=== PATIENT | male | born 1950 | race Caucasian/White ===

== ENCOUNTER 2018-01-20 16:15 | Emergency (ER) | payer MEDICARE ==
[~2018-01-20] VITALS: Ht 172.7 cm; Wt 90.7 kg
[~2018-01-20 16:15] MED LIST: ACHD5005 PO; CYCL10TA9 PO; HYDR-1231 PO; HYDR-757 PO; WARF7.5T PO
[2018-01-20] MEDS ORDERED: LACTATED RINGERS 1,000 ML IV ONE (18:24)
[2018-01-20] MEDS ORDERED: fentaNYL INJECTION 100 MCG/2 ML AMP IVP ONE (18:30)
--- NOTE | 2018-01-20 18:33 | ED Lower Extremity ---
General Chief Complaint: Lower Extremity Stated Complaint: CANT LIFT R LEG UP, PAIN AROUND GROIN Nursing Triage Note: pt c/o pain in right groin starting last night. difficulty ambulating. hx of guillian barre et blood clots. Nursing Sepsis Screen: No Definite Risk Source: patient, spouse Exam Limitations: no limitations History of Present Illness Date Seen by Provider: Jan 20, 2018 Time Seen by Provider: 18:22 Initial Comments Patient presents to ER by private conveyance with a chief complaint that today he is having pain in his anterior right hip that started spontaneously without any history of trauma. He has no history of osteoarthritis, gout, recent fevers , chills, nausea vomiting or malaise. He is not exposed takes. 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 His last DVT was 1999. He is not having any chest pain or shortness of breath or cough. He is not having any dysuria or discharge. He has no history of surgery on his abdomen, pelvis are negative. Typically walks but they hurt so bad flex his hip that he's only able to drag his leg behind him. He took some ibuprofen as well as baclofen and that only made him sleepy and did not really help the pain. Because his been so painful to get out of bed and he's been sleeping all day he says he is not eating or drinking all day. Allergies and Home Medications Allergies Coded Allergies: No Known Drug Allergies (Unverified , 03/04/14) Home Medications Cyclobenzaprine HCl 10 Mg Tablet, 10 MG PO Q8H PRN for SPASMS Prescribed by: SONAL VENTURA on 07/02/156 Hydrocodone Bit/Acetaminophen 1 Tab Tab, 1 EACH PO Q6H PRN for BREAKTHROUGH PAIN Prescribed by: DRAKE ROBERTSON on 01/20/181920 Warfarin Sod 7.5 Mg Tablet, 1 EACH PO DAILY, (Reported) Patient Home Medication List Home Medication List Reviewed: Yes Constitutional: No chills, No fever, No malaise EENTM: No ear discharge, No hearing loss, No ear pain Respiratory: No cough, No short of breath Cardiovascular: No chest pain, No palpitations Gastrointestinal: No abdominal pain, No constipation, No nausea Genitourinary: No discharge, No dysuria Musculoskeletal: No back pain, No joint pain Skin: No pruritus, No rash Psychiatric/Neurological: Denies Headache, Denies Numbness Past Cjdubkk-Xlvfjg-Meprkj Hx Patient Social History Recent Foreign Travel: No Contact w/Someone Who Travel: No Recent Infectious Disease Expo: No Family Medical History No Pertinent Family Hx Physical Exam Vital Signs Vital Signs - First Documented 01/20/18 16:58 Temp 98.7 Pulse 63 Resp 16 B/P (MAP) 139/83 (101) Pulse Ox 95 O2 Delivery Room Air Capillary Refill : Less Than 3 Seconds General Appearance: WD/WN, no apparent distress HEENT: PERRL/EOMI, pharynx normal Cardiovascular: normal peripheral pulses, regular rate, rhythm Respiratory: chest non-tender, no respiratory distress Gastrointestinal: normal bowel sounds, non tender, soft, other (right inguinal canal without herniation. Genitalia unremarkable.) Back: normal inspection, no vertebral tenderness Hips: left hip non-tender; bilateral hip normal inspection; left hip normal range of motion, left hip no evidence of injury; right hip pain (over the anterior right hip tender palpation), right hip other (range of motion flexion of the hip is limited secondary to pain) Legs: bilateral leg non-tender, bilateral leg normal inspection, bilateral leg normal range of motion, bilateral leg no evidence of injury Knees: bilateral knee non-tender, bilateral knee normal inspection, bilateral knee normal range of motion, bilateral knee no evidence of injury Neurologic/Tendon: normal sensation, normal motor functions, normal tendon functions, responds to pain, no evidence tendon injury Neurologic/Psychiatric: no motor/sensory deficits, alert, normal mood/affect, oriented x 3 Skin: normal color, warm/dry Progress/Results/Core Measures Lab Results Laboratory Tests Test 01/20/18 18:27 01/20/18 19:20 Range/Units White Blood Count 7.5 4.3-11.0 10^3/uL Red Blood Count 4.78 4.35-5.85 10^6/uL Hemoglobin 15.3 13.3-17.7 G/DL Hematocrit 45 40-54 % Mean Corpuscular Volume 95 80-99 FL Mean Corpuscular Hemoglobin 32 25-34 PG Mean Corpuscular Hemoglobin Concent 34 32-36 G/DL Red Cell Distribution Width 13.7 10.0-14.5 % Platelet Count 271 130-400 10^3/uL Mean Platelet Volume 9.3 7.4-10.4 FL Neutrophils (%) (Auto) 55 42-75 % Lymphocytes (%) (Auto) 35 12-44 % Monocytes (%) (Auto) 9 0-12 % Eosinophils (%) (Auto) 1 0-10 % Basophils (%) (Auto) 1 0-10 % Neutrophils # (Auto) 4.1 1.8-7.8 X 10^3 Lymphocytes # (Auto) 2.6 1.0-4.0 X 10^3 Monocytes # (Auto) 0.7 0.0-1.0 X 10^3 Eosinophils # (Auto) 0.1 0.0-0.3 10^3/uL Basophils # (Auto) 0.0 0.0-0.1 10^3/uL Erythrocyte Sedimentation Rate 14 0-30 MM/HR Prothrombin Time 29.0 H 12.2-14.7 SEC INR Comment 2.8 H 0.8-1.4 Activated Partial Thromboplast Time 46 H 24-35 SEC D-Dimer < 0.27 0.00-0.49 UG/ML Sodium Level 140 135-145 MMOL/L Potassium Level 4.2 3.6-5.0 MMOL/L Chloride Level 106 98-107 MMOL/L Carbon Dioxide Level 24 21-32 MMOL/L Anion Gap 10 5-14 MMOL/L Blood Urea Nitrogen 16 7-18 MG/DL Creatinine 0.67 0.60-1.30 MG/DL Estimat Glomerular Filtration Rate > 60 BUN/Creatinine Ratio 24 Glucose Level 108 H 70-105 MG/DL Uric Acid 6.7 2.6-7.2 MG/DL Calcium Level 9.4 8.5-10.1 MG/DL Total Bilirubin 0.7 0.1-1.0 MG/DL Aspartate Amino Transf (AST/SGOT) 24 5-34 U/L Alanine Aminotransferase (ALT/SGPT) 22 0-55 U/L Alkaline Phosphatase 100 40-136 U/L C-Reactive Protein High Sensitivity 0.44 0.00-0.50 MG/DL Total Protein 8.0 6.4-8.2 GM/DL Albumin 4.3 3.2-4.5 GM/DL Urine Color YELLOW Urine Clarity CLEAR Urine pH 5 5-9 Urine Specific [place] 1.025 H 1.016-1.022 Urine Protein NEGATIVE NEGATIVE Urine Glucose (UA) NEGATIVE NEGATIVE Urine Ketones NEGATIVE NEGATIVE Urine Nitrite NEGATIVE NEGATIVE Urine Bilirubin NEGATIVE NEGATIVE Urine Urobilinogen NORMAL NORMAL MG/DL Urine Leukocyte Esterase NEGATIVE NEGATIVE Urine RBC (Auto) NEGATIVE NEGATIVE Urine RBC NONE /HPF Urine WBC 0-2 /HPF Urine Crystals NONE /LPF Urine Bacteria NEGATIVE /HPF Urine Casts NONE /LPF Urine Mucus LARGE H /LPF Urine Culture Indicated NO My Orders Orders - DRAKE ROBERTSON Cbc With Automated Diff (01/20/18 18:24) Comprehensive Metabolic Panel (01/20/18 18:24) Hs C Reactive Protein (01/20/18 18:) Fibrin Degradation Products (01/20/18 18:) Protime With Inr (01/20/18:) Partial Thromboplastin Time (01/20/18 18:24) Ua Culture If Indicated (01/20/18:) Erythrocyte Sedimentation Rate (01/20/18:) Hip, Right, 2 Views (01/20/18 18:24) Saline Lock/Iv-Start (01/20/18 18:24) Lactated Ringers (Lr 1000 Ml Iv Solution (01/20/18 18:) Uric Acid (01/20/18 18:24) Fentanyl Injection (Sublimaze Injection (01/20/18 18:30) Rx-Hydrocodone/Apap 5-325 Mg (Rx-Vicodin (01/20/18 20:00) Medications Given in ED Current Medications Medications Dose Ordered Sig/Ashley Route Start Time Stop Time Status Last Admin Dose Admin Fentanyl Citrate 50 mcg ONCE ONCE IVP 01/20/18 18:30 01/20/18 18:31 DC 01/20/18 19:00 50 MCG Lactated Ringer's 1,000 ml @ 0 mls/hr Q0M ONCE IV 01/20/18 18:24 01/20/18 18:28 DC 01/20/18 19:00 0 MLS/HR Vital Signs/I&O 01/20/18 16:58 Temp 98.7 Pulse 63 Resp 16 B/P (MAP) 139/83 (101) Pulse Ox 95 O2 Delivery Room Air Blood Pressure Mean: 101 Progress Note : Time: 18:32 Progress Note Anterior hip pain probably do with the socket. No recent steroid use however with think about occult fractures, pathological fractures, osteoporosis, septic hip, osteoarthritis. As of the acute onset and no real history of hip pain and osteoarthritis is less likely. We'll check a CRP/ESR as well as a d-dimer and some basic labs. We'll obtain a plain view x-ray Diagonstic Imaging: Xray Plain Films/CT/US/NM/MRI: hip (r) Comments %(RAD)RES..mtdd.print.filter("cj")VIA [facility] %(RAD)RES..mtdd.print.filter("cj")[place], [place] NAME: LINA ARREOLA [facility] REC#: [id number] PT STATUS: REG ER : 1950 PHYSICIAN: DRAKE ROBERTSON MD ADMIT DATE: 01/20/18/ER Draft Date of Exam:01/20/18 HIP, RIGHT, 2 VIEWS INDICATION: Right hip pain. EXAMINATION: Two views of the right hip were obtained. FINDINGS: No fracture, dislocation or other acute abnormality. IMPRESSION: Negative right hip. Dictated on workstation # [id number] Dict: 01/20/181843 Trans: 01/20/181846 [facility] [phone] Interpreted by: MILENA BROWN MD Electronically signed by: Reviewed: Reviewed by Me Consults : Consulting Physician: ROBERT BERTRAND DO Consults Notes Discussed case lab imaging findings and he recommends getting an MRI. If the MRI is positive for occult stress fracture he takes it the next day. He'll keep the patient in a nonweightbearing status. If it's not positive then just have the patient call his clinic and get an appointment for a week. He is not as concerned about a hemarthrosis. Departure Impression Primary Impression: Sprain and strain of unspecified site of hip and thigh Disposition: 01 HOME, SELF-CARE Condition: Improved Departure-Patient Inst. Decision time for Depature: 21:04 Referrals: [facility] (PCP/Family) Primary Care Physician Patient Instructions: Active Range of Motion Exercises, Back and Hips Add. Discharge Instructions: Apply ice for 20 minutes every 4 hours intermingled with heat and icy hot to your right hip. Use either Naprosyn 2 capsules twice a day or ibuprofen 800 mg 3 times a day scheduled for the next 2 weeks. He can also use 1000 g of Tylenol every 8 hours as needed and if this is still not working for your pain you can take one tablet of the hydrocodone every 6 hours as needed. Follow up with your primary care provider in the next 1-2 weeks and if you're not feeling improvement can talk about physical therapy on either an outpatient or inpatient basis. You should not bear any weight on your right leg. Use a wheelchair and get the MRI outpatient. If there is an occult stress fracture have your primary care office contact Dr. Bertrand, [facility] at [phone]. If there is no fracture then just call Dr. Bertrand and make an appointment to follow-up in the next week. All discharge instructions reviewed with patient and/or family. Voiced understanding. Scripts Hydrocodone Bit/Acetaminophen (Hydrocodone/Acetaminophen 5/325mg Tablet) 1 Tab Tab 1 EACH PO Q6H PRN for BREAKTHROUGH PAIN, #15 TAB 0 Refills Prov: DRAKE ROBERTSON 01/20/18 Copy Copies To 1: BRITNEY DRIVER DO DRAKE ROBERTSON Jan 20, 2018 18:33
[2018-01-20 18:35] LABS: BASOPHILS % (AUTO) 1 % (0-10); EOSINOPHILS # (AUTO) 0.1 10^3/uL (0.0-0.3); EOSINOPHILS % (AUTO) 1 % (0-10); HEMATOCRIT 45 % (40-54); HEMOGLOBIN 15.3 G/DL (13.3-17.7); LYMPHOCYTES # (AUTO) 2.6 X 10^3 (1.0-4.0); LYMPHOCYTES % (AUTO) 35 % (12-44); MEAN CORPUSCULAR HEMOGLOBIN 32 PG (25-34); MEAN CORPUSCULAR HGB CONC 34 G/DL (32-36); MEAN CORPUSCULAR VOLUME 95 FL (80-99); MEAN PLATELET VOLUME 9.3 FL (7.4-10.4); MONOCYTES # (AUTO) 0.7 X 10^3 (0.0-1.0); MONOCYTES % (AUTO) 9 % (0-12); NEUTROPHILS # (AUTO) 4.1 X 10^3 (1.8-7.8); NEUTROPHILS % (AUTO) 55 % (42-75); PLATELET COUNT 271 10^3/uL (130-400); RED BLOOD COUNT 4.78 10^6/uL (4.35-5.85); RED CELL DISTRIBUTION WIDTH 13.7 % (10.0-14.5); WHITE BLOOD COUNT 7.5 10^3/uL (4.3-11.0)
--- NOTE | 2018-01-20 18:47 | Diagnostic Imaging Report ---
INDICATION: Right hip pain. EXAMINATION: Two views of the right hip were obtained. FINDINGS: No fracture, dislocation or other acute abnormality. IMPRESSION: Negative right hip. Dictated by: Dictated on workstation # [id number]
[2018-01-20 18:48] LABS: INR 2.8 (0.8-1.4)
[2018-01-20 18:49] LABS: PARTIAL THROMBOPLASTIN TIME 46 SEC (24-35)
[2018-01-20 18:51] LABS: FIBRIN DEGRADATION PRODUCTS < 0.27 UG/ML (0.00-0.49)
[2018-01-20 18:58] LABS: ALANINE AMINOTRANSFERASE 22 U/L (0-55); ALBUMIN 4.3 GM/DL (3.2-4.5); ALKALINE PHOSPHATASE 100 U/L (40-136); BILIRUBIN,TOTAL 0.7 MG/DL (0.1-1.0); BUN/CREATININE RATIO 24; CALCIUM 9.4 MG/DL (8.5-10.1); CARBON DIOXIDE 24 MMOL/L (21-32); CHLORIDE 106 MMOL/L (98-107); CREATININE SERUM 0.67 MG/DL (0.60-1.30); GFR ESTIMATED > 60; GLUCOSE 108 MG/DL (70-105); POTASSIUM 4.2 MMOL/L (3.6-5.0); SODIUM 140 MMOL/L (135-145); URIC ACID 6.7 MG/DL (2.6-7.2)
[2018-01-20 19:06] LABS: ERYTHROCYTE SEDIMENTATION RATE 14 MM/HR (0-30)
[2018-01-20] MEDS ORDERED: ACHD5005 PO (19:21)
[2018-01-20 19:27] LABS: BILIRUBIN,URINE NEGATIVE (NEGATIVE); CLARITY,URINE CLEAR; COLOR,URINE YELLOW; GLUCOSE, URINE (UA) NEGATIVE (NEGATIVE); KETONES,URINE NEGATIVE (NEGATIVE); LEUKOCYTE ESTERASE ,URINE NEGATIVE (NEGATIVE); NITRITE,URINE NEGATIVE (NEGATIVE); PH,URINE 5 (5-9); PROTEIN,URINE NEGATIVE (NEGATIVE); UROBILINOGEN,URINE NORMAL (NORMAL)
[2018-01-20] MEDS ORDERED: RX-HYDROCODONE/APAP 5/325 MG #4 TAB PK PO PRN (20:00)
[2018-01-20 20:08] LABS: BACTERIA,URINE NEGATIVE /HPF; WBC,URINE 0-2 /HPF
[2018-01-20 21:44] VITALS: BP 125/88
== END 2018-01-20 21:42 | disposition home or self-care (01) ==
LOC: EDUNIT# 16:15 → ER 16:18
DX: S76.011A Strain of muscle, fascia and tendon of right hip, initial encounter (principal); Z79.01 Long term (current) use of anticoagulants; Z86.14 Personal history of Methicillin resistant Staphylococcus aureus infection; Z86.718 Personal history of other venous thrombosis and embolism; X58.XXXA Exposure to other specified factors, initial encounter
CPT/HCPCS: 36415; 73502; 80053; 81000; 84550; 85025; 85379; 85610; 85652; 85730; 86141; 96361; 96374

== ENCOUNTER 2019-05-09 15:54 | Emergency (ER) | payer MEDICARE ==
[~2019-05-09] VITALS: Ht 172.7 cm; Wt 90.7 kg
--- OUTSIDE RECORDS SUMMARY | 2019-05-09 16:00 | XMS REPORT ---
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 Active 693508133 Problem BPH (benign prostatic hyperplasia) N40.0 Active 941732049 Problem History of CVA (cerebrovascular accident) Z86.73 Active 327656172 Problem Anxiety F41.9 Active 22859784 Problem Sciatica of left side M54.32 Active 38084150 Problem Insomnia G47.00 Active 656346640 Problem long-term current use of anticoagulant Z79.01 Active 411021171 Problem Hyperlipidemia, unspecified E78.5 Active 14660681 Problem Neuropathy G62.9 Active 829076533 Problem Other male erectile dysfunction N52.8 Active 674968133 Problem 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 Active 8124347 Problem Frequent falls R29.6 Active 564342351 ALLERGIES No Information ENCOUNTERS Encounter Location Date Diagnosis [place] [id number] [place] [address] Jan, Leg weakness, bilateral R29.898 ; Left foot drop M21.372 ; Foot drop, right foot M21.371 ; 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 ; Anxiety F41.9 ; Cardiomegaly I51.7 and Hyperlipidemia, unspecified E78.5 [place] [address] [address] Dec, Anxiety F41.9 [place] [address] [place] [id number] [place] [address] Nov, Anxiety F41.9 [place] [address] [place] [id number] [place] [address] Nov, Sciatica of left side M54.32 and long-term current use of anticoagulant Z79.01 [place] [address] [address] Oct, Anxiety F41.9 [place] [address] [address] Oct, Non-intractable vomiting with nausea, unspecified vomiting type R11.2 [place] [address] [address] Oct, Anxiety F41.9 [place] [address] [address] Sep, Anxiety F41.9 [place] [address] [address] Aug, Hyperlipidemia, unspecified E78.5 ; long-term current use of anticoagulant therapy Z79.01 and Anxiety F41.9 [place] [address] [address] Aug, Anxiety F41.9 [place] [address] [address] Aug, [place] [address] [address] Jul, Hyperlipidemia, unspecified E78.5 ; Anxiety F41.9 and long-term current use of anticoagulant therapy Z79.01 [place] [address] [address] Jul, Anxiety F41.9 [place] [address] [address] Jun, Anxiety F41.9 [place] [address] [place] [address] Jun, long-term current use of anticoagulant therapy Z79.01 [place] [address] [place] [id number] [place] [address] May, Anxiety F41.9 [place] [address] [place] [id number] [place] [address] May, intermediate card tender current use of anticoagulant therapy Z79.01 [place] [address] [place] [id number] [place] [address] Apr, Anxiety F41.9 [place] [address] [place] [id number] [place] [address] Mar, Anxiety F41.9 ; Acute bilateral low back pain without sciatica M54.5 ; Generalized weakness R53.1 ; Frequent falls R29.6 and 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 [place] [address] [place] [id number] [place] [address] Mar, Anxiety F41.9 [place] [address] [place] [id number] [place] [address] 13 Mar, 2018 Medicare annual wellness visit, initial Z00.00 ; Primary hypercoagulable state D68.59 ; Anxiety F41.9 ; 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 ; Neuropathy G62.9 ; Hyperlipidemia, unspecified E78.5 ; Cardiomegaly I51.7 ; long-term current use of anticoagulant therapy Z79.01 and Insomnia G47.00 [place] [id number] [place] [address] Mar, intermediate card tender current use of anticoagulant therapy Z79.01 [place] [id number] [place] [address] Mar, long-term current use of anticoagulant therapy Z79.01 [place] [address] [place] [address] February, long-term current use of anticoagulant therapy Z79.01 and 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 [facility] [address] [address] February, [facility] [address] [address] February, Anxiety F41.9 [facility] [address] [address] Jan, Anxiety F41.9 [facility] [address] [place] [address] Jan, [place] [address] [place] [id number] [place] [address] Dec, Anxiety F41.9 [place] [address] [place] [address] Dec, [place] [address] [place] [address] Dec, 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 ; Cardiomegaly I51.7 ; 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 and 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 [place] [address] [address] Dec, 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 ; Cardiomegaly I51.7 ; 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 and 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 [facility] [address] [place] [id number] [address] Nov, [place] [id number] [id number] Nov, [place] [address] [place] [id number] [address] Oct, [facility] [address] [place] [address] Sep, [place] [address], [place] [address] Sep, Sprain of ligaments of cervical spine, subsequent encounter S13.4XXD and long-term current use of anticoagulant therapy Z79.01 [place] [address], [place] [address] Aug, [place] [address] [place] [id number] [place] [address] Aug, 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 [place] [address] [place] [id number] [place] [address] Jul, [place] [address] [place] [id number] [place] [address] Jun, [place] [address] [place] [id number] [place] [address] Jun, [place] [address] [place] [address] May, [place] [address] [place] [id number] [place] [address] May, Sprain of ligaments of cervical spine, subsequent encounter S13.4XXD [place] [address], [place] [address] Apr, Medicare welcome exam Z00.00 ; Medicare annual wellness visit, initial Z00.00 ; Medicare annual wellness visit, subsequent Z00.00 and Vision changes H53.9 [place] [address], [place] [address] Apr, Anxiety F41.9 [place] [address], [place] [address] Mar, History of CVA (cerebrovascular accident) Z86.73 ; Cardiomegaly I51.7 ; intermediate card tender current use of anticoagulant therapy Z79.01 ; Hyperlipidemia, unspecified E78.5 ; Insomnia G47.00 ; BPH (benign prostatic hyperplasia) N40.0 ; Neuropathy G62.9 ; Anxiety F41.9 and Other male erectile dysfunction N52.8 [facility] [address] [place] [id number] [place] [address] Mar, [facility] [address] [place] [id number] [place] [address] February, [facility] [address] [place] [id number] [place] [address] Jan, [facility] [address] [place] [id number] [place] [address] Dec, [facility] [address] [place] [id number] [place] [address] Nov, [facility] [address] [place] [id number] [place] [address] Oct, [facility] [address] [place] [id number] [place] [address] Oct, [facility] [address] [place] [id number] [place] [address] Oct, [facility] [address] [place] [id number] [place] [address] Oct, [facility] [address] [place] [address] Oct, long-term current use of anticoagulant therapy Z79.01 and Hyperlipidemia, unspecified E78.5 [facility] [address] [place] [id number] [place] [address] Aug, long-term current use of anticoagulant therapy Z79.01 ; Cardiomegaly I51.7 ; Insomnia G47.00 ; Neuropathy G62.9 ; Hyperlipidemia, unspecified E78.5 and Anxiety F41.9 [facility] [address], [place] [address] Aug, [facility] [place] [address] [place] [address] 17 Aug, 2016 Impacted cerumen of right ear H61.21 and Neuropathy G62.9 [facility] [place] [id number] [place] [address] 14 Aug, 2016 Otalgia of right ear H92.01 and Impacted cerumen of right ear H61.21 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 ; intermediate card tender current use of anticoagulant therapy Z79.01 ; Hyperlipidemia, unspecified E78.5 ; Cardiomegaly I51.7 ; Insomnia G47.00 and BPH (benign prostatic hyperplasia) N40.0 [place] [id number] [place] [address] Dec, [place] [id number] [place] [address] Nov, intermediate card tender current use of anticoagulant therapy Z79.01 ; 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 ; URI (upper respiratory infection) J06.9 and Insomnia G47.00 [facility] [id number] [address] Oct, [place] [id number] [place] [address] Oct, long-term current use of anticoagulant therapy Z79.01 [place] [id number] [place] [address] Oct, Environmental allergies Z91.09 and Primary hypercoagulable state D68.59 [place] [id number] [place] [address] Sep, Hyperlipidemia, unspecified E78.5 and long-term current use of anticoagulant therapy Z79.01 [place] [address], [place] [address] Sep, Dyslipidemia 272.4 and intermediate card tender current use of anticoagulant therapy Z79.01 [place] [address], [place] [address] Sep, Primary hypercoagulable state D68.59 [place] [address] [place] [id number] [place] [address] Sep, [place] [address] [place] [id number] [place] [address] Aug, Whiplash injury S13.4XXA [place] [address] [place] [id number] [place] [address] Jul, intermediate card tender current use of anticoagulant therapy Z79.01 [place] [address] [place] [id number] [place] [address] Jul, Sprain of ligaments of cervical spine, subsequent encounter S13.4XXD ; Insomnia, unspecified G47.00 ; Hyperlipidemia, unspecified E78.5 and intermediate card tender current use of anticoagulant therapy Z79.01 [place] [address] [address] Jul, [place] [address] [place] [address] Jun, [place] [address] [place] [id number] [place] [address] Apr, Dyslipidemia 272.4 [place] [address] [place] [id number] [place] [address] Apr, Primary hypercoagulable state 289.81 [place] [address] [place] [id number] [place] [address] Apr, Primary hypercoagulable state 289.81 [place] [address] [place] [id number] [place] [address] Apr, Primary hypercoagulable state 289.81 [facility] [address] [id number] [place] [address] 14 Jan, 2015 [facility] [place] [facility] [address] [id number] [place] [address] Jan, [facility] [address] [id number] [place] [address] Dec, [facility] [place] [facility] [address] [id number] [place] [address] Dec, [facility] [address] [facility] [id number] [place] [address] Dec, [facility] [address] [facility] [id number] [place] [address] Dec, [facility] [address] [facility] [id number] [place] [address] Nov, [facility] [address] [facility] [id number] [place] [address] Nov, [facility] [address] [facility] [id number] [place] [address] Nov, [facility] [address] [facility] [id number] [place] [address] Nov, [facility] [address] [facility] [id number] [place] [address] Apr, [facility] [address] [facility] [id number] [address] Mar, [facility] [place] [facility] [address] [facility] [id number] [place] [address] Mar, [facility] [place] [facility] [address] [facility] [id number] [place] [address] Mar, [facility] [place] [facility] [address] [facility] [id number] [address] Mar, [facility] [place] [facility] [address] [id number] [place] [address] Mar, [facility] [place] [facility] [address] [id number] [place] [address] Mar, [facility] [place] [facility] [address] [id number] [place] [address] Mar, [facility] [place] [facility] [address] [id number] [place] [address] Mar, [facility] [place] [facility] [address] [id number] [place] [address] Mar, [facility] [place] [facility] [address] [id number] [place] [address] Mar, [facility] [place] [facility] [address] [id number] [place] [address] February, [facility] [place] [facility] [address] [id number] [place] [address] February, [facility] [place] [facility] [address] [id number] [place] [address] February, [facility] [place] [facility] [address] [id number] [place] [address] February, [facility] [place] [facility] [address] [id number] [place] [address] February, [facility] [place] [facility] [address] [id number] [place] [address] February, [facility] [place] [facility] [address] [id number] [place] [address] February, [facility] [place] [facility] [address] [id number] [place] [address] February, [facility] [place] [facility] [address] [id number] [place] [address] Jan, [facility] [place] [facility] [address] [id number] [place] [address] Jan, IMMUNIZATIONS No Known Immunizations SOCIAL HISTORY Never Assessed REASON FOR VISIT [facility] PLAN OF CARE VITAL SIGNS MEDICATIONS No Known Medications RESULTS No Results PROCEDURES No Known procedures INSTRUCTIONS MEDICATIONS ADMINISTERED No Known Medications MEDICAL (GENERAL) HISTORY Type Description Date Medical History Hx of DVT Medical History 

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
--- OUTSIDE RECORDS SUMMARY | 2019-05-09 16:01 | XMS REPORT ---
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 Active 561661612 Problem [facility] current use of anticoagulant therapy Z79.01 Active 227145464 Problem Frequent falls R29.6 Active 677172862 Problem 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 Active 5024075 Problem History of CVA (cerebrovascular accident) Z86.73 Active 834233930 Problem Anxiety F41.9 Active 44822915 Problem Other male erectile dysfunction N52.8 Active 959720085 Problem Neuropathy G62.9 Active 559180530 ALLERGIES No Information ENCOUNTERS Encounter Location Date Diagnosis [facility] [facility] [id number] [place] [address] Sep, Anxiety F41.9 [facility] [facility] [address] [place] [id number] [place] [address] Aug, Hyperlipidemia, unspecified E78.5 ; terminal carman current use of anticoagulant therapy Z79.01 and Anxiety F41.9 [facility] [place] [facility] [id number] [place] [address] Aug, Anxiety F41.9 [place] [id number] [place] [address] Aug, [place] [id number] [place] [address] Jul, Hyperlipidemia, unspecified E78.5 ; Anxiety F41.9 and terminal carman current use of anticoagulant therapy Z79.01 [place] [id number] [place] [address] Jul, Anxiety F41.9 [place] [address] [id number] [place] [address] Jun, Anxiety F41.9 [place] [address] [id number] [place] [address] Jun, [facility]FP current use of anticoagulant therapy Z79.01 [place] [address] [id number] [place] [address] May, Anxiety F41.9 [place] [id number] [place] [address] May, [facility]FP current use of anticoagulant therapy Z79.01 [place] [address] [id number] [place] [address] Apr, Anxiety F41.9 [place] [address] [id number] [place] [address] Mar, Anxiety F41.9 ; Acute bilateral low back pain without sciatica M54.5 ; Generalized weakness R53.1 ; Frequent falls R29.6 and 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 [place] [id number] [place] [address] Mar, Anxiety F41.9 [place] [id number] [place] [address] Mar, Medicare annual wellness visit, initial Z00.00 ; Primary hypercoagulable state D68.59 ; Anxiety F41.9 ; 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 ; Neuropathy G62.9 ; Hyperlipidemia, unspecified E78.5 ; Cardiomegaly I51.7 ; terminal carman current use of anticoagulant therapy Z79.01 and Insomnia G47.00 [place] [id number] [place] [address] Mar, [facility]FP current use of anticoagulant therapy Z79.01 [place] [address] [place] [id number] [place] [address] Mar, [facility] current use of anticoagulant therapy Z79.01 [place] [id number] [place] [address] February, [facility] current use of anticoagulant therapy Z79.01 and 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 [place] [address] [id number] [place] [address] February, [place] [address] [id number] [place] [address] February, Anxiety F41.9 [place] [id number] [place] [address] Jan, Anxiety F41.9 [place] [id number] [place] [address] Jan, [place] [id number] [place] [address] Dec, Anxiety F41.9 [place] [address] [id number] [place] [address] Dec, [place] [address] [id number] [place] [address] Dec, 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 ; Cardiomegaly I51.7 ; 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 and 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 [place] [address] [id number] [place] [address] Dec, 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 ; Cardiomegaly I51.7 ; 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 and 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 [facility] [facility] [id number] [place] [address] Nov, [facility] [id number] [id number] Nov, [place] [address] [id number] [place] [address] Oct, [place] [address] [address] [id number] [place] [address] Sep, [place] [address] [address] [id number] [place] [address] Sep, Sprain of ligaments of cervical spine, subsequent encounter S13.4XXD and terminal carman current use of anticoagulant therapy Z79.01 [place] [address] [id number] [place] [address] Aug, [place] [address] [id number] [place] [address] Aug, 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 [place] [address] [address] [id number] [place] [address] Jul, [place] [address] [place] [address] Jun, [place] [address] [id number] [place] [address] Jun, [place] [address] [id number] [place] [address] May, [place] [address] [address] [id number] [place] [address] May, Sprain of ligaments of cervical spine, subsequent encounter S13.4XXD [place] [address] [id number] [place] [address] Apr, Medicare welcome exam Z00.00 ; Medicare annual wellness visit, initial Z00.00 ; Medicare annual wellness visit, subsequent Z00.00 and Vision changes H53.9 [facility] [address] [address] Apr, Anxiety F41.9 [facility] [address] [address] Mar, History of CVA (cerebrovascular accident) Z86.73 ; Cardiomegaly I51.7 ; [facility] current use of anticoagulant therapy Z79.01 ; Hyperlipidemia, unspecified E78.5 ; Insomnia G47.00 ; BPH (benign prostatic hyperplasia) N40.0 ; Neuropathy G62.9 ; Anxiety F41.9 and Other male erectile dysfunction N52.8 [place] [address] [place] [id number] [address] Mar, [place] [address] [address] [id number] [place] [address] February, [facility] [id number] [address] Jan, [facility] [address] [id number] [address] Dec, [facility] [address] [place] [address] Nov, [facility] [id number] [address] Oct, [facility] [address] [place] [address] Oct, [facility] [id number] [address] Oct, [facility] [address] [address] Oct, [facility] [id number] [place] [address] Oct, terminal carman current use of anticoagulant therapy Z79.01 and Hyperlipidemia, unspecified E78.5 [place] [id number] [place] [address] 30 Aug, 2016 [facility] current use of anticoagulant therapy Z79.01 ; Cardiomegaly I51.7 ; Insomnia G47.00 ; Neuropathy G62.9 ; Hyperlipidemia, unspecified E78.5 and Anxiety F41.9 [place] [id number] [place] [address] Aug, [place] [address] [address] [id number] [place] [address] 17 Aug, 2016 Impacted cerumen of right ear H61.21 and Neuropathy G62.9 [facility] [place] [id number] [place] [address] 14 Aug, 2016 Otalgia of right ear H92.01 and Impacted cerumen of right ear H61.21 [facility] [place] [id number] [place] [address] 27 Jan, 2016 Rhinitis, allergic J30.9 [place] [id number] [place] [address] 07 Jan, 2016 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 [address] [id number] [place] [address] Oct, [place] [address] [place] [id number] [place] [address] Oct, [facility] current use of anticoagulant therapy Z79.01 [place] [address] [place] [address] Oct, Environmental allergies Z91.09 and Primary hypercoagulable state D68.59 [place] [address] [place] [id number] [place] [address] Sep, Hyperlipidemia, unspecified E78.5 and terminal carman current use of anticoagulant therapy Z79.01 [place] [address] [id number] [place] [address] Sep, Dyslipidemia 272.4 and terminal carman current use of anticoagulant therapy Z79.01 [place] [address] [id number] [place] [address] Sep, Primary hypercoagulable state D68.59 [place] [address] [id number] [place] [address] Sep, [place] [address] [id number] [place] [address] Aug, Whiplash injury S13.4XXA [place] [address] [address] [id number] [place] [address] Jul, [facility] current use of anticoagulant therapy Z79.01 [place] [address] [place] [address] Jul, Sprain of ligaments of cervical spine, subsequent encounter S13.4XXD ; Insomnia, unspecified G47.00 ; Hyperlipidemia, unspecified E78.5 and [facility]FP current use of anticoagulant therapy Z79.01 [place] [address] [place] [address] Jul, [place] [address] [address] Jun, [facility] [id number] [address] Apr, Dyslipidemia 272.4 [facility] [id number] [address] Apr, Primary hypercoagulable state 289.81 [facility] [facility] [address] [address] Apr, Primary hypercoagulable state 289.81 [facility] [address] [facility] [id number] [place] [address] Apr, Primary hypercoagulable state 289.81 [facility] [address] [address] Jan, [facility] [address] [place] [address] Jan, [facility] [address] [place] [address] Dec, [facility] [address] [id number] [address] Dec, [facility] [address] [address] Dec, [facility] [address] [address] Dec, [facility] [address] [address] [id number] [address] Nov, [facility] [id number] [address] Nov, [facility] [id number] [address] Nov, [facility] [place] [facility] [id number] [address] Nov, [facility] [place] [facility] [address] [id number] [place] [address] 15 Apr, 2014 [facility] [place] [facility] [address] [id number] [place] [address] Mar, [facility] [place] [facility] [address] [id number] [place] [address] Mar, [facility] [place] [facility] [address] [id number] [place] [address] Mar, [facility] [place] [facility] [address] [id number] [place] [address] Mar, [facility] [place] [facility] [address] [id number] [place] [address] Mar, [facility] [place] [facility] [address] [id number] [place] [address] Mar, [facility] [place] [facility] [address] [id number] [place] [address] Mar, [facility] [place] [facility] [address] [id number] [place] [address] Mar, [facility] [place] [facility] [address] [id number] [place] [address] Mar, [facility] [place] [facility] [address] [id number] [place] [address] Mar, [facility] [place] [facility] [address] [id number] [place] [address] February, [facility] [place] [facility] [address] [id number] [place] [address] February, [facility] [place] [facility] [address] [id number] [place] [address] February, [facility] [place] [facility] [address] [id number] [place] [address] February, [facility] [place] [facility] [address] [id number] [place] [address] February, [facility] [place] [facility] [address] [facility] [id number] [place] [address] February, [facility] [place] [facility] [address] [facility] [id number] [place] [address] February, [facility] [facility] [address] [facility] [id number] [place] [address] February, [facility] [place] [facility] [address] [facility] [id number] [place] [address] Jan, [facility] [facility] [address] [facility] [id number] [place] [address] Jan, IMMUNIZATIONS No Known Immunizations SOCIAL HISTORY Never Assessed REASON FOR VISIT Controlled Med Refill PLAN OF CARE VITAL SIGNS MEDICATIONS Medication Instructions Dosage Frequency Start Date End Date Duration Status Valium 5 mg Orally Twice a day 1 tablet as needed 12h 28 Active RESULTS No Results PROCEDURES No Known procedures INSTRUCTIONS MEDICATIONS ADMINISTERED No Known Medications MEDICAL (GENERAL) HISTORY Type Description Date Medical History Hx of DVT Medical History 2001 Gullian [place] Syndrome Medical History Closed fracture of one or more phalanges of foot Surgical History Right calf secondary to compartment syndrome 2005 Hospitalization History DVT- NO VENA CAVA FILTER 89,91,2000
--- OUTSIDE RECORDS SUMMARY | 2019-05-09 16:01 | XMS REPORT ---
Author Author AMANDA TY Organization [facility] Address [address] [place] [address] Care Team Providers Care Prison Guard Supervisor Name Role Phone AMANDA TY Unavailable PROBLEMS Type Condition ICD9-CM Code OTP63-NI Code Onset Dates Condition Status SNOMED Code Problem Hyperlipidemia, unspecified E78.5 Active 70254249 Problem BPH (benign prostatic hyperplasia) N40.0 Active 739515495 Problem Insomnia G47.00 Active 714138227 Problem Primary hypercoagulable state D68.59 Active 79751184 Problem Cardiomegaly I51.7 Active 4726076 Problem Atherosclerotic heart disease of [place] coronary artery with unspecified angina pectoris I25.119 Active 880627731 Problem senior living current use of anticoagulant therapy Z79.01 Active 965774846 Problem Frequent falls R29.6 Active 692190528 Problem 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 Active 4185678 Problem History of CVA (cerebrovascular accident) Z86.73 Active 073664722 Problem Anxiety F41.9 Active 85777663 Problem Other male erectile dysfunction N52.8 Active 315611725 Problem Neuropathy G62.9 Active 762981795 ALLERGIES No Information ENCOUNTERS Encounter Location Date Diagnosis [facility] [id number] [place] [address] Aug, Hyperlipidemia, unspecified E78.5 ; 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 and Anxiety F41.9 [facility] [address] [address] Aug, Anxiety F41.9 [place] [id number] [place] [address] Aug, [place] [address] [place] [address] Jul, Hyperlipidemia, unspecified E78.5 ; Anxiety F41.9 and 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 [place] [address] [place] [address] Jul, Anxiety F41.9 [place] [id number] [address] 12 Jun, 2018 Anxiety F41.9 [place] [id number] [place] [address] 07 Jun, 2018 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 [place] [id number] [place] [address] May, Anxiety F41.9 [place] [id number] [place] [address] 10 May, 2018 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 [place] [id number] [place] [address] Apr, Anxiety F41.9 [place] [id number] [place] [address] 28 Mar, 2018 Anxiety F41.9 ; Acute bilateral low back pain without sciatica M54.5 ; Generalized weakness R53.1 ; Frequent falls R29.6 and 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 [place] [address] [address] Mar, Anxiety F41.9 [place] [address] [place] [address] 13 Mar, 2018 Medicare annual wellness visit, initial Z00.00 ; Primary hypercoagulable state D68.59 ; Anxiety F41.9 ; Atherosclerotic heart disease of [place] coronary artery with unspecified angina pectoris I25.119 ; Neuropathy G62.9 ; Hyperlipidemia, unspecified E78.5 ; Cardiomegaly I51.7 ; senior living current use of anticoagulant therapy Z79.01 and Insomnia G47.00 [place] [id number] [address] Mar, senior living current use of anticoagulant therapy Z79.01 [place] [address] [place] [address] Mar, senior living current use of anticoagulant therapy Z79.01 [place] [address] [place] [address] February, 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 and 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 [place] [address] [place] [address] February, [place] [id number] [place] [address] February, Anxiety F41.9 [place] [id number] [place] [address] Jan, Anxiety F41.9 [place] [id number] [place] [address] Jan, [place] [address] [place] [address] Dec, Anxiety F41.9 [place] [address] [place] [address] Dec, [place] [address] [place] [address] Dec, 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 ; Cardiomegaly I51.7 ; Atherosclerotic heart disease of [place] coronary artery with unspecified angina pectoris I25.119 and 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 [place] [address] [place] [address] Dec, 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 ; Cardiomegaly I51.7 ; Atherosclerotic heart disease of [place] coronary artery with unspecified angina pectoris I25.119 and 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 [facility] [place] [address] [address] Nov, [facility] [address] [id number] [id number] Nov, [facility] [place] [address] [address] Oct, [place] [address] [place] [address] Sep, [facility] [address] [address] Sep, Sprain of ligaments of cervical spine, subsequent encounter S13.4XXD and 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 [place] [address] [address] Aug, [place] [address] [place] [address] 07 Aug, 2017 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 [facility] [place] [address] [address] Jul, [place] [address] [place] [address] Jun, [facility] [address] [address] Jun, [facility] [address] [address] May, [facility] [address] [place] [id number] [address] May, Sprain of ligaments of cervical spine, subsequent encounter S13.4XXD [facility] [address] [address] Apr, Medicare welcome exam Z00.00 ; Medicare annual wellness visit, initial Z00.00 ; Medicare annual wellness visit, subsequent Z00.00 and Vision changes H53.9 [place] [address] [address] Apr, Anxiety F41.9 [facility] [id number] [place] [address] Mar, History of CVA (cerebrovascular accident) Z86.73 ; Cardiomegaly I51.7 ; 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 ; Hyperlipidemia, unspecified E78.5 ; Insomnia G47.00 ; BPH (benign prostatic hyperplasia) N40.0 ; Neuropathy G62.9 ; Anxiety F41.9 and Other male erectile dysfunction N52.8 [place] [id number] [place] [address] Mar, [place] [id number] [place] [address] February, [place] [id number] [place] [address] Jan, [place] [id number] [place] [address] Dec, [place] [id number] [place] [address] Nov, [place] [address] [address] Oct, [place] [address] [place] [address] Oct, [place] [address] [address] Oct, [place] [id number] [place] [address] Oct, [place] [address] [address] Oct, 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 and Hyperlipidemia, unspecified E78.5 [place] [id number] [place] [address] 30 Aug, 2016 senior living current use of anticoagulant therapy Z79.01 ; Cardiomegaly I51.7 ; Insomnia G47.00 ; Neuropathy G62.9 ; Hyperlipidemia, unspecified E78.5 and Anxiety F41.9 [place] [id number] [place] [address] Aug, [place] [id number] [place] [address] 17 Aug, 2016 Impacted cerumen of right ear H61.21 and Neuropathy G62.9 [facility] [address] [address] 14 Aug, 2016 Otalgia of right ear H92.01 and Impacted cerumen of right ear H61.21 [facility] [place] [id number] [place] [address] Jan, Rhinitis, allergic J30.9 [place] [address] [place] [address] 07 Jan, 2016 Atherosclerotic heart disease of [place] coronary artery with unspecified angina pectoris I25.119 ; senior living current use of anticoagulant therapy Z79.01 ; Hyperlipidemia, unspecified E78.5 ; Cardiomegaly I51.7 ; Insomnia G47.00 and BPH (benign prostatic hyperplasia) N40.0 [place] [id number] [place] [address] Dec, [place] [id number] [place] [address] 17 Nov, 2015 senior living current use of anticoagulant therapy Z79.01 ; Atherosclerotic heart disease of [place] coronary artery with unspecified angina pectoris I25.119 ; URI (upper respiratory infection) J06.9 and Insomnia G47.00 [facility] [address] [id number] [place] [address] Oct, [place] [id number] [place] [address] Oct, senior living current use of anticoagulant therapy Z79.01 [place] [address] [place] [address] Oct, Environmental allergies Z91.09 and Primary hypercoagulable state D68.59 [place] [id number] [place] [address] Sep, Hyperlipidemia, unspecified E78.5 and senior living current use of anticoagulant therapy Z79.01 [place] [id number] [place] [address] Sep, Dyslipidemia 272.4 and senior living current use of anticoagulant therapy Z79.01 [place] [id number] [place] [address] Sep, Primary hypercoagulable state D68.59 [place] [id number] [place] [address] Sep, [place] [id number] [place] [address] Aug, Whiplash injury S13.4XXA [place] [id number] [place] [address] Jul, senior living current use of anticoagulant therapy Z79.01 [place] [address] [place] [address] Jul, Sprain of ligaments of cervical spine, subsequent encounter S13.4XXD ; Insomnia, unspecified G47.00 ; Hyperlipidemia, unspecified E78.5 and senior living current use of anticoagulant therapy Z79.01 [place] [id number] [place] [address] Jul, [place] [id number] [place] [address] Jun, [place] [id number] [place] [address] Apr, Dyslipidemia 272.4 [facility] [address] [facility] [id number] [place] [address] Apr, Primary hypercoagulable state 289.81 [facility] [address] [facility] [id number] [address] Apr, Primary hypercoagulable state 289.81 [facility] [address] [facility] [id number] [place] [address] Apr, Primary hypercoagulable state 289.81 [facility] [address] [facility] [id number] [place] [address] Jan, [facility] [address] [facility] [id number] [place] [address] Jan, [facility] [address] [address] Dec, [facility] [address] [id number] [address] Dec, [facility] [place] [facility] [id number] [address] Dec, [facility] [id number] [address] Dec, [facility] [place] [facility] [id number] [address] Nov, [facility] [place] [facility] [id number] [address] Nov, [facility] [place] [facility] [address] [facility] [id number] [place] [address] Nov, [facility] [place] [facility] [address] [facility] [id number] [place] [address] Nov, [facility] [place] [facility] [id number] [address] Apr, [facility] [address] [facility] [id number] [place] [address] Mar, [facility] [place] [facility] [address] [id number] [place] [address] Mar, [facility] [place] [facility] [address] [id number] [place] [address] Mar, [facility] [place] [facility] [address] [id number] [place] [address] Mar, [facility] [place] [facility] [address] [id number] [place] [address] Mar, [facility] [place] [facility] [address] [id number] [place] [address] Mar, [facility] [place] [facility] [address] [id number] [place] [address] Mar, [facility] [place] [facility] [address] [id number] [place] [address] Mar, [facility] [place] [facility] [address] [id number] [place] [address] Mar, [facility] [place] [facility] [address] [id number] [place] [address] Mar, [facility] [place] [facility] [address] [id number] [place] [address] February, [facility] [place] [facility] [address] [id number] [place] [address] February, [facility] [place] [facility] [address] [id number] [place] [address] February, [facility] [place] [facility] [address] [id number] [place] [address] February, [facility] [place] [facility] [address] [id number] [place] [address] February, [facility] [place] [facility] [address] [id number] [place] [address] February, [facility] [address] [facility] [id number] [place] [address] February, [facility] [address] [facility] [id number] [address] February, [facility] [address] [facility] [id number] [address] Jan, [facility] [address] [facility] [id number] [address] Jan, IMMUNIZATIONS No Known Immunizations SOCIAL HISTORY Never Assessed REASON FOR VISIT Lab (walk-in) PLAN OF CARE Activity Details Pending Test INR (IN HOUSE) VITAL SIGNS MEDICATIONS Unknown Medications RESULTS No Results PROCEDURES Procedure Date Ordered Result Body Site PROTHROMBIN TIME Aug 29, 2018 INSTRUCTIONS MEDICATIONS ADMINISTERED No Known Medications MEDICAL (GENERAL) HISTORY Type Description Date Medical History 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
--- OUTSIDE RECORDS SUMMARY | 2019-05-09 16:02 | XMS REPORT ---
Author Author AMANDA TY Organization 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 [place] [address] [place] [id number] [place] [address] Apr, Anxiety F41.9 [place] [address] [address] Mar, Anxiety F41.9 ; Acute bilateral low back pain without sciatica M54.5 ; Generalized weakness R53.1 ; Frequent falls R29.6 and 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 [place] [address] [place] [id number] [place] [address] Mar, Anxiety F41.9 [place] [address] [address] Mar, Medicare annual wellness visit, initial Z00.00 ; Primary hypercoagulable state D68.59 ; Anxiety F41.9 ; 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 ; Neuropathy G62.9 ; Hyperlipidemia, unspecified E78.5 ; Cardiomegaly I51.7 ; senior care current use of anticoagulant therapy Z79.01 and Insomnia G47.00 [place] [address] [place] [id number] [place] [address] Mar, 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 [address] [place] [id number] [address] February, Anxiety F41.9 [facility] [address] [address] Jan, Anxiety F41.9 [facility] [address] [address] Jan, [facility] [address] [address] Dec, Anxiety F41.9 [facility] [address] [place] [address] Dec, 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 [address] [place] [id number] [address] Nov, [place] [address] [id number] [id number] Nov, [facility] [address] [address] Oct, [facility] [address] [place] [address] [id number] [address] Sep, 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 [place] [address] [place] [id number] [place] [address] Aug, [place] [address] [place] [id number] [place] [address] Aug, 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 [place] [address] [place] [id number] [place] [address] Jul, [place] [address] [place] [id number] [place] [address] Jun, [place] [address] [place] [id number] [place] [address] Jun, [place] [address] [place] [id number] [place] [address] May, [place] [address] [place] [id number] [place] [address] May, Sprain of ligaments of cervical spine, subsequent encounter S13.4XXD [place] [address] [place] [id number] [place] [address] Apr, Medicare welcome exam Z00.00 ; Medicare annual wellness visit, initial Z00.00 ; Medicare annual wellness visit, subsequent Z00.00 and Vision changes H53.9 [place] [address] [place] [id number] [place] [address] Apr, Anxiety F41.9 [place] [address] [place] [address] Mar, History of CVA (cerebrovascular accident) Z86.73 ; Cardiomegaly I51.7 ; senior care current use of anticoagulant therapy Z79.01 ; Hyperlipidemia, unspecified E78.5 ; Insomnia G47.00 ; BPH (benign prostatic hyperplasia) N40.0 ; Neuropathy G62.9 ; Anxiety F41.9 and Other male erectile dysfunction N52.8 [place] [address] [address] 14 Mar, 2017 [facility] [address] [address] February, [facility] [address] [address] Jan, [facility] [address] [place] [address] Dec, [facility] [address] [place] [address] Nov, [facility] [address] [place] [id number] [place] [address] Oct, [facility] [address] [place] [id number] [place] [address] Oct, [facility] [address] [place] [id number] [place] [address] Oct, [facility] [address] [place] [address] Oct, [facility] [address] [place] [address] Oct, senior care current use of anticoagulant therapy Z79.01 and Hyperlipidemia, unspecified E78.5 [place] [address] [place] [address] Aug, senior care current use of anticoagulant therapy Z79.01 ; Cardiomegaly I51.7 ; Insomnia G47.00 ; Neuropathy G62.9 ; Hyperlipidemia, unspecified E78.5 and Anxiety F41.9 [facility] [address] [address] Aug, 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 ; senior care current use of anticoagulant therapy Z79.01 ; Hyperlipidemia, unspecified E78.5 ; Cardiomegaly I51.7 ; Insomnia G47.00 and BPH (benign prostatic hyperplasia) N40.0 [place] [id number] [place] [address] Dec, [place] [id number] [place] [address] Nov, 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 ; 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 ; URI (upper respiratory infection) J06.9 and Insomnia G47.00 [facility] [address] [id number] [place] [address] Oct, [address] [place] [address] Oct, senior care current use of anticoagulant therapy Z79.01 [address] [place] [address] Oct, Environmental allergies Z91.09 and Primary hypercoagulable state D68.59 [place] [id number] [place] [address] Sep, Hyperlipidemia, unspecified E78.5 and 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 [place] [id number] [place] [address] Sep, Dyslipidemia 272.4 and senior care current use of anticoagulant therapy Z79.01 [place] [address] [address] Sep, Primary hypercoagulable state D68.59 [place] [address] [place] [id number] [place] [address] Sep, [place] [address] [place] [id number] [place] [address] Aug, Whiplash injury S13.4XXA [place] [address] [place] [id number] [place] [address] Jul, 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 [place] [address] [place] [id number] [place] [address] Jul, Sprain of ligaments of cervical spine, subsequent encounter S13.4XXD ; Insomnia, unspecified G47.00 ; Hyperlipidemia, unspecified E78.5 and 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 [place] [address] [address] Jul, [place] [address] [place] [id number] [place] [address] Jun, [place] [address] [place] [address] Apr, Dyslipidemia 272.4 [place] [address] [place] [id number] [place] [address] Apr, Primary hypercoagulable state 289.81 [place] [address] [place] [address] Apr, Primary hypercoagulable state 289.81 [place] [address] [address] Apr, Primary hypercoagulable state 289.81 [place] [address] [place] [id number] [place] [address] 14 Jan, 2015 [facility] [place] [facility] [address] [id number] [place] [address] 13 Jan, 2015 [facility] [place] [facility] [address] [id number] [place] [address] Dec, [facility] [place] [facility] [address] [facility] [id number] [place] [address] Dec, [facility] [place] [facility] [address] [id number] [place] [address] Dec, [facility] [place] [facility] [address] [id number] [place] [address] Dec, [facility] [place] [facility] [address] [facility] [id number] [place] [address] Nov, 2014 [facility] [place] [facility] [address] [facility] [id number] [place] [address] Nov, 2014 [facility] [place] [facility] [address] [facility] [id number] [place] [address] Nov, 2014 [facility] [place] [facility] [address] [facility] [id number] [place] [address] Nov, 2014 [facility] [place] [facility] [address] [facility] [id number] [place] [address] Apr, [facility] [place] [facility] [address] [facility] [id number] [address] 18 Mar, 2014 [facility] [place] [facility] [address] [id number] [address] 18 Mar, 2014 [facility] [place] [facility] [address] [id number] [place] [address] 16 Mar, 2014 [facility] [place] [facility] [address] [facility] [id number] [place] [address] 16 Mar, 2014 [facility] [place] [facility] [address] [facility] [id number] [place] [address] 12 Mar, 2014 [facility] [place] [facility] [address] [id number] [place] [address] Mar, [facility] [address] [facility] [id number] [address] Mar, [facility] [address] [facility] [id number] [place] [address] Mar, [facility] [address] [facility] [id number] [address] Mar, [facility] [address] [facility] [id number] [place] [address] Mar, [facility] [address] [facility] [id number] [place] [address] February, [facility] [address] [facility] [id number] [address] February, [facility] [address] [facility] [id number] [place] [address] February, [facility] [address] [facility] [id number] [place] [address] February, [facility] [address] [facility] [id number] [address] February, [facility] [address] [facility] [id number] [address] February, [facility] [address] [id number] [address] February, [facility] [address] [facility] [id number] [place] [address] February, [facility] [address] [facility] [id number] [address] Jan, [facility] [address] [facility] [id number] [address] Jan, IMMUNIZATIONS No Known Immunizations SOCIAL HISTORY Never Assessed REASON FOR VISIT Controlled Med Refill 10/11/18 PLAN OF CARE VITAL SIGNS MEDICATIONS Medication Instructions Dosage Frequency Start Date End Date Duration Status Valium 5 mg Orally Twice a day 1 tablet as needed 12h 28 Active RESULTS No Results PROCEDURES No Known procedures INSTRUCTIONS MEDICATIONS ADMINISTERED No Known Medications MEDICAL (GENERAL) HISTORY Type Description Date Medical History Hx of DVT Medical History 2001 G[place] Syndrome Medical History Closed fracture of one or more phalanges of foot Surgical History Right calf secondary to compartment syndrome 2005 Hospitalization History DVT- NO VENA CAVA FILTER 89,91,2000
--- OUTSIDE RECORDS SUMMARY | 2019-05-09 16:02 | XMS REPORT ---
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 Active 693546589 Problem correction current use of anticoagulant therapy Z79.01 Active 747923720 Problem Frequent falls R29.6 Active 938893910 Problem 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 Active 2440091 Problem History of CVA (cerebrovascular accident) Z86.73 Active 948567451 Problem Anxiety F41.9 Active 50921956 Problem Other male erectile dysfunction N52.8 Active 921068209 Problem Neuropathy G62.9 Active 040356176 ALLERGIES No Known Allergies ENCOUNTERS Encounter Location Date Diagnosis [facility] [id number] [place] [address] Jul, Hyperlipidemia, unspecified E78.5 ; Anxiety F41.9 and correction current use of anticoagulant therapy Z79.01 [facility] [id number] [place] [address] Jul, Anxiety F41.9 [facility] [id number] [place] [address] Jun, Anxiety F41.9 [place] [id number] [place] [address] Jun, correction current use of anticoagulant therapy Z79.01 [place] [id number] [address] May, Anxiety F41.9 [place] [id number] [place] [address] May, correction current use of anticoagulant therapy Z79.01 [place] [id number] [place] [address] Apr, Anxiety F41.9 [place] [id number] [place] [address] Mar, Anxiety F41.9 ; Acute bilateral low back pain without sciatica M54.5 ; Generalized weakness R53.1 ; Frequent falls R29.6 and 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 [place] [id number] [place] [address] Mar, Anxiety F41.9 [place] [id number] [place] [address] 13 Mar, 2018 Medicare annual wellness visit, initial Z00.00 ; Primary hypercoagulable state D68.59 ; Anxiety F41.9 ; 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 ; Neuropathy G62.9 ; Hyperlipidemia, unspecified E78.5 ; Cardiomegaly I51.7 ; 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 and Insomnia G47.00 [place] [id number] [place] [address] Mar, 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 [place] [id number] [place] [address] Mar, 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 [place] [id number] [place] [address] February, correction current use of anticoagulant therapy Z79.01 and History of Guillain-[place]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 [facility] [id number] [address] February, [facility] [id number] [address] February, Anxiety F41.9 [facility] [id number] [address] Jan, Anxiety F41.9 [facility] [id number] [place] [address] Jan, [facility] [id number] [place] [address] Dec, Anxiety F41.9 [facility] [id number] [place] [address] Dec, [facility] [id number] [place] [address] Dec, History of Guillain-[place]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 ; Cardiomegaly I51.7 ; 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 and 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 [facility] [address] [address] Dec, History of Guillain-[place]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 ; Cardiomegaly I51.7 ; 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 and 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 [facility] [id number] [address] Nov, [facility] [id number] [place] [id number] Nov, [facility] [address] [address] Oct, [facility] [id number] [address] Sep, [place] [id number] [address] Sep, Sprain of ligaments of cervical spine, subsequent encounter S13.4XXD and correction current use of anticoagulant therapy Z79.01 [place] [id number] [address] 30 Aug, 2017 [place] [address] [address] Aug, 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 [place] [address] [address] Jul, [place] [id number] [address] Jun, [place] [id number] [address] Jun, [place] [id number] [address] May, [place] [address] [address] May, Sprain of ligaments of cervical spine, subsequent encounter S13.4XXD [place] [id number] [address] Apr, Medicare welcome exam Z00.00 ; Medicare annual wellness visit, initial Z00.00 ; Medicare annual wellness visit, subsequent Z00.00 and Vision changes H53.9 [place] [id number] [address] Apr, Anxiety F41.9 [place] [address] [address] 30 Mar, 2017 History of CVA (cerebrovascular accident) Z86.73 ; Cardiomegaly I51.7 ; 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 ; Hyperlipidemia, unspecified E78.5 ; Insomnia G47.00 ; BPH (benign prostatic hyperplasia) N40.0 ; Neuropathy G62.9 ; Anxiety F41.9 and Other male erectile dysfunction N52.8 [facility] [id number] [place] [address] 14 Mar, 2017 [facility] [id number] [place] [address] February, [facility] [id number] [place] [address] Jan, [facility] [id number] [place] [address] Dec, [facility] [id number] [place] [address] Nov, [facility] [id number] [place] [address] Oct, [facility] [id number] [place] [address] Oct, [facility] [id number] [place] [address] Oct, [facility] [id number] [place] [address] Oct, [facility] [id number] [place] [address] Oct, 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 and Hyperlipidemia, unspecified E78.5 [place] [id number] [place] [address] Aug, correction current use of anticoagulant therapy Z79.01 ; Cardiomegaly I51.7 ; Insomnia G47.00 ; Neuropathy G62.9 ; Hyperlipidemia, unspecified E78.5 and Anxiety F41.9 [facility] [id number] [place] [address] Aug, [facility] [id number] [place] [address] Aug, Impacted cerumen of right ear H61.21 and Neuropathy G62.9 [facility] [address] [place] [id number] [place] [address] Aug, Otalgia of right ear H92.01 and Impacted cerumen of right ear H61.21 [facility] [address] [place] [id number] [place] [address] Jan, Rhinitis, allergic J30.9 [place] [id number] [place] [address] 07 Jan, 2016 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 ; correction current use of anticoagulant therapy Z79.01 ; Hyperlipidemia, unspecified E78.5 ; Cardiomegaly I51.7 ; Insomnia G47.00 and BPH (benign prostatic hyperplasia) N40.0 [place] [id number] [place] [address] Dec, [place] [id number] [place] [address] Nov, correction current use of anticoagulant therapy Z79.01 ; 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 ; URI (upper respiratory infection) J06.9 and Insomnia G47.00 [facility] [address] [id number] [place] [address] Oct, [place] [id number] [place] [address] Oct, correction current use of anticoagulant therapy Z79.01 [place] [id number] [place] [address] Oct, Environmental allergies Z91.09 and Primary hypercoagulable state D68.59 [id number] [place] [address] Sep, Hyperlipidemia, unspecified E78.5 and correction current use of anticoagulant therapy Z79.01 [place] [address] [address] Sep, Dyslipidemia 272.4 and correction current use of anticoagulant therapy Z79.01 [place] [id number] [place] [address] Sep, Primary hypercoagulable state D68.59 [place] [id number] [place] [address] Sep, [place] [id number] [place] [address] Aug, Whiplash injury S13.4XXA [place] [id number] [place] [address] Jul, 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 [place] [id number] [place] [address] Jul, Sprain of ligaments of cervical spine, subsequent encounter S13.4XXD ; Insomnia, unspecified G47.00 ; Hyperlipidemia, unspecified E78.5 and correction current use of anticoagulant therapy Z79.01 [place] [id number] [place] [address] Jul, [place] [address] [address] Jun, [place] [id number] [place] [address] Apr, Dyslipidemia 272.4 [place] [id number] [place] [address] Apr, Primary hypercoagulable state 289.81 [place] [id number] [place] [address] Apr, Primary hypercoagulable state 289.81 [place] [id number] [place] [address] 01 Nikhil, 2015 Primary hypercoagulable state 289.81 [facility] [place] [facility] [address] [id number] [place] [address] 14 Jan, 2015 [facility] [place] [facility] [address] [id number] [place] [address] 13 Jan, 2015 [facility] [place] [facility] [address] [id number] [place] [address] Dec, [facility] [place] [facility] [address] [id number] [place] [address] Dec, [facility] [place] [facility] [address] [id number] [place] [address] Dec, [facility] [place] [facility] [address] [id number] [place] [address] Dec, [facility] [place] [facility] [address] [facility] [id number] [place] [address] Nov, [facility] [place] [facility] [address] [id number] [place] [address] Nov, [facility] [place] [facility] [address] [facility] [id number] [place] [address] Nov, [facility] [place] [facility] [address] [facility] [id number] [place] [address] Nov, [facility] [place] [facility] [address] [facility] [id number] [place] [address] Apr, [facility] [place] [facility] [address] [id number] [address] Mar, [facility] [place] [facility] [address] [id number] [place] [address] Mar, [facility] [place] [facility] [address] [facility] [id number] [place] [address] 16 Mar, 2014 [facility] [place] [facility] [address] [facility] [id number] [place] [address] Mar, [facility] [place] [facility] [address] [facility] [id number] [place] [address] Mar, [facility] [address] [id number] [place] [address] Mar, [facility] [address] [id number] [place] [address] Mar, [facility] [address] [id number] [place] [address] Mar, [facility] [address] [id number] [place] [address] Mar, [facility] [address] [id number] [place] [address] Mar, [facility] [address] [id number] [place] [address] February, [facility] [address] [id number] [place] [address] February, [facility] [address] [id number] [place] [address] February, [facility] [address] [id number] [place] [address] February, [facility] [address] [id number] [place] [address] February, [facility] [address] [id number] [place] [address] February, [facility] [address] [id number] [place] [address] February, [facility] [address] [id number] [place] [address] February, [facility] [address] [id number] [place] [address] Jan, [facility] [address] [id number] [place] [address] Jan, IMMUNIZATIONS No Known Immunizations SOCIAL HISTORY Never Assessed REASON FOR VISIT Med f/u Holger caldwell PLAN OF CARE VITAL SIGNS Height 68 in 2018-08-06 Weight 197.7 lbs 2018-08-06 Temperature 98.4 degrees Fahrenheit 2018-08-06 Heart Rate 87 bpm 2018-08-06 Respiratory Rate 18 2018-08-06 BMI 30.06 kg/m2 2018-08-06 Blood pressure systolic 124 mmHg 2018-08-06 Blood pressure diastolic 82 mmHg 2018-08-06 MEDICATIONS Medication Instructions Dosage Frequency Start Date End Date Duration Status Atorvastatin Calcium 20 mg Orally Once a day 1 tablet 24h 15 Dec, 2017 30 day(s) Active Cyclobenzaprine HCl 10 mg 1 tablet as needed 12h 30 Active Warfarin Sodium 7.5 MG Orally Once a day 1 tablet 24h 30 Active Trazodone HCl 100 mg 1 tablet at bedtime 24h 30 Active Seroquel 50 mg Orally Once a day 1 tablet 24h 90 days Active Valium 5 mg Orally Twice a day 1 tablet as needed 12h 28 Active RESULTS No Results PROCEDURES Procedure Date Ordered Result Body Site [facility] VISIT ESTABLISHED PATIENT Aug 06, 2018 INSTRUCTIONS MEDICATIONS ADMINISTERED No Known Medications MEDICAL (GENERAL) HISTORY Type Description Date Medical History Hx of DVT Medical History 2001 [place] Syndrome Medical History Closed fracture of one or more phalanges of foot Surgical History Right calf secondary to compartment syndrome 2004 Hospitalization History DVT- NO VENA CAVA FILTER 89,91,2000
--- OUTSIDE RECORDS SUMMARY | 2019-05-09 16:02 | XMS REPORT ---
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 Active 981232906 Problem long-term current use of anticoagulant therapy Z79.01 Active 816772957 Problem Frequent falls R29.6 Active 419418656 Problem 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 Active 6000315 Problem History of CVA (cerebrovascular accident) Z86.73 Active 378628156 Problem Anxiety F41.9 Active 16261741 Problem Other male erectile dysfunction N52.8 Active 758268074 Problem Neuropathy G62.9 Active [id number] ALLERGIES No Information ENCOUNTERS Encounter Location Date Diagnosis [facility] [id number] [place] [address] Aug, Anxiety F41.9 [facility] [address] [place] [id number] [place] [address] Aug, [place] [address] [address] [id number] [place] [address] Jul, Hyperlipidemia, unspecified E78.5 ; Anxiety F41.9 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 [place] [id number] [place] [address] Jul, Anxiety F41.9 [place] [id number] [place] [address] 12 Jun, 2018 Anxiety F41.9 [place] [address] [place] [id number] [place] [address] 07 Jun, 2018 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6 and 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 [place] [id number] [place] [address] Mar, Anxiety F41.9 [place] [address] [id number] [place] [address] 13 Mar, 2018 Medicare annual wellness visit, initial Z00.00 ; Primary hypercoagulable state D68.59 ; Anxiety F41.9 ; 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 ; Neuropathy G62.9 ; Hyperlipidemia, unspecified E78.5 ; Cardiomegaly I51.7 ; long-term current use of anticoagulant therapy Z79.01 and Insomnia G47.00 [place] [address] [id number] [place] [address] Mar, long-term current use of anticoagulant therapy Z79.01 [place] [address] [place] [id number] [place] [address] Mar, 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 [facility] [address] [address] February, 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 and 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 [place] [address] [address] February, [place] [address] [id number] [place] [address] February, Anxiety F41.9 [place] [id number] [place] [address] Jan, Anxiety F41.9 [place] [id number] [place] [address] Jan, [place] [address] [id number] [place] [address] Dec, Anxiety F41.9 [place] [id number] [place] [address] Dec, [place] [address] [place] [id number] [place] [address] Dec, 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 ; Cardiomegaly I51.7 ; 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 and 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 [place] [address] [address] Dec, 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 ; Cardiomegaly I51.7 ; 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 and 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 [place] [address] [address] Nov, [facility] [id number] [id number] Nov, [facility] [address] [address] Oct, [facility] [address] [address] Sep, [facility] [address] [address] Sep, Sprain of ligaments of cervical spine, subsequent encounter S13.4XXD and long-term current use of anticoagulant therapy Z79.01 [facility] [address] [address] 30 Aug, 2017 [place] [address] [place] [id number] [place] [address] 07 Aug, 2017 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 [facility] [address] [id number] [place] [address] Jul, [facility] [address] [address] Jun, [facility] [id number] [place] [address] Jun, [facility] [id number] [place] [address] May, [facility] [address] [address] May, Sprain of ligaments of cervical spine, subsequent encounter S13.4XXD [facility] [address] [address] Apr, Medicare welcome exam Z00.00 ; Medicare annual wellness visit, initial Z00.00 ; Medicare annual wellness visit, subsequent Z00.00 and Vision changes H53.9 [facility] [address] [address] Apr, Anxiety F41.9 [facility] [address] [place] [address] Mar, History of CVA (cerebrovascular accident) Z86.73 ; Cardiomegaly I51.7 ; 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 ; Hyperlipidemia, unspecified E78.5 ; Insomnia G47.00 ; BPH (benign prostatic hyperplasia) N40.0 ; Neuropathy G62.9 ; Anxiety F41.9 and Other male erectile dysfunction N52.8 [place] [address] [place] [id number] [place] [address] Mar, [place] [address] [place] [id number] [place] [address] February, [place] [address] [address] [id number] [place] [address] Jan, [place] [address] [place] [id number] [place] [address] Dec, [place] [address] [address] [id number] [place] [address] Nov, [place] [address] [id number] [place] [address] Oct, [place] [address] [id number] [place] [address] Oct, [place] [address] [place] [address] Oct, [place] [address] [id number] [place] [address] Oct, [place] [address] [id number] [place] [address] Oct, long-term current use of anticoagulant therapy Z79.01 and Hyperlipidemia, unspecified E78.5 [place] [address] [place] [address] [id number] [place] [address] Aug, long-term current use of anticoagulant therapy Z79.01 ; Cardiomegaly I51.7 ; Insomnia G47.00 ; Neuropathy G62.9 ; Hyperlipidemia, unspecified E78.5 and Anxiety F41.9 [place] [address] [place] [address] Aug, [place] [id number] [place] [address] Aug, Impacted cerumen of right ear H61.21 and Neuropathy G62.9 [facility] [place] [id number] [place] [address] Aug, Otalgia of right ear H92.01 and Impacted cerumen of right ear H61.21 [facility] [place] [id number] [place] [address] Jan, Rhinitis, allergic J30.9 [place] [id number] [place] [address] Jan, 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 ; long-term current use of anticoagulant therapy Z79.01 ; Hyperlipidemia, unspecified E78.5 ; Cardiomegaly I51.7 ; Insomnia G47.00 and BPH (benign prostatic hyperplasia) N40.0 [place] [id number] [place] [address] Dec, [place] [id number] [place] [address] Nov, 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 ; 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 ; URI (upper respiratory infection) J06.9 and Insomnia G47.00 [facility] [address] [id number] [place] [address] Oct, [address] [place] [address] Oct, long-term current use of anticoagulant therapy Z79.01 [address] [place] [address] Oct, Environmental allergies Z91.09 and Primary hypercoagulable state D68.59 [place] [address] [place] [address] Sep, Hyperlipidemia, unspecified E78.5 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 [place] [address] [place] [address] Sep, Dyslipidemia 272.4 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 [place] [address] [place] [id number] [place] [address] Sep, Primary hypercoagulable state D68.59 [place] [address] [place] [id number] [place] [address] Sep, [place] [address] [place] [id number] [place] [address] Aug, Whiplash injury S13.4XXA [place] [address] [place] [address] [id number] [place] [address] Jul, 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 [place] [address] [place] [address] Jul, Sprain of ligaments of cervical spine, subsequent encounter S13.4XXD ; Insomnia, unspecified G47.00 ; Hyperlipidemia, unspecified E78.5 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 [place] [address] [place] [address] Jul, [place] [address] [address] Jun, [place] [address] [place] [id number] [place] [address] Apr, Dyslipidemia 272.4 [place] [address] [place] [address] Apr, Primary hypercoagulable state 289.81 [place] [address] [place] [address] Apr, Primary hypercoagulable state 289.81 [facility] [address] [facility] [id number] [place] [address] Apr, Primary hypercoagulable state 289.81 [facility] [address] [facility] [id number] [place] [address] Jan, [facility] [address] [facility] [id number] [place] [address] Jan, [facility] [address] [facility] [id number] [place] [address] Dec, [facility] [address] [facility] [id number] [place] [address] Dec, [facility] [address] [place] [id number] [place] [address] Dec, [facility] [address] [facility] [id number] [place] [address] Dec, [facility] [address] [place] [id number] [place] [address] Nov, [facility] [address] [facility] [id number] [place] [address] Nov, [facility] [address] [place] [address] [id number] [address] Nov, [facility] [address] [facility] [id number] [place] [address] Nov, [facility] [address] [facility] [id number] [place] [address] Apr, [facility] [place] [facility] [address] [facility] [id number] [place] [address] Mar, [facility] [place] [facility] [address] [facility] [id number] [place] [address] Mar, [facility] [place] [facility] [address] [id number] [place] [address] Mar, [facility] [place] [facility] [address] [id number] [place] [address] Mar, [facility] [place] [facility] [address] [id number] [place] [address] Mar, [facility] [place] [facility] [address] [id number] [place] [address] Mar, [facility] [place] [facility] [address] [id number] [place] [address] Mar, [facility] [place] [facility] [address] [id number] [place] [address] Mar, [facility] [place] [facility] [address] [id number] [place] [address] Mar, [facility] [place] [facility] [address] [id number] [place] [address] Mar, [facility] [place] [facility] [address] [id number] [place] [address] February, [facility] [place] [facility] [address] [id number] [place] [address] February, [facility] [place] [facility] [address] [id number] [place] [address] February, [facility] [place] [facility] [address] [id number] [place] [address] February, [facility] [place] [facility] [address] [id number] [place] [address] February, [facility] [place] [facility] [address] [id number] [place] [address] February, [facility] [place] [facility] [address] [id number] [place] [address] February, [facility] [place] [facility] [address] [id number] [place] [address] February, [facility] [address] [facility] [id number] [place] [address] Jan, [facility] [address] [facility] [id number] [place] [address] Jan, IMMUNIZATIONS No Known Immunizations SOCIAL HISTORY [...] Hx of DVT Medical History 2001 G[place] Syndrome Medical History Closed fracture of one or more phalanges of foot Surgical History Right calf secondary to compartment syndrome 2005 Hospitalization History DVT- NO VENA CAVA FILTER 89,91,2000
--- OUTSIDE RECORDS SUMMARY | 2019-05-09 16:03 | XMS REPORT ---
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 Active 397711684 Problem 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.01 Active 030349117 Problem Frequent falls R29.6 Active 478651614 Problem 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 Active 8297450 Problem History of CVA (cerebrovascular accident) Z86.73 Active 270854833 Problem Anxiety F41.9 Active 99392119 Problem Other male erectile dysfunction N52.8 Active 424995404 Problem Neuropathy G62.9 Active 007032924 ALLERGIES No Information ENCOUNTERS Encounter Location Date Diagnosis [place] [id number] [place] [address] 12 Jun, 2018 Anxiety F41.9 [place] [address] [place] [id number] [place] [address] 07 Jun, 2018 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.01 [place] [address] [place] [id number] [place] [address] 15 May, 2018 Anxiety F41.9 [place] [id number] [place] [address] 10 May, 2018 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.01 [place] [address] [place] [id number] [place] [address] Apr, Anxiety F41.9 [place] [address] [address] Mar, Anxiety F41.9 ; Acute bilateral low back pain without sciatica M54.5 ; Generalized weakness R53.1 ; Frequent falls R29.6 and 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 [place] [address] [address] Mar, Anxiety F41.9 [place] [address] [address] Mar, Medicare annual wellness visit, initial Z00.00 ; Primary hypercoagulable state D68.59 ; Anxiety F41.9 ; 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 ; Neuropathy G62.9 ; Hyperlipidemia, unspecified E78.5 ; Cardiomegaly I51.7 ; 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 and Insomnia G47.00 [place] [address] [place] [id number] [place] [address] Mar, 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 [place] [address] [place] [id number] [place] [address] Mar, 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.01 [place] [address] [place] [id number] [place] [address] February, 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 and History of Guillain-[place]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 [place] [address] [address] February, [place] [address] [address] February, Anxiety F41.9 [place] [address] [address] Jan, Anxiety F41.9 [place] [address] [place] [address] Jan, [place] [id number] [place] [address] Dec, Anxiety F41.9 [place] [id number] [place] [address] Dec, [place] [address] [place] [id number] [place] [address] Dec, History of Guillain-[place]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 ; Cardiomegaly I51.7 ; 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 and 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 [place] [address] [place] [address] Dec, History of Guillain-[place]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 ; Cardiomegaly I51.7 ; 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 and 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 [place] [address] [place] [address] Nov, [place] [id number] [id number] Nov, [place] [id number] [place] [address] Oct, [place] [id number] [place] [address] Sep, [place] [address] [place] [id number] [place] [address] Sep, Sprain of ligaments of cervical spine, subsequent encounter S13.4XXD and 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.01 [place] [address] [place] [address] Aug, [place] [address] [address] Aug, 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 [place] [address] [place] [id number] [place] [address] Jul, [place] [address] [place] [address] Jun, [place] [address] [place] [id number] [place] [address] Jun, [place] [address] [place] [id number] [place] [address] May, [place] [address] [place] [id number] [place] [address] May, Sprain of ligaments of cervical spine, subsequent encounter S13.4XXD [place] [address] [place] [id number] [place] [address] Apr, Medicare welcome exam Z00.00 ; Medicare annual wellness visit, initial Z00.00 ; Medicare annual wellness visit, subsequent Z00.00 and Vision changes H53.9 [place] [address] [place] [id number] [place] [address] Apr, Anxiety F41.9 [place] [address] [place] [address] Mar, History of CVA (cerebrovascular accident) Z86.73 ; Cardiomegaly I51.7 ; 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.01 ; Hyperlipidemia, unspecified E78.5 ; Insomnia G47.00 ; BPH (benign prostatic hyperplasia) N40.0 ; Neuropathy G62.9 ; Anxiety F41.9 and Other male erectile dysfunction N52.8 [place] [address] [place] [address] Mar, [place] [address] [place] [address] February, [place] [address] [place] [id number] [address] Jan, [facility] [id number] [place] [address] Dec, [facility] [address] [place] [id number] [place] [address] Nov, [facility] [address] [place] [id number] [place] [address] Oct, [facility] [address] [place] [id number] [place] [address] Oct, [facility] [address] [place] [id number] [place] [address] Oct, [facility] [address] [place] [id number] [place] [address] Oct, [facility] [address] [place] [id number] [place] [address] Oct, 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 and Hyperlipidemia, unspecified E78.5 [place] [address] [place] [id number] [place] [address] Aug, 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.01 ; Cardiomegaly I51.7 ; Insomnia G47.00 ; Neuropathy G62.9 ; Hyperlipidemia, unspecified E78.5 and Anxiety F41.9 [place] [address] [address] Aug, [place] [address] [place] [id number] [place] [address] 17 Aug, 2016 Impacted cerumen of right ear H61.21 and Neuropathy G62.9 [facility] [address] [place] [address] 14 Aug, 2016 Otalgia of right ear H92.01 and Impacted cerumen of right ear H61.21 [facility] [id number] [place] [address] Jan, Rhinitis, allergic J30.9 [place] [id number] [place] [address] Jan, 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 ; 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.01 ; Hyperlipidemia, unspecified E78.5 ; Cardiomegaly I51.7 ; Insomnia G47.00 and BPH (benign prostatic hyperplasia) N40.0 [place] [address] [place] [address] Dec, [place] [id number] [place] [address] Nov, 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.01 ; 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 ; URI (upper respiratory infection) J06.9 and Insomnia G47.00 [facility] [id number] [place] [address] Oct, [address] [place] [address] Oct, 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.01 [address] [place] [address] Oct, Environmental allergies Z91.09 and Primary hypercoagulable state D68.59 [place] [id number] [place] [address] Sep, Hyperlipidemia, unspecified E78.5 and 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.01 [address] [place] [address] Sep, Dyslipidemia 272.4 and 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 [address] [place] [address] Sep, Primary hypercoagulable state D68.59 [place] [address] [address] Sep, [place] [address] [place] [id number] [place] [address] Aug, Whiplash injury S13.4XXA [place] [address] [place] [address] Jul, 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 [place] [address] [place] [id number] [place] [address] Jul, Sprain of ligaments of cervical spine, subsequent encounter S13.4XXD ; Insomnia, unspecified G47.00 ; Hyperlipidemia, unspecified E78.5 and 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.01 [place] [address] [place] [address] Jul, [place] [address] [place] [id number] [place] [address] Jun, [place] [address] [place] [id number] [place] [address] Apr, Dyslipidemia 272.4 [place] [address] [place] [id number] [place] [address] Apr, Primary hypercoagulable state 289.81 [place] [address] [place] [address] Apr, Primary hypercoagulable state 289.81 [place] [id number] [place] [address] Apr, Primary hypercoagulable state 289.81 [place] [address] [place] [id number] [place] [address] Jan, [place] [id number] [place] [address] Jan, [place] [address] [place] [id number] [place] [address] Dec, [facility] [place] [facility] [address] [id number] [place] [address] Dec, 2014 [facility] [place] [facility] [address] [id number] [place] [address] Dec, 2014 [facility] [place] [facility] [address] [id number] [place] [address] Dec, 2014 [facility] [place] [facility] [address] [id number] [place] [address] Nov, 2014 [facility] [place] [facility] [address] [id number] [place] [address] Nov, 2014 [facility] [place] [facility] [address] [id number] [place] [address] Nov, 2014 [facility] [place] [facility] [address] [id number] [place] [address] Nov, 2014 [facility] [place] [facility] [address] [id number] [place] [address] Apr, [facility] [place] [facility] [address] [id number] [place] [address] Mar, [facility] [place] [facility] [address] [id number] [place] [address] Mar, [facility] [place] [facility] [address] [id number] [place] [address] 16 Mar, 2014 [facility] [place] [facility] [address] [id number] [place] [address] 16 Mar, 2014 [facility] [place] [facility] [address] [id number] [place] [address] Mar, [facility] [place] [facility] [address] [id number] [place] [address] Mar, [facility] [place] [facility] [address] [id number] [place] [address] Mar, [facility] [place] [facility] [address] [address] Mar, [facility] [address] [address] Mar, [facility] [address] [address] Mar, [facility] [address] [address] February, [facility] [address] [address] February, [facility] [address] [address] February, [facility] [address] [address] February, [facility] [address] [address] February, [facility] [address] [address] February, [facility] [address] [address] February, [facility] [address] [place] [id number] [address] February, [facility] [id number] [address] Jan, [facility] [address] [place] [address] [id number] [address] Jan, IMMUNIZATIONS No Known Immunizations SOCIAL HISTORY Never Assessed REASON FOR VISIT Controlled Med Refill 06/21/18 PLAN OF CARE VITAL SIGNS MEDICATIONS Medication Instructions Dosage Frequency Start Date End Date Duration Status Valium 5 mg Orally Twice a day 1 tablet as needed 12h 28 Active RESULTS No Results PROCEDURES No Known procedures INSTRUCTIONS MEDICATIONS ADMINISTERED No Known Medications MEDICAL (GENERAL) HISTORY Type Description Date Medical History Hx of DVT Medical History 2001 Gullian [place] Syndrome Medical History Closed fracture of one or more phalanges of foot Surgical History Right calf secondary to compartment syndrome 2005 Hospitalization History DVT- NO VENA CAVA FILTER 89,91,2000
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
--- OUTSIDE RECORDS SUMMARY | 2019-05-09 16:04 | XMS REPORT ---
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 Active 201918513 Problem jail current use of anticoagulant therapy Z79.01 Active 694053276 Problem Frequent falls R29.6 Active 962566244 Problem 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 Active 3267825 Problem History of CVA (cerebrovascular accident) Z86.73 Active 391770361 Problem Anxiety F41.9 Active 26622652 Problem Other male erectile dysfunction N52.8 Active 983412618 Problem Neuropathy G62.9 Active 452719396 ALLERGIES No Known Allergies ENCOUNTERS Encounter Location Date Diagnosis [place] [id number] [place] [address] May, Anxiety F41.9 [place] [address] [place] [id number] [place] [address] May, jail current use of anticoagulant therapy Z79.01 [place] [address] [place] [id number] [place] [address] Apr, Anxiety F41.9 [place] [address] [id number] [place] [address] Mar, Anxiety F41.9 ; Acute bilateral low back pain without sciatica M54.5 ; Generalized weakness R53.1 ; Frequent falls R29.6 and 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 [place] [address] [place] [id number] [place] [address] Mar, Anxiety F41.9 [place] [address] [place] [id number] [place] [address] 13 Mar, 2018 Medicare annual wellness visit, initial Z00.00 ; Primary hypercoagulable state D68.59 ; Anxiety F41.9 ; 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 ; Neuropathy G62.9 ; Hyperlipidemia, unspecified E78.5 ; Cardiomegaly I51.7 ; jail current use of anticoagulant therapy Z79.01 and Insomnia G47.00 [place] [address] [place] [id number] [place] [address] Mar, jail current use of anticoagulant therapy Z79.01 [place] [address] [address] Mar, 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 [place] [address] [address] February, 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 and 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 [place] [address] [place] [id number] [place] [address] February, [place] [address] [place] [id number] [place] [address] February, Anxiety F41.9 [place] [address] [place] [id number] [place] [address] Jan, Anxiety F41.9 [place] [id number] [place] [address] Jan, [place] [address] [place] [id number] [place] [address] Dec, Anxiety F41.9 [place] [address] [address] Dec, [place] [address] [id number] [place] [address] 09 Dec, 2017 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 ; Cardiomegaly I51.7 ; 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 and 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 [place] [address] [id number] [place] [address] Dec, 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 ; Cardiomegaly I51.7 ; 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 and 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 [place] [id number] [place] [address] 21 Nov, 2017 [facility] [id number] [place] [id number] Nov, [place] [id number] [place] [address] Oct, [place] [id number] [place] [address] Sep, [place] [id number] [place] [address] Sep, Sprain of ligaments of cervical spine, subsequent encounter S13.4XXD and jail current use of anticoagulant therapy Z79.01 [place] [id number] [place] [address] Aug, [place] [address] [address] Aug, 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 [place] [address] [place] [id number] [place] [address] Jul, [place] [address] [place] [address] Jun, [facility] [address] [address] Jun, [facility] [address] [address] May, [place] [address] [address] May, Sprain of ligaments of cervical spine, subsequent encounter S13.4XXD [place] [address] [address] Apr, Medicare welcome exam Z00.00 ; Medicare annual wellness visit, initial Z00.00 ; Medicare annual wellness visit, subsequent Z00.00 and Vision changes H53.9 [place] [address] [address] Apr, Anxiety F41.9 [place] [address] [place] [id number] [place] [address] Mar, History of CVA (cerebrovascular accident) Z86.73 ; Cardiomegaly I51.7 ; jail current use of anticoagulant therapy Z79.01 ; Hyperlipidemia, unspecified E78.5 ; Insomnia G47.00 ; BPH (benign prostatic hyperplasia) N40.0 ; Neuropathy G62.9 ; Anxiety F41.9 and Other male erectile dysfunction N52.8 [place] [address] [address] Mar, [place] [id number] [place] [address] February, [place] [address] [place] [id number] [place] [address] Jan, [place] [address] [address] Dec, [place] [id number] [place] [address] Nov, [place] [id number] [place] [address] Oct, [place] [address] [place] [id number] [place] [address] Oct, [place] [address] [id number] [place] [address] Oct, [place] [address] [address] Oct, [place] [address] [place] [id number] [place] [address] Oct, Hyperlipidemia, unspecified E78.5 and 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 [place] [address] [place] [id number] [place] [address] Aug, 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 ; Cardiomegaly I51.7 ; Insomnia G47.00 ; Neuropathy G62.9 ; Hyperlipidemia, unspecified E78.5 and Anxiety F41.9 [place] [id number] [place] [address] Aug, [place] [id number] [place] [address] Aug, Impacted cerumen of right ear H61.21 and Neuropathy G62.9 [facility] [address] [place] [id number] [place] [address] 14 Aug, 2016 Otalgia of right ear H92.01 and Impacted cerumen of right ear H61.21 [facility] [place] [id number] [place] [address] Jan, Rhinitis, allergic J30.9 [address] [place] [address] 07 Jan, 2016 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 ; 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 ; Hyperlipidemia, unspecified E78.5 ; Cardiomegaly I51.7 ; Insomnia G47.00 and BPH (benign prostatic hyperplasia) N40.0 [place] [address] [place] [address] Dec, [place] [address] [id number] [place] [address] Nov, jail current use of anticoagulant therapy Z79.01 ; 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 ; URI (upper respiratory infection) J06.9 and Insomnia G47.00 [facility] [address] [id number] [place] [address] Oct, [place] [id number] [place] [address] Oct, 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 [place] [id number] [place] [address] Oct, Environmental allergies Z91.09 and Primary hypercoagulable state D68.59 [place] [id number] [place] [address] Sep, Hyperlipidemia, unspecified E78.5 and jail current use of anticoagulant therapy Z79.01 [place] [id number] [place] [address] Sep, Dyslipidemia 272.4 and jail current use of anticoagulant therapy Z79.01 [place] [address] [place] [id number] [place] [address] Sep, Primary hypercoagulable state D68.59 [place] [address] [address] Sep, [place] [id number] [place] [address] Aug, Whiplash injury S13.4XXA [address] [place] [address] Jul, 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 [facility] [address] [place] [address] Jul, Sprain of ligaments of cervical spine, subsequent encounter S13.4XXD ; Insomnia, unspecified G47.00 ; Hyperlipidemia, unspecified E78.5 and 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 [facility] [address] [place] [address] Jul, [facility] [id number] [place] [address] Jun, [place] [address] [place] [address] [id number] [place] [address] Apr, Dyslipidemia 272.4 [place] [address] [place] [address] Apr, Primary hypercoagulable state 289.81 [place] [address] [address] Apr, Primary hypercoagulable state 289.81 [place] [address] [address] Apr, Primary hypercoagulable state 289.81 [place] [address] [address] 14 Jan, 2015 [facility] [id number] [address] Jan, [facility] [address] [address] Dec, [facility] [address] [address] Dec, [facility] [address] [address] Dec, [facility] [id number] [place] [address] 06 Dec, 2014 [facility] [place] [facility] [address] [id number] [place] [address] Nov, 2014 [facility] [place] [facility] [address] [id number] [place] [address] 19 Nov, 2014 [facility] [place] [facility] [address] [id number] [place] [address] Nov, 2014 [facility] [place] [facility] [address] [id number] [place] [address] Nov, 2014 [facility] [place] [facility] [address] [id number] [place] [address] 15 Apr, 2014 [facility] [place] [facility] [address] [id number] [place] [address] 18 Mar, 2014 [facility] [place] [facility] [address] [id number] [place] [address] 18 Mar, 2014 [facility] [place] [facility] [address] [id number] [place] [address] 16 Mar, 2014 [facility] [place] [facility] [address] [id number] [place] [address] Mar, [facility] [place] [facility] [address] [facility] [id number] [place] [address] Mar, [facility] [place] [facility] [address] [id number] [place] [address] Mar, [facility] [place] [facility] [address] [id number] [place] [address] Mar, [facility] [place] [facility] [address] [id number] [place] [address] Mar, [facility] [place] [facility] [address] [id number] [place] [address] 04 Mar, 2014 [facility] [place] [facility] [address] [id number] [place] [address] Mar, [facility] [address] [place] [id number] [address] February, [facility] [address] [address] February, [facility] [address] [place] [id number] [address] February, [facility] [address] [address] February, [facility] [address] [address] February, [facility] [address] [address] February, [facility] [address] [address] February, [facility] [address] [address] February, [facility] [address] [place] [id number] [address] Jan, [facility] [address] [address] Jan, IMMUNIZATIONS No Known Immunizations SOCIAL HISTORY Never Assessed REASON FOR VISIT fell/hurt back, PT reports on day 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 PT notes he landed on his back in pain -Sanju on PR PLAN OF CARE VITAL SIGNS Height 68 in 2018-04-05 Weight 206.3 lbs 2018-04-05 Temperature 98.6 degrees Fahrenheit 2018-04-05 Heart Rate 57 bpm 2018-04-05 Respiratory Rate 20 2018-04-05 Oximetry on room air:96 % 2018-04-05 BMI 31.36 kg/m2 2018-04-05 Blood pressure systolic 140 mmHg 2018-04-05 Blood pressure diastolic 80 mmHg 2018-04-05 MEDICATIONS Medication Instructions Dosage Frequency Start Date End Date Duration Status Seroquel 50 mg Orally Once a day 1 tablet 24h 90 days Active Trazodone HCl 100 MG TAKE ONE (1) TABLET BY MOUTH ONCE DAILY AT BEDTIME 30 Active Valium 5 mg Orally Twice a day 1 tablet as needed 12h 28 Active Warfarin Sodium 7.5 MG Orally Once a day 1 tablet 24h 30 Active Cyclobenzaprine HCl 10 mg 1 tablet as needed 12h Active Atorvastatin Calcium 20 mg Orally Once a day 1 tablet 24h 15 Dec, 2017 30 day(s) Active RESULTS No Results PROCEDURES Procedure Date Ordered Result Body Site [facility] April 05, 2018 [facility] VISIT ESTABLISHED PATIENT April 05, 2018 INSTRUCTIONS MEDICATIONS ADMINISTERED No Known Medications MEDICAL (GENERAL) HISTORY Type Description Date Medical History Hx of DVT Medical History 2001 [place] Syndrome Medical History Closed fracture of one or more phalanges of foot Surgical History Right calf secondary to compartment syndrome 2004 Hospitalization History DVT- NO VENA CAVA FILTER 89,91,2000
--- OUTSIDE RECORDS SUMMARY | 2019-05-09 16:04 | XMS REPORT ---
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 Active 557739114 Problem halfway current use of anticoagulant therapy Z79.01 Active 617106142 Problem Frequent falls R29.6 Active 070780967 Problem 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 Active 5695067 Problem History of CVA (cerebrovascular accident) Z86.73 Active 988627572 Problem Anxiety F41.9 Active 28555103 Problem Other male erectile dysfunction N52.8 Active 086379265 Problem Neuropathy G62.9 Active 525462545 ALLERGIES No Information ENCOUNTERS Encounter Location Date Diagnosis [place] [id number] [place] [address] 12 Jun, 2018 Anxiety F41.9 [place] [address] [place] [id number] [place] [phone] 07 Jun, 2018 halfway current use of anticoagulant therapy Z79.01 [place] [address] [place] [id number] [place] [address] 15 May, 2018 Anxiety F41.9 [place] [id number] [place] [address] 10 May, 2018 halfway current use of anticoagulant therapy Z79.01 [place] [address] [place] [id number] [place] [address] Apr, Anxiety F41.9 [place] [address] [address] Mar, Anxiety F41.9 ; Acute bilateral low back pain without sciatica M54.5 ; Generalized weakness R53.1 ; Frequent falls R29.6 and 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 [place] [address] [address] Mar, Anxiety F41.9 [place] [address] [address] Mar, Medicare annual wellness visit, initial Z00.00 ; Primary hypercoagulable state D68.59 ; Anxiety F41.9 ; 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 ; Neuropathy G62.9 ; Hyperlipidemia, unspecified E78.5 ; Cardiomegaly I51.7 ; 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 and Insomnia G47.00 [place] [address] [place] [id number] [place] [address] Mar, 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 [place] [address] [place] [id number] [place] [address] Mar, halfway current use of anticoagulant therapy Z79.01 [place] [address] [place] [id number] [place] [address] February, 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 and 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 [place] [address] [address] February, [place] [address] [address] February, Anxiety F41.9 [place] [address] [address] Jan, Anxiety F41.9 [place] [address] [place] [address] Jan, [place] [id number] [place] [address] Dec, Anxiety F41.9 [place] [address] [place] [address] Dec, [place] [address] [place] [id number] [place] [address] Dec, 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 ; Cardiomegaly I51.7 ; 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 and 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 [place] [address] [place] [address] Dec, 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 ; Cardiomegaly I51.7 ; 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 and 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 [place] [address] [place] [address] Nov, [place] [id number] [id number] Nov, [place] [address] [place] [phone] Oct, [place] [address] [place] [address] Sep, [place] [address] [place] [id number] [place] [address] Sep, Sprain of ligaments of cervical spine, subsequent encounter S13.4XXD and halfway current use of anticoagulant therapy Z79.01 [place] [address] [place] [address] Aug, [place] [address] [address] Aug, 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 [place] [address] [place] [id number] [place] [address] Jul, [place] [address] [place] [address] Jun, [place] [address] [place] [id number] [place] [address] Jun, [place] [address] [place] [id number] [place] [address] May, [place] [address] [place] [id number] [place] [address] May, Sprain of ligaments of cervical spine, subsequent encounter S13.4XXD [place] [address] [place] [id number] [place] [phone] Apr, Medicare welcome exam Z00.00 ; Medicare annual wellness visit, initial Z00.00 ; Medicare annual wellness visit, subsequent Z00.00 and Vision changes H53.9 [place] [address] [place] [id number] [place] [address] Apr, Anxiety F41.9 [place] [address] [place] [address] Mar, History of CVA (cerebrovascular accident) Z86.73 ; Cardiomegaly I51.7 ; halfway current use of anticoagulant therapy Z79.01 ; Hyperlipidemia, unspecified E78.5 ; Insomnia G47.00 ; BPH (benign prostatic hyperplasia) N40.0 ; Neuropathy G62.9 ; Anxiety F41.9 and Other male erectile dysfunction N52.8 [place] [address] [place] [phone] Mar, [place] [address] [place] [phone] February, [place] [address] [place] [id number] [address] Jan, [facility] [id number] [place] [address] Dec, [facility] [address] [place] [id number] [place] [phone] Nov, [facility] [address] [place] [id number] [place] [phone] Oct, [facility] [address] [place] [id number] [place] [address] Oct, [facility] [address] [place] [id number] [place] [address] Oct, [facility] [address] [place] [id number] [place] [address] Oct, [facility] [address] [place] [id number] [place] [address] Oct, 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 and Hyperlipidemia, unspecified E78.5 [place] [address] [place] [id number] [place] [address] Aug, halfway current use of anticoagulant therapy Z79.01 ; Cardiomegaly I51.7 ; Insomnia G47.00 ; Neuropathy G62.9 ; Hyperlipidemia, unspecified E78.5 and Anxiety F41.9 [place] [address] [address] Aug, [place] [address] [place] [id number] [place] [address] 17 Aug, 2016 Impacted cerumen of right ear H61.21 and Neuropathy G62.9 [facility] [address] [place] [address] 14 Aug, 2016 Otalgia of right ear H92.01 and Impacted cerumen of right ear H61.21 [facility] [address] [place] [address] Jan, Rhinitis, allergic J30.9 [place] [address] [place] [address] Jan, 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 ; halfway current use of anticoagulant therapy Z79.01 ; Hyperlipidemia, unspecified E78.5 ; Cardiomegaly I51.7 ; Insomnia G47.00 and BPH (benign prostatic hyperplasia) N40.0 [place] [address] [place] [address] Dec, [place] [id number] [place] [address] Nov, halfway current use of anticoagulant therapy Z79.01 ; 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 ; URI (upper respiratory infection) J06.9 and Insomnia G47.00 [facility] [address] [id number] [place] [address] Oct, [address] [place] [address] Oct, halfway current use of anticoagulant therapy Z79.01 [address] [place] [address] Oct, Environmental allergies Z91.09 and Primary hypercoagulable state D68.59 [place] [address] [place] [address] Sep, Hyperlipidemia, unspecified E78.5 and halfway current use of anticoagulant therapy Z79.01 [address] [place] [address] Sep, Dyslipidemia 272.4 and 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 [address] [place] [address] Sep, Primary hypercoagulable state D68.59 [place] [address] [address] Sep, [place] [address] [place] [id number] [place] [address] Aug, Whiplash injury S13.4XXA [place] [address] [place] [address] Jul, 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 [place] [address] [place] [id number] [place] [address] Jul, Sprain of ligaments of cervical spine, subsequent encounter S13.4XXD ; Insomnia, unspecified G47.00 ; Hyperlipidemia, unspecified E78.5 and halfway current use of anticoagulant therapy Z79.01 [place] [address] [place] [address] Jul, [place] [address] [place] [id number] [place] [address] Jun, [place] [address] [place] [id number] [place] [address] Apr, Dyslipidemia 272.4 [place] [address] [place] [id number] [place] [address] Apr, Primary hypercoagulable state 289.81 [place] [address] [place] [address] Apr, Primary hypercoagulable state 289.81 [place] [address] [place] [address] Apr, Primary hypercoagulable state 289.81 [place] [address] [place] [id number] [place] [address] Jan, [place] [address] [place] [address] Jan, [place] [address] [place] [id number] [place] [phone] Dec, [facility] [place] [facility] [address] [id number] [place] [address] Dec, 2014 [facility] [place] [facility] [address] [id number] [place] [address] Dec, 2014 [facility] [place] [facility] [address] [id number] [place] [address] Dec, 2014 [facility] [place] [facility] [address] [id number] [place] [address] Nov, 2014 [facility] [place] [facility] [address] [id number] [place] [address] Nov, 2014 [facility] [place] [facility] [address] [id number] [place] [address] Nov, 2014 [facility] [place] [facility] [address] [id number] [place] [address] Nov, 2014 [facility] [place] [facility] [address] [id number] [place] [address] Apr, [facility] [place] [facility] [address] [id number] [place] [address] Mar, [facility] [place] [facility] [address] [id number] [place] [address] Mar, [facility] [place] [facility] [address] [id number] [place] [address] 16 Mar, 2014 [facility] [place] [facility] [address] [id number] [place] [address] 16 Mar, 2014 [facility] [place] [facility] [address] [id number] [place] [address] Mar, [facility] [place] [facility] [address] [id number] [place] [address] Mar, [facility] [place] [facility] [address] [id number] [place] [address] Mar, [facility] [place] [facility] [address] [address] Mar, [facility] [id number] [address] Mar, [facility] [address] [facility] [id number] [address] Mar, [facility] [address] [address] February, [facility] [address] [facility] [id number] [address] February, [facility] [address] [address] February, [facility] [address] [address] February, [facility] [address] [address] February, [facility] [address] [address] February, [facility] [id number] [address] February, [facility] [address] [place] [id number] [address] February, [facility] [address] [place] [id number] [address] Jan, [facility] [address] [place] [id number] [address] Jan, IMMUNIZATIONS No Known Immunizations SOCIAL HISTORY [...] Hx of DVT Medical History 2001 G[place] Syndrome Medical History Closed fracture of one or more phalanges of foot Surgical History Right calf secondary to compartment syndrome 2005 Hospitalization History DVT- NO VENA CAVA FILTER 89,91,2000
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
--- OUTSIDE RECORDS SUMMARY | 2019-05-09 16:08 | XMS REPORT ---
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 Active 550407187 Problem long term care social worker current use of anticoagulant therapy Z79.01 Active 288235103 Problem Frequent falls R29.6 Active 015870759 Problem 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 Active 9644608 Problem History of CVA (cerebrovascular accident) Z86.73 Active 615208633 Problem Anxiety F41.9 Active 84108246 Problem Other male erectile dysfunction N52.8 Active 592759607 Problem Neuropathy G62.9 Active 026785637 ALLERGIES No Information ENCOUNTERS Encounter Location Date Diagnosis [place] [id number] [place] [address] 28 Mar, 2018 Anxiety F41.9 ; Acute bilateral low back pain without sciatica M54.5 ; Generalized weakness R53.1 ; Frequent falls R29.6 and 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 [facility] [id number] [place] [address] 21 Mar, 2018 Anxiety F41.9 [place] [address] [address] 13 Mar, 2018 Medicare annual wellness visit, initial Z00.00 ; Primary hypercoagulable state D68.59 ; Anxiety F41.9 ; 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 ; Neuropathy G62.9 ; Hyperlipidemia, unspecified E78.5 ; Cardiomegaly I51.7 ; jail current use of anticoagulant therapy Z79.01 and Insomnia G47.00 [place] [address] [place] [id number] [place] [address] Mar, long term care social worker current use of anticoagulant therapy Z79.01 [place] [address] [place] [id number] [place] [address] Mar, long term care social worker current use of anticoagulant therapy Z79.01 [place] [address] [address] February, long term care social worker current use of anticoagulant therapy Z79.01 and 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 [place] [address] [place] [id number] [place] [address] February, [place] [address] [place] [id number] [place] [address] February, Anxiety F41.9 [place] [address] [place] [id number] [place] [address] Jan, Anxiety F41.9 [place] [address] [place] [id number] [place] [address] Jan, [place] [address] [place] [id number] [place] [address] Dec, Anxiety F41.9 [place] [address] [place] [id number] [place] [address] Dec, [place] [address] [place] [id number] [place] [address] 09 Dec, 2017 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 ; Cardiomegaly I51.7 ; 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 and 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 [facility] [address] [place] [address] Dec, 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 ; Cardiomegaly I51.7 ; 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 and 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 [facility] [address] [place] [address] Nov, [facility] [address] [id number] [place] [id number] Nov, [place] [address] [place] [id number] [place] [address] Oct, [place] [address] [place] [id number] [place] [address] Sep, [place] [address] [address] Sep, Sprain of ligaments of cervical spine, subsequent encounter S13.4XXD and long term care social worker current use of anticoagulant therapy Z79.01 [place] [address] [place] [id number] [place] [address] Aug, [place] [address] [place] [id number] [place] [address] Aug, 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 [place] [address] [place] [id number] [place] [address] Jul, [place] [address] [place] [id number] [place] [address] Jun, [place] [address] [place] [id number] [place] [address] Jun, [place] [address] [place] [id number] [place] [address] May, [place] [address] [place] [id number] [place] [address] May, Sprain of ligaments of cervical spine, subsequent encounter S13.4XXD [facility] [address], [place] [address] Apr, Medicare welcome exam Z00.00 ; Medicare annual wellness visit, initial Z00.00 ; Medicare annual wellness visit, subsequent Z00.00 and Vision changes H53.9 [place] [address], [place] [address] Apr, Anxiety F41.9 [place] [address], [place] [address] Mar, History of CVA (cerebrovascular accident) Z86.73 ; Cardiomegaly I51.7 ; long term care social worker current use of anticoagulant therapy Z79.01 ; Hyperlipidemia, unspecified E78.5 ; Insomnia G47.00 ; BPH (benign prostatic hyperplasia) N40.0 ; Neuropathy G62.9 ; Anxiety F41.9 and Other male erectile dysfunction N52.8 [place] [address] [address] Mar, [place] [address], [place] [address] February, [place] [address], [place] [address] Jan, [place] [address], [place] [address] Dec, [place] [address], [place] [address] Nov, [place] [address], [place] [address] Oct, [place] [address], [place] [address] Oct, [place] [address] [address] Oct, [place] [address] [place] [id number] [place] [address] Oct, [place] [id number] [place] [address] Oct, Hyperlipidemia, unspecified E78.5 and jail current use of anticoagulant therapy Z79.01 [place] [address] [place] [id number] [place] [address] Aug, jail current use of anticoagulant therapy Z79.01 ; Cardiomegaly I51.7 ; Insomnia G47.00 ; Neuropathy G62.9 ; Hyperlipidemia, unspecified E78.5 and Anxiety F41.[address] [address] Aug, [place] [id number] [place] [address] Aug, Impacted cerumen of right ear H61.21 and Neuropathy G62.9 [facility] [place] [address] [address] 14 Aug, 2016 Otalgia of right ear H92.01 and Impacted cerumen of right ear H61.21 [facility] [place] [id number] [place] [address] Jan, Rhinitis, allergic J30.9 [place] [id number] [place] [address] 07 Jan, 2016 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 ; long term care social worker current use of anticoagulant therapy Z79.01 ; Hyperlipidemia, unspecified E78.5 ; Cardiomegaly I51.7 ; Insomnia G47.00 and BPH (benign prostatic hyperplasia) N40.0 [place] [id number] [place] [address] Dec, [place] [id number] [place] [address] Nov, jail current use of anticoagulant therapy Z79.01 ; 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 ; URI (upper respiratory infection) J06.9 and Insomnia G47.00 [facility] [address] [id number] [place] [address] Oct, [place] [address] [place] [address] Oct, long term care social worker current use of anticoagulant therapy Z79.01 [place] [address] [place] [address] Oct, Environmental allergies Z91.09 and Primary hypercoagulable state D68.59 [place] [address] [place] [id number] [place] [address] Sep, Hyperlipidemia, unspecified E78.5 and jail current use of anticoagulant therapy Z79.01 [place] [address] [place] [id number] [place] [address] Sep, Dyslipidemia 272.4 and jail current use of anticoagulant therapy Z79.01 [place] [address] [place] [address] Sep, Primary hypercoagulable state D68.59 [place] [address] [place] [address] Sep, [place] [address] [place] [address] Aug, Whiplash injury S13.4XXA [place] [address] [place] [id number] [place] [address] Jul, jail current use of anticoagulant therapy Z79.01 [place] [address] [place] [id number] [place] [address] Jul, Sprain of ligaments of cervical spine, subsequent encounter S13.4XXD ; Insomnia, unspecified G47.00 ; Hyperlipidemia, unspecified E78.5 and long term care social worker current use of anticoagulant therapy Z79.01 [place] [address] [facility] [id number] [address] Jul, [facility] [address] [place] [id number] [place] [address] Jun, [facility] [address] [place] [id number] [place] [address] Apr, Dyslipidemia 272.4 [facility] [address] [place] [address] Apr, Primary hypercoagulable state 289.81 [facility] [address] [place] [id number] [place] [address] Apr, Primary hypercoagulable state 289.81 [facility] [address] [place] [address] Apr, Primary hypercoagulable state 289.81 [facility] [address] [place] [address] Jan, [facility] [address] [place] [id number] [place] [address] Jan, [facility] [address] [place] [address] Dec, [facility] [address] [place] [id number] [address] Dec, [facility] [address] [place] [id number] [place] [address] Dec, [facility] [address] [place] [id number] [address] Dec, [facility] [address] [place] [id number] [place] [address] Nov, [facility] [address] [place] [id number] [place] [address] Nov, [facility] [address] [place] [id number] [address] Nov, [facility] [place] [facility] [address] [id number] [place] [address] 17 Nov, 2014 [facility] [place] [facility] [address] [id number] [place] [address] Apr, [facility] [place] [facility] [address] [id number] [place] [address] Mar, [facility] [place] [facility] [address] [id number] [place] [address] Mar, [facility] [place] [facility] [address] [id number] [place] [address] Mar, [facility] [place] [facility] [address] [id number] [place] [address] Mar, [facility] [place] [facility] [address] [id number] [place] [address] Mar, [facility] [place] [facility] [address] [id number] [place] [address] Mar, [facility] [place] [facility] [address] [id number] [place] [address] Mar, [facility] [place] [facility] [address] [id number] [place] [address] Mar, [facility] [place] [facility] [address] [id number] [place] [address] Mar, [facility] [place] [facility] [address] [id number] [address] Mar, [facility] [place] [facility] [address] [id number] [place] [address] February, [facility] [place] [facility] [address] [id number] [place] [address] February, [facility] [place] [facility] [address] [id number] [place] [address] February, [facility] [place] [facility] [address] [facility] [id number] [place] [address] February, [facility] [address] [facility] [id number] [address] February, [facility] [address] [place] [id number] [address] February, [facility] [address] [facility] [id number] [address] February, [facility] [address] [place] [id number] [address] February, [facility] [address] [facility] [id number], [place] [address] Jan, [facility] [address] [facility] [id number], [place] [address] Jan, IMMUNIZATIONS No Known Immunizations SOCIAL HISTORY Never Assessed REASON FOR VISIT Diazepam PLAN OF CARE VITAL SIGNS MEDICATIONS Medication Instructions Dosage Frequency Start Date End Date Duration Status Diazepam 5 mg Orally Twice a day 1 tablet 12h 28 Active RESULTS No Results PROCEDURES No Known procedures INSTRUCTIONS MEDICATIONS ADMINISTERED No Known Medications MEDICAL (GENERAL) HISTORY Type Description Date Medical History Hx of DVT Medical History 2001 G[place]ian [place] Syndrome Medical History Closed fracture of one or more phalanges of foot Surgical History Right calf secondary to compartment syndrome 2005 Hospitalization History DVT- NO VENA CAVA FILTER 89,91,2000
--- OUTSIDE RECORDS SUMMARY | 2019-05-09 16:09 | XMS REPORT ---
Author Author OMID GRIFFITHS [facility] eClinicalWorks Address Unknown Phone Unavailable Care Team Providers Care Continuous [employer] Miner Name Role Phone OMID GRIFFITHS CP Unavailable Allergies No Known Allergies Problems Problem Type Condition Code Onset Dates Condition Status Assessment terminal carman current use of anticoagulant therapy Z79.01 Active Problem Insomnia, unspecified G47.00 Active Problem Hyperlipidemia, unspecified E78.5 Active Problem Sprain of ligaments of cervical spine, subsequent encounter S13.4XXD Active Problem Primary hypercoagulable state D68.59 Active Problem 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
--- OUTSIDE RECORDS SUMMARY | 2019-05-09 16:09 | XMS REPORT ---
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 Active 865236178 Problem Primary hypercoagulable state D68.59 Active 30651577 Problem 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 Active 3503845 Problem Other male erectile dysfunction N52.8 Active 136375241 Problem Anxiety F41.9 Active 62267149 Problem BPH (benign prostatic hyperplasia) N40.0 Active 193978147 Problem Neuropathy G62.9 Active 787543899 Problem History of CVA (cerebrovascular accident) Z86.73 Active 372842139 ALLERGIES No Information ENCOUNTERS Encounter Location Date Diagnosis [place] [id number] [place] [address] Mar, [place] [address] [place] [id number] [place] [address] February, [facility] [id number] [place] [address] Jan, Anxiety F41.9 [place] [id number] [place] [address] Jan, [place] [address] [address] Dec, Anxiety F41.9 [place] [id number] [place] [address] 15 Dec, 2017 [place] [address] [place] [id number] [place] [address] 09 Dec, 2017 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 ; Cardiomegaly I51.7 ; 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 and 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 [place] [address] [place] [id number] [place] [address] Dec, 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 ; Cardiomegaly I51.7 ; 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 and 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 [place] [address] [place] [address] [id number] [place] [address] Nov, [facility] [id number] [place] [id number] Nov, [place] [address] [place] [id number] [place] [address] Oct, [place] [address] [place] [id number] [place] [address] Sep, [place] [address] [place] [address] [id number] [place] [address] Sep, Sprain of ligaments of cervical spine, subsequent encounter S13.4XXD and penitentiary current use of anticoagulant therapy Z79.01 [place] [id number] [place] [address] Aug, [place] [address] [address] Aug, 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 [place] [address] [place] [id number] [place] [address] Jul, [place] [address] [place] [id number] [place] [address] Jun, [place] [address] [address] Jun, [place] [address] [address] May, [place] [address] [address] May, Sprain of ligaments of cervical spine, subsequent encounter S13.4XXD [place] [address] [address] Apr, Medicare welcome exam Z00.00 ; Medicare annual wellness visit, initial Z00.00 ; Medicare annual wellness visit, subsequent Z00.00 and Vision changes H53.9 [place] [address] [address] Apr, Anxiety F41.9 [place] [address] [id number] [address] Mar, History of CVA (cerebrovascular accident) Z86.73 ; Cardiomegaly I51.7 ; sod stripper current use of anticoagulant therapy Z79.01 ; Hyperlipidemia, unspecified E78.5 ; Insomnia G47.00 ; BPH (benign prostatic hyperplasia) N40.0 ; Neuropathy G62.9 ; Anxiety F41.9 and Other male erectile dysfunction N52.8 [place] [address] [address] Mar, [place] [address] [address] February, [place] [address] [place] [id number] [place] [address] Jan, [place] [address] [address] Dec, [place] [address] [address] Nov, [place] [address] [address] Oct, [place] [address] [place] [id number] [place] [address] Oct, [place] [id number] [place] [address] Oct, [place] [address] [place] [id number] [place] [address] Oct, [place] [address] [place] [id number] [place] [address] Oct, penitentiary current use of anticoagulant therapy Z79.01 and Hyperlipidemia, unspecified E78.5 [place] [address] [place] [id number] [place] [address] Aug, sod stripper current use of anticoagulant therapy Z79.01 ; Cardiomegaly I51.7 ; Insomnia G47.00 ; Neuropathy G62.9 ; Hyperlipidemia, unspecified E78.5 and Anxiety F41.9 [place] [address] [place] [id number] [place] [address] Aug, [place] [address] [place] [id number] [place] [address] 17 Aug, 2016 Impacted cerumen of right ear H61.21 and Neuropathy G62.9 [facility] [address] [place] [id number] [place] [address] 14 Aug, 2016 Otalgia of right ear H92.01 and Impacted cerumen of right ear H61.21 [facility] [address] [place] [id number] [place] [address] Jan, Rhinitis, allergic J30.9 [place] [address] [place] [id number] [place] [address] 07 Jan, 2016 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 ; penitentiary current use of anticoagulant therapy Z79.01 ; Hyperlipidemia, unspecified E78.5 ; Cardiomegaly I51.7 ; Insomnia G47.00 and BPH (benign prostatic hyperplasia) N40.0 [place] [address] [place] [id number] [place] [address] Dec, [place] [address] [place] [id number] [place] [address] Nov, penitentiary current use of anticoagulant therapy Z79.01 ; 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 ; URI (upper respiratory infection) J06.9 and Insomnia G47.00 [facility] [address] [id number] [place] [address] Oct, [place] [id number] [place] [address] Oct, penitentiary current use of anticoagulant therapy Z79.01 [place] [id number] [place] [address] Oct, Environmental allergies Z91.09 and Primary hypercoagulable state D68.59 [place] [id number] [place] [address] Sep, Hyperlipidemia, unspecified E78.5 and sod stripper current use of anticoagulant therapy Z79.01 [place] [id number] [place] [address] Sep, Dyslipidemia 272.4 and penitentiary current use of anticoagulant therapy Z79.01 [place] [address] [place] [address] Sep, Primary hypercoagulable state D68.[address] [address] Sep, [place] [id number] [place] [address] Aug, Whiplash injury S13.4XXA [address] [address] Jul, penitentiary current use of anticoagulant therapy Z79.01 [facility] [address] [place] [address] Jul, Sprain of ligaments of cervical spine, subsequent encounter S13.4XXD ; Insomnia, unspecified G47.00 ; Hyperlipidemia, unspecified E78.5 and penitentiary current use of anticoagulant therapy Z79.01 [facility] [address] [place] [id number] [place] [address] Jul, [place] [address] [place] [id number] [place] [address] Jun, [place] [address] [place] [id number] [place] [address] Apr, Dyslipidemia 272.4 [place] [address] [place] [id number] [place] [address] Apr, Primary hypercoagulable state 289.81 [place] [address] [place] [id number] [place] [address] Apr, Primary hypercoagulable state 289.81 [place] [address] [place] [id number] [place] [address] Apr, Primary hypercoagulable state 289.81 [place] [address] [address] 14 Jan, 2015 [place] [address] [place] [id number] [place] [address] Jan, [facility] [address] [address] Dec, [place] [address] [place] [id number] [place] [address] Dec, [place] [address] [address] Dec, [facility] [address] [place] [id number] [place] [address] [place] [address] 06 Dec, 2014 [facility] [place] [facility] [address] [id number] [place] [address] Nov, 2014 [facility] [place] [facility] [address] [id number] [place] [address] 19 Nov, 2014 [facility] [place] [facility] [address] [id number] [place] [address] Nov, 2014 [facility] [place] [facility] [address] [id number] [place] [address] Nov, 2014 [facility] [place] [facility] [address] [id number] [place] [address] Apr, [facility] [place] [facility] [address] [id number] [place] [address] Mar, [facility] [place] [facility] [address] [id number] [place] [address] Mar, [facility] [place] [facility] [address] [id number] [place] [address] Mar, [facility] [place] [facility] [address] [id number] [place] [address] Mar, [facility] [place] [facility] [address] [id number] [place] [address] Mar, [facility] [place] [facility] [address] [id number] [place] [address] Mar, [facility] [place] [facility] [address] [id number] [place] [address] Mar, [facility] [place] [facility] [address] [id number] [place] [address] Mar, [facility] [place] [facility] [address] [id number] [place] [address] 04 Mar, 2014 [facility] [place] [facility] [address] [id number] [place] [address] Mar, [facility] [address] [facility] [id number] [address] February, [facility] [address] [facility] [id number] [address] February, [facility] [address] [facility] [id number] [address] February, [facility] [address] [address] February, [facility] [address] [facility] [id number] [address] February, [facility] [address] [address] February, [facility] [address] [address] February, [facility] [address] [address] February, [facility] [address] [place] [id number] [address] Jan, [facility] [address] [place] [id number] [address] Jan, IMMUNIZATIONS No Known Immunizations SOCIAL HISTORY Never Assessed REASON FOR VISIT Diazepam 08/09 PLAN OF CARE VITAL SIGNS MEDICATIONS Medication Instructions Dosage Frequency Start Date End Date Duration Status Diazepam 5 mg Orally Twice a day 1 tablet as needed 12h 28 Active RESULTS No Results PROCEDURES No Known procedures INSTRUCTIONS MEDICATIONS ADMINISTERED No Known Medications MEDICAL (GENERAL) HISTORY Type Description Date Medical History Hx of DVT Medical History 2001 Gullian [place] Syndrome Medical History Closed fracture of one or more phalanges of foot Surgical History Right calf secondary to compartment syndrome 2005 Hospitalization History DVT- NO VENA CAVA FILTER 89,91,2000
--- OUTSIDE RECORDS SUMMARY | 2019-05-09 16:09 | XMS REPORT ---
Author ABDOUL Bradley [facility] eClinicalWorks Address Unknown Phone Unavailable Care Team Providers Care Electric Arc Welder Name Role Phone ABDOUL PICHARDO Unavailable Allergies, Adverse Reactions, Alerts Substance Reaction Event Type N.K.D.A. 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 LAB DRAW REQUIRED SHELBI Sep 18, 2015 1 tablet Trazodone HCl [facility] 60133242339 100 MG Orally Once a day 1 tablet at bedtime Benzonatate [facility] [address]-87 200 MG Orally Three times a day Oct 15, 2015 1 capsule as needed Procedures Procedure Coding System Code Date THER/PROPH/DIAG INJ, SC/IM CPT-4 73632 Oct 15, 2015 DEPO MEDROL 40 MG/ML CPT-4 J1030 Oct 15, 2015 DEXAMETHASONE 4MG/ML (PER 1 MG) CPT-4 J1100 Oct 15, 2015 Office Visit, Est Pt., Level 3 CPT-4 78403 Oct 15, 2015 [facility] VISIT ESTABLISHED PATIENT CPT-4 G0467 Oct 15, 2015 Vital Signs Date/Time: Oct 15, 2015 Temperature 98.9 F Weight 197.5 lbs Height 68 in BMI 30.03 Index Blood Pressure Diastolic 90 mmHg Blood Pressure Systolic 134 mmHg Cardiac Monitoring Heart Rate 72 bpm Results No Known Results Summary Purpose eClinicalWorks Submission
--- OUTSIDE RECORDS SUMMARY | 2019-05-09 16:09 | XMS REPORT ---
Author Author OMID GRIFFITHS [facility] eClinicalWorks Address Unknown Phone Unavailable Care Team Providers Care [employer] Tutor Name Role Phone OMID GRIFFITHS CP Unavailable Allergies No Known Allergies Problems Problem Type Condition Code Onset Dates Condition Status Assessment Hyperlipidemia, unspecified E78.5 Active Assessment guest room attendant current use of anticoagulant therapy Z79.01 Active Problem Insomnia, unspecified G47.00 Active Problem Hyperlipidemia, unspecified E78.5 Active Problem Sprain of ligaments of cervical spine, subsequent encounter S13.4XXD Active Problem Primary hypercoagulable state D68.59 Active Problem 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 [address]-25 40 MG Orally Once a day Sep 28, 2015 1 tablet Results No Known Results Summary Purpose eClinicalWorks Submission
--- OUTSIDE RECORDS SUMMARY | 2019-05-09 16:09 | XMS REPORT ---
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 809897382 Problem Other male erectile dysfunction N52.8 Active 376381575 Problem Neuropathy G62.9 Active 709441594 Problem BPH (benign prostatic hyperplasia) N40.0 Active 290371028 Problem Insomnia G47.00 Active 806594773 Problem History of CVA (cerebrovascular accident) Z86.73 Active 924747217 Problem Anxiety F41.9 Active 45307056 ALLERGIES Unknown Allergies SOCIAL HISTORY No smoking Hx information available PLAN OF CARE VITAL SIGNS MEDICATIONS Unknown Medications RESULTS Name Result Date Reference Range INR (IN HOUSE) 2016-10-13 INR 1.4 1.10 - 3.30 PREVIOUS INR 2.3 CURRENT COUMADIN DOSE 7.5mg qd NEW COUMADIN DOSE Lot # [id number] Exp date 08/2017 CBC 2016-10-13 WBC 6.2 3.4-10.8 RBC 4.68 4.14-5.80 Hemoglobin 14.8 12.6-17.7 Hematocrit 43.9 37.5-51.0 MCV 94 79-97 MCH 31.6 26.6-33.0 MCHC 33.7 31.5-35.7 RDW 13.7 12.3-15.4 Platelets 199 150-379 Neutrophils 57 Lymphs 31 Monocytes 8 Eos 2 Basos 1 Immature Cells Neutrophils (Absolute) 3.6 1.4-7.0 Lymphs (Absolute) 1.9 0.7-3.1 Monocytes(Absolute) 0.5 0.1-0.9 Eos (Absolute) 0.1 0.0-0.4 Baso (Absolute) 0.1 0.0-0.2 Immature Granulocytes 1 Immature Grans (Abs) 0.0 0.0-0.1 [facility] Hematology Comments: LIPID PANEL 2016-10-13 Cholesterol, Total 311 100-199 Triglycerides 309 0-149 HDL Cholesterol 45 >39 VLDL Cholesterol Juan 62 5-40 LDL Cholesterol Calc 204 0-99 Comment: CMP 2016-10-13 Glucose, Serum 116 65-99 BUN 12 8-27 Creatinine, Serum 0.55 0.76-1.27 eGFR If NonAfricn Am 109 >59 eGFR If Africn Am 126 >59 BUN/Creatinine Ratio 22 10-22 Sodium, Serum 141 134-144 Potassium, Serum 4.7 3.5-5.2 Chloride, Serum 101 96-106 Carbon Dioxide, Total 23 18-29 Calcium, Serum 9.2 8.6-10.2 Protein, Total, Serum 7.1 6.0-8.5 Albumin, Serum 4.3 3.6-4.8 Globulin, Total 2.8 1.5-4.5 A/G Ratio 1.5 1.1-2.5 Bilirubin, Total 0.4 0.0-1.2 Alkaline Phosphatase, S 100 39-117 AST (SGOT) 25 0-40 ALT (SGPT) 18 0-44 PROCEDURES Procedure Date Ordered Related Diagnosis [facility] Oct 13, 2016 PROTHROMBIN TIME Oct 13, 2016 VENIPUNCT, ROUTINE* Oct 13, 2016 IMMUNIZATIONS No Known Immunizations
--- OUTSIDE RECORDS SUMMARY | 2019-05-09 16:09 | XMS REPORT ---
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 033407660 Problem Other male erectile dysfunction N52.8 Active 586199833 Problem Neuropathy G62.9 Active 717449743 Problem BPH (benign prostatic hyperplasia) N40.0 Active 931173185 Problem Insomnia G47.00 Active 618380831 Problem History of CVA (cerebrovascular accident) Z86.73 Active 022093452 Problem Anxiety F41.9 Active 07560655 ALLERGIES Unknown Allergies SOCIAL HISTORY No smoking Hx information available PLAN OF CARE VITAL SIGNS MEDICATIONS Medication Instructions Dosage Frequency Start Date End Date Duration Status Valium 5 mg Orally Twice a day 1 tablet as needed 12h 28 Active RESULTS No Results PROCEDURES No Known procedures IMMUNIZATIONS No Known Immunizations
--- OUTSIDE RECORDS SUMMARY | 2019-05-09 16:09 | XMS REPORT ---
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 310892344 Problem Other male erectile dysfunction N52.8 Active 747310187 Problem Neuropathy G62.9 Active 202292352 Problem BPH (benign prostatic hyperplasia) N40.0 Active 426264638 Problem Insomnia G47.00 Active 559434180 Problem History of CVA (cerebrovascular accident) Z86.73 Active 470605807 Problem Anxiety F41.9 Active 16962690 ALLERGIES No Information SOCIAL HISTORY Never Assessed PLAN OF CARE VITAL SIGNS MEDICATIONS Medication Instructions Dosage Frequency Start Date End Date Duration Status Valium 5 mg Orally Twice a day 1 tablet as needed 12h 28 Active RESULTS No Results PROCEDURES No Known procedures IMMUNIZATIONS No Known Immunizations MEDICAL (GENERAL) HISTORY Type Description Date Medical History 

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
--- OUTSIDE RECORDS SUMMARY | 2019-05-09 16:09 | XMS REPORT ---
Author Author OMID GRIFFITHS [facility] e[employer] Address Unknown Phone Unavailable Care Team Providers Care Companion Caregiver Name Role Phone OMID GRIFFITHS CP Unavailable Allergies No Known Allergies Problems Problem Type Condition Code Onset Dates Condition Status Assessment Dyslipidemia 272.4 Active Assessment long term care administrator current use of anticoagulant therapy Z79.01 Active Problem Insomnia, unspecified G47.00 Active Problem Hyperlipidemia, unspecified E78.5 Active Problem Sprain of ligaments of cervical spine, subsequent encounter S13.4XXD Active Problem Primary hypercoagulable state D68.59 Active Problem 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 NOBLL Sep 25, 2015 Results Name Result Date Reference Range Unit Abnormality Flag ROUTINE VENIPUNCTURE Summary Purpose eClinical[employer] Submission
--- OUTSIDE RECORDS SUMMARY | 2019-05-09 16:10 | XMS REPORT ---
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
--- OUTSIDE RECORDS SUMMARY | 2019-05-09 16:10 | XMS REPORT ---
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 Active 609758813 Problem Primary hypercoagulable state D68.59 Active 59062191 Problem 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 Active 2377637 Problem Other male erectile dysfunction N52.8 Active 952653505 Problem Anxiety F41.9 Active 62168789 Problem BPH (benign prostatic hyperplasia) N40.0 Active 837405948 Problem Neuropathy G62.9 Active 996908823 Problem History of CVA (cerebrovascular accident) Z86.73 Active 683576046 ALLERGIES No Information ENCOUNTERS Encounter Location Date Diagnosis [place] [id number] [place] [address] February, Medicare annual wellness visit, initial Z00.00 [facility] [address] [place] [address] [id number] [place] [address] Dec, Anxiety F41.9 [place] [address] [place] [id number] [place] [address] Dec, [facility] [address] [id number] [place] [address] Dec, 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 ; Cardiomegaly I51.7 ; 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 and 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 [place] [address] [address] Dec, 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 ; Cardiomegaly I51.7 ; 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 and 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 [place] [address] [address] Nov, [facility] [address] [id number] Nov, [place] [address] [address] Oct, [place] [address] [address] Sep, [place] [address] [address] Sep, Sprain of ligaments of cervical spine, subsequent encounter S13.4XXD and 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 Z79.01 [place] [address] [place] [id number] [place] [address] Aug, [place] [address] [address] Aug, 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 [place] [address] [address] Jul, [place] [address] [address] Jun, [place] [address] [address] Jun, [place] [address] [address] May, [place] [address] [address] May, Sprain of ligaments of cervical spine, subsequent encounter S13.4XXD [place] [address] [place] [id number] [place] [address] Apr, Medicare welcome exam Z00.00 ; Medicare annual wellness visit, initial Z00.00 ; Medicare annual wellness visit, subsequent Z00.00 and Vision changes H53.9 [place] [address] [place] [id number] [place] [address] Apr, Anxiety F41.9 [place] [address] [place] [id number] [place] [address] Mar, History of CVA (cerebrovascular accident) Z86.73 ; Cardiomegaly I51.7 ; custodial current use of anticoagulant therapy Z79.01 ; Hyperlipidemia, unspecified E78.5 ; Insomnia G47.00 ; BPH (benign prostatic hyperplasia) N40.0 ; Neuropathy G62.9 ; Anxiety F41.9 and Other male erectile dysfunction N52.8 [place] [address] [place] [id number] [place] [address] Mar, [place] [address] [place] [id number] [place] [address] February, [place] [address] [address] Jan, [place] [address] [place] [id number] [place] [address] Dec, [place] [address] [place] [address] Nov, [place] [address] [place] [id number] [place] [address] Oct, [place] [address] [place] [address] Oct, [place] [address] [place] [address] [address] Oct, [place] [address] [address] Oct, [place] [address] [address] Oct, 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 Z79.01 and Hyperlipidemia, unspecified E78.5 [place] [address] [address] Aug, 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 Z79.01 ; Cardiomegaly I51.7 ; Insomnia G47.00 ; Neuropathy G62.9 ; Hyperlipidemia, unspecified E78.5 and Anxiety F41.9 [place] [address] [address] Aug, [place] [address] [address] Aug, Impacted cerumen of right ear H61.21 and Neuropathy G62.9 [facility] [address] [address] 14 Aug, 2016 Otalgia of right ear H92.01 and Impacted cerumen of right ear H61.21 [facility] [address] [address] Jan, Rhinitis, allergic J30.9 [place] [address] [address] 07 Jan, 2016 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 ; 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 Z79.01 ; Hyperlipidemia, unspecified E78.5 ; Cardiomegaly I51.7 ; Insomnia G47.00 and BPH (benign prostatic hyperplasia) N40.0 [place] [address] [address] Dec, [place] [address] [address] Nov, 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 Z79.01 ; 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 ; URI (upper respiratory infection) J06.9 and Insomnia G47.00 [facility] [address] [id number] [address] Oct, [place] [id number] [place] [address] Oct, custodial current use of anticoagulant therapy Z79.01 [place] [address] [place] [id number] [place] [address] Oct, Environmental allergies Z91.09 and Primary hypercoagulable state D68.59 [place] [id number] [place] [address] Sep, Hyperlipidemia, unspecified E78.5 and 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 Z79.01 [place] [address] [place] [id number] [place] [address] Sep, Dyslipidemia 272.4 and 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 Z79.01 [place] [address] [place] [id number] [place] [address] Sep, Primary hypercoagulable state D68.59 [place] [address] [place] [id number] [place] [address] Sep, [place] [address] [place] [id number] [place] [address] Aug, Whiplash injury S13.4XXA [place] [id number] [place] [address] Jul, 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 Z79.01 [place] [address] [place] [address] Jul, Sprain of ligaments of cervical spine, subsequent encounter S13.4XXD ; Insomnia, unspecified G47.00 ; Hyperlipidemia, unspecified E78.5 and custodial current use of anticoagulant therapy Z79.01 [facility] [address] [address] Jul, [facility] [address] [address] Jun, [facility] [address] [address] Apr, Dyslipidemia 272.4 [facility] [address] [place] [address] Apr, Primary hypercoagulable state 289.81 [facility] [address] [address] Apr, Primary hypercoagulable state 289.81 [facility] [address] [address] Apr, Primary hypercoagulable state 289.81 [facility] [address] [place] [address] Jan, [facility] [address] [place] [address] Jan, [facility] [address] [place] [address] Dec, [facility] [address] [place] [id number] [address] Dec, [facility] [address] [address] Dec, [facility] [address] [place] [address] [id number] [address] Dec, [facility] [address] [place] [id number] [address] Nov, [facility] [address] [id number] [address] Nov, [facility] [place] [facility] [address] [id number] [place] [address] Nov, [facility] [place] [facility] [address] [id number] [place] [address] Nov, [facility] [place] [facility] [address] [id number] [place] [address] Apr, [facility] [place] [facility] [address] [id number] [place] [address] Mar, [facility] [place] [facility] [address] [id number] [place] [address] Mar, [facility] [place] [facility] [address] [id number] [place] [address] Mar, [facility] [place] [facility] [address] [id number] [place] [address] Mar, [facility] [place] [facility] [address] [id number] [place] [address] Mar, [facility] [place] [facility] [address] [id number] [place] [address] Mar, [facility] [place] [facility] [address] [id number] [place] [address] Mar, [facility] [place] [facility] [address] [id number] [place] [address] Mar, [facility] [place] [facility] [address] [id number], [place] [address] Mar, [facility] [place] [facility] [address] [id number] [place] [address] Mar, [facility] [place] [facility] [address] [id number] [place] [address] February, [facility] [place] [facility] [address] [id number] [place] [address] February, [facility] [place] [facility] [address] [id number], [place] [address] February, [facility] [address] [id number] [address] February, [facility] [id number] [address] February, [facility] [id number] [address] February, [facility] [id number] [address] February, [facility] [id number] [address] February, [facility] [id number] [address] Jan, [facility] [address] [id number] [address] Jan, IMMUNIZATIONS No Known Immunizations SOCIAL HISTORY Never Assessed REASON FOR VISIT Diazepam- 05/17 PLAN OF CARE VITAL SIGNS MEDICATIONS Medication Instructions Dosage Frequency Start Date End Date Duration Status Diazepam 5 mg Orally Twice a day TAKE ONE TABLET BY MOUTH TWICE DAILY NEEDED 12h 28 Active RESULTS No Results PROCEDURES No Known procedures INSTRUCTIONS MEDICATIONS ADMINISTERED No Known Medications MEDICAL (GENERAL) HISTORY Type Description Date Medical History Hx of DVT Medical History 2001 G[place] Syndrome Medical History Closed fracture of one or more phalanges of foot Surgical History Right calf secondary to compartment syndrome 2005 Hospitalization History DVT- NO VENA CAVA FILTER 89,91,2000
--- OUTSIDE RECORDS SUMMARY | 2019-05-09 16:10 | XMS REPORT ---
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 Active 420571043 Problem Other male erectile dysfunction N52.8 Active 498511050 Problem Neuropathy G62.9 Active 584101088 Problem BPH (benign prostatic hyperplasia) N40.0 Active 732614893 Problem Insomnia G47.00 Active 081735584 Problem History of CVA (cerebrovascular accident) Z86.73 Active 014491312 Problem Anxiety F41.9 Active 18928745 ALLERGIES Unknown Allergies SOCIAL HISTORY No smoking Hx information available PLAN OF CARE VITAL SIGNS MEDICATIONS Medication Instructions Dosage Frequency Start Date End Date Duration Status Valium 5 mg Orally Twice a day 1 tablet as needed 12h 28 Active RESULTS No Results PROCEDURES No Known procedures IMMUNIZATIONS No Known Immunizations
--- OUTSIDE RECORDS SUMMARY | 2019-05-09 16:10 | XMS REPORT ---
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
--- OUTSIDE RECORDS SUMMARY | 2019-05-09 16:10 | XMS REPORT ---
Author Author OMID GRIFFITHS [facility] [place] e[employer] Address Unknown Phone Unavailable Care Team Providers Care Geoscience Technician Name Role Phone OMID GRIFFITHS CP Unavailable Allergies No Known Allergies Problems Problem Type Condition Code Onset Dates Condition Status Problem Routine general medical examination at health care facility V70.0 Active Problem Polyneuropathy in other diseases classified elsewhere 357.4 Active Problem Personal history of venous thrombosis and embolism V12.51 Active Problem Unspecified osteoporosis 733.00 Active Problem Hypertensive heart disease, unspecified, with heart failure 402.91 Active Problem Insomnia, unspecified 780.52 Active Problem Primary hypercoagulable state 289.81 Active Problem Cardiomegaly 429.3 Active Problem Other and unspecified hyperlipidemia 272.4 Active Problem Coronary atherosclerosis of unspecified type of vessel, table mountain or graft 414.00 Active Problem prison current use of anticoagulant therapy V58.61 Active Problem Impotence of organic origin 607.84 Active Problem Unspecified pruritic disorder 698.9 Active Problem Other acne 706.1 Active Problem Unspecified disorder of skin and subcutaneous tissue 709.9 Active Problem Special screening for malignant neoplasms, colon V76.51 Active Problem Unspecified alopecia 704.00 Active Problem Special screening for malignant neoplasm of prostate V76.44 Active Medications No Known Medications Results No Known Results Summary Purpose eClinicalWorks Submission
--- OUTSIDE RECORDS SUMMARY | 2019-05-09 16:10 | XMS REPORT ---
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 Active 981916908 Problem Primary hypercoagulable state D68.59 Active 80530468 Problem 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 Active 9912017 Problem Other male erectile dysfunction N52.8 Active 083483570 Problem Anxiety F41.9 Active 31504199 Problem BPH (benign prostatic hyperplasia) N40.0 Active 818436554 Problem Neuropathy G62.9 Active 948995364 Problem History of CVA (cerebrovascular accident) Z86.73 Active 520881897 ALLERGIES No Known Allergies ENCOUNTERS Encounter Location Date Diagnosis [facility] [address] [place] [address] February, Medicare annual wellness visit, initial Z00.00 [facility] [address] [place] [address] Dec, Anxiety F41.9 [facility] [id number] [place] [address] Dec, [facility] [id number] [place] [address] Dec, 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 ; Cardiomegaly I51.7 ; 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 and 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 [place] [id number] [place] [address] Dec, 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 ; Cardiomegaly I51.7 ; 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 and 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 [place] [id number] [place] [address] Nov, [facility] [id number] [place] [id number] Nov, [place] [address] [address] Oct, [place] [address] [address] Sep, [place] [address] [address] Sep, Sprain of ligaments of cervical spine, subsequent encounter S13.4XXD and 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 [place] [id number] [place] [address] Aug, [place] [id number] [place] [address] Aug, 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 [place] [id number] [place] [address] Jul, [place] [address] [address] Jun, [place] [address] [address] Jun, [place] [id number] [place] [address] May, [place] [address] [address] May, Sprain of ligaments of cervical spine, subsequent encounter S13.4XXD [place] [id number] [place] [address] Apr, Medicare welcome exam Z00.00 ; Medicare annual wellness visit, initial Z00.00 ; Medicare annual wellness visit, subsequent Z00.00 and Vision changes H53.9 [place] [id number] [place] [address] Apr, Anxiety F41.9 [place] [id number] [place] [address] Mar, History of CVA (cerebrovascular accident) Z86.73 ; Cardiomegaly I51.7 ; [facility] current use of anticoagulant therapy Z79.01 ; Hyperlipidemia, unspecified E78.5 ; Insomnia G47.00 ; BPH (benign prostatic hyperplasia) N40.0 ; Neuropathy G62.9 ; Anxiety F41.9 and Other male erectile dysfunction N52.8 [place] [address] [place] [address] Mar, [place] [id number] [place] [address] February, [place] [address] [place] [address] Jan, [place] [id number] [place] [address] Dec, [place] [id number] [place] [address] Nov, [place] [id number] [place] [address] Oct, [place] [address] [place] [address] Oct, [place] [address] [address] Oct, [place] [address] [address] Oct, [place] [address] [address] Oct, 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 and Hyperlipidemia, unspecified E78.[address] [address] Aug, 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 ; Cardiomegaly I51.7 ; Insomnia G47.00 ; Neuropathy G62.9 ; Hyperlipidemia, unspecified E78.5 and Anxiety F41.[address] [address] Aug, [place] [address] [address] Aug, Impacted cerumen of right ear H61.21 and Neuropathy G62.9 [facility] [address] [address] 14 Aug, 2016 Otalgia of right ear H92.01 and Impacted cerumen of right ear H61.21 [facility] [address] [address] Jan, Rhinitis, allergic J30.9 [place] [address] [address] 07 Jan, 2016 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 ; [facility] current use of anticoagulant therapy Z79.01 ; Hyperlipidemia, unspecified E78.5 ; Cardiomegaly I51.7 ; Insomnia G47.00 and BPH (benign prostatic hyperplasia) N40.0 [place] [address] [address] Dec, [place] [address] [place] [address] Nov, [facility] current use of anticoagulant therapy Z79.01 ; 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 ; URI (upper respiratory infection) J06.9 and Insomnia G47.00 [facility] [address] [id number] [place] [address] Oct, [place] [id number] [place] [address] Oct, [facility] current use of anticoagulant therapy Z79.01 [place] [id number] [place] [address] Oct, Environmental allergies Z91.09 and Primary hypercoagulable state D68.59 [address] [id number] [place] [address] Sep, Hyperlipidemia, unspecified E78.5 and [facility] current use of anticoagulant therapy Z79.01 [place] [id number] [place] [address] Sep, Dyslipidemia 272.4 and 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 [place] [id number] [place] [address] Sep, Primary hypercoagulable state D68.59 [place] [id number] [place] [address] Sep, [place] [id number] [place] [address] Aug, Whiplash injury S13.4XXA [address] [address] Jul, 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 [place] [address] [place] [address] Jul, Sprain of ligaments of cervical spine, subsequent encounter S13.4XXD ; Insomnia, unspecified G47.00 ; Hyperlipidemia, unspecified E78.5 and 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 [facility] [address], [place] [address] Jul, [facility] [address] [place] [address] Jun, [facility] [address], [place] [address] Apr, Dyslipidemia 272.4 [facility] [address] [place] [address] Apr, Primary hypercoagulable state 289.81 [facility] [address], [place] [address] Apr, Primary hypercoagulable state 289.81 [facility] [address], [place] [address] Apr, Primary hypercoagulable state 289.81 [facility] [address], [place] [address] Jan, [facility] [address], [place] [address] Jan, [facility] [address], [place] [address] Dec, [facility] [id number], [place] [address] Dec, [facility] [address], [place] [address] Dec, [facility] [id number] [address] Dec, [facility] [address], [place] [address] Nov, [facility] [id number], [place] [address] Nov, [facility] [place] [facility] [address] [id number] [place] [address] Nov, [facility] [place] [facility] [address] [id number] [place] [address] Nov, [facility] [place] [facility] [address] [id number] [place] [address] Apr, [facility] [place] [facility] [address] [id number] [place] [address] Mar, [facility] [place] [facility] [address] [id number] [place] [address] Mar, [facility] [place] [facility] [address] [id number] [place] [address] Mar, [facility] [place] [facility] [address] [id number] [place] [address] Mar, [facility] [place] [facility] [address] [id number] [place] [address] Mar, [facility] [place] [facility] [address] [id number] [place] [address] Mar, [facility] [place] [facility] [address] [id number] [place] [address] Mar, [facility] [place] [facility] [address] [id number] [place] [address] Mar, [facility] [place] [facility] [address] [id number], [place] [address] Mar, [facility] [place] [facility] [address] [id number] [place] [address] Mar, [facility] [place] [facility] [address] [id number] [place] [address] February, [facility] [place] [facility] [address] [id number] [place] [address] February, [facility] [place] [facility] [address] [id number], [place] [address] February, [facility] [address] [facility] [id number] [address] February, [facility] [id number], [place] [address] February, [facility] [address] [place] [address] February, [facility] [address], [place] [address] February, [facility] [address] [facility] [id number], [place] [address] February, [facility] [address], [place] [address] Jan, [facility] [id number], [place] [address] Jan, IMMUNIZATIONS No Known Immunizations SOCIAL HISTORY Never Assessed REASON FOR VISIT INR, Back pain is wondering if it is related to him limping, want to see if musc le relaxants would work., Wants to have a script for ernesto. PLAN OF CARE Activity Details Follow Up 3 Months Reason:cva, htn, insomnia VITAL SIGNS Height 68 in 2017-04-07 Weight 185.3 lbs 2017-04-07 Temperature 97.8 degrees Fahrenheit 2017-04-07 Heart Rate 68 bpm 2017-04-07 Respiratory Rate 20 2017-04-07 BMI 28.17 kg/m2 2017-04-07 Blood pressure systolic 124 mmHg 2017-04-07 Blood pressure diastolic 90 mmHg 2017-04-07 MEDICATIONS Medication Instructions Dosage Frequency Start Date End Date Duration Status Cyclobenzaprine HCl 10 mg Orally Three times a day 1 tablet as needed 8h 30 Mar, 2017 Active Trazodone HCl 100 mg Orally Once a day TAKE ONE TABLET BY MOUTH AT BEDTIME 24h 90 days Active Seroquel 50 mg Orally Once a day 1 tablet 24h 90 days Active Coumadin 7.5 Orally Once a day 1 tablet 24h 25 Oct, 2015 90 days Active Pravastatin Sodium 40 mg Orally 1 and 3 TAKE ONE TABLET BY MOUTH ONCE DAILY 90 days Active Valium 5 mg Orally Twice a day 1 tablet as needed 12h 28 Active Cialis 20 mg Orally Once a day 1 tablet 24h 30 Mar, 2017 Apr, 10 days Active RESULTS Name Result Date Reference Range INR (IN HOUSE) INR 1.4 1.10 - 3.30 PREVIOUS INR 1.4 CURRENT COUMADIN DOSE 7.5 mg QD NEW COUMADIN DOSE Lot # [id number] Exp date 11/08/2017 PROCEDURES Procedure Date Ordered Result Body Site PROTHROMBIN TIME April 07, 2017 [facility] VISIT ESTABLISHED PATIENT April 07, 2017 INSTRUCTIONS MEDICATIONS ADMINISTERED No Known Medications MEDICAL (GENERAL) HISTORY Type Description Date Medical History 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
--- NOTE | 2019-05-09 16:11 | NUR ---
pt alert gcs 15. denies dyspnea and no acute sighns of dyspnea noted. pt c/o pain and swelling left arm. h/o blood clots and was off blood thinner x 1 week and restarted it 1 week ago. positive pulse and sensation left arm. pt has minor swelling to left elbow area and pain site israting 3 appears somewhat hard to touch. pt denies recent injury but also relates slept on left arm 1 week ago and then the pain and swelling started next day. no sighns of cellulitis noted.
--- OUTSIDE RECORDS SUMMARY | 2019-05-09 16:11 | XMS REPORT ---
Author AMANDA Rucker [facility] eClinicalWorks Address Unknown Phone Unavailable Care Team Providers Care Animal Physiology Teacher Name Role Phone AMANDA TY CP Unavailable Allergies, Adverse Reactions, Alerts Substance Reaction Event Type N.K.D.A. 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 Active Problem URI (upper respiratory infection) J06.9 Active Problem Insomnia G47.00 Active Problem BPH (benign prostatic hyperplasia) N40.0 Active Problem [facility] current use of anticoagulant therapy Z79.01 Active Problem Cardiomegaly I51.7 Active Problem Sprain of ligaments of cervical spine, subsequent encounter S13.4XXD Active Problem Hyperlipidemia, unspecified E78.5 Active Medications Medication Code System Code Instructions Start Date End Date Status Dosage Pravastatin Sodium [facility] [address]-28 40 mg Orally Once a day Sep 28, 2015 1 tablet Fluticasone Propionate [facility] [address]-84 50 MCG/ACT Nasally Once a day Nov 25, 2015 1 spray in each nostril Promethazine-Codeine [facility] [address]-98 6.25-10 MG/5ML Orally every 6 hrs February 03, 2016 5 [place] [address]-27 7.5 Orally Once a day Nov 02, 2015 1 [place] [address]-82 0.4 MG Orally Once a day January 14, 2016 April 13, 2016 1 capsule 30 minutes after the same meal each day Adrianna ND 0 180 MG Orally Once a day February 01, 2016 1 tablet as needed PredniSONE [facility] [address]-78 20 mg Orally Once a day February 03, 2016 February 08, 2016 2 tablets Trazodone HCl [facility] [address]-13 100 MG Orally Once a day 1 tablet at bedtime Procedures Procedure Coding System Code Date Office Visit, Est Pt., Level 3 CPT-4 01247 February 03, 2016 [facility] VISIT ESTABLISHED PATIENT CPT-4 G0467 February 03, 2016 Vital Signs Date/Time: February 03, 2016 Temperature 98.1 F Weight 199.8 lbs Height 68 in BMI 30.38 Index Blood Pressure Diastolic 94 mmHg Blood Pressure Systolic 138 mmHg Cardiac Monitoring Heart Rate 88 bpm Results No Known Results Summary Purpose eClinicalWorks Submission
--- OUTSIDE RECORDS SUMMARY | 2019-05-09 16:11 | XMS REPORT ---
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 Active 210828286 Problem Primary hypercoagulable state D68.59 Active 31978453 Problem 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 Active 3983615 Problem Other male erectile dysfunction N52.8 Active 571364872 Problem Anxiety F41.9 Active 04083530 Problem BPH (benign prostatic hyperplasia) N40.0 Active 161519808 Problem Neuropathy G62.9 Active 694556708 Problem History of CVA (cerebrovascular accident) Z86.73 Active 160059592 ALLERGIES No Information ENCOUNTERS Encounter Location Date Diagnosis [place] [address] [place] [address] 13 Mar, 2018 Medicare annual wellness visit, initial Z00.00 ; Anxiety F41.9 ; 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 ; Neuropathy G62.9 ; Hyperlipidemia, unspecified E78.5 and Cardiomegaly I51.7 [facility] [address] [place] [id number] [place] [address] February, 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 and 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 [place] [address] [place] [id number] [place] [address] February, [facility] [address], [place] [address] February, Anxiety F41.9 [facility] [address] [place] [address] Jan, Anxiety F41.9 [facility] [address] [place] [address] Jan, [facility] [address] [place] [address] Dec, Anxiety F41.9 [facility] [address] [place] [address] Dec, [facility] [address] [place] [address] Dec, 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 ; Cardiomegaly I51.7 ; 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 and 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 [facility] [address], [place] [address] Dec, 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 ; Cardiomegaly I51.7 ; 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 and 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 [facility] [address], [place] [address] Nov, [facility] [address] [id number] [id number] Nov, [facility] [address] [place] [address] Oct, [facility] [address], [place] [address] Sep, [facility] [address], [place] [address] Sep, Sprain of ligaments of cervical spine, subsequent encounter S13.4XXD and longterm current use of anticoagulant therapy Z79.01 [place] [address] [place] [address] Aug, [place] [address], [place] [address] Aug, 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 [place] [address] [place] [id number] [place] [address] Jul, [place] [address] [place] [id number] [place] [address] Jun, [place] [address] [place] [id number] [place] [address] Jun, [place] [address] [place] [id number] [place] [address] May, [place] [address] [place] [id number] [place] [address] May, Sprain of ligaments of cervical spine, subsequent encounter S13.4XXD [place] [address] [place] [id number] [place] [address] Apr, Medicare welcome exam Z00.00 ; Medicare annual wellness visit, initial Z00.00 ; Medicare annual wellness visit, subsequent Z00.00 and Vision changes H53.9 [place] [address] [place] [address] Apr, Anxiety F41.9 [place] [address] [place] [address] Mar, History of CVA (cerebrovascular accident) Z86.73 ; Cardiomegaly I51.7 ; 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 ; Hyperlipidemia, unspecified E78.5 ; Insomnia G47.00 ; BPH (benign prostatic hyperplasia) N40.0 ; Neuropathy G62.9 ; Anxiety F41.9 and Other male erectile dysfunction N52.8 [place] [address], [place] [address] 14 Mar, 2017 [facility] [address], [place] [address] February, [facility] [address], [place] [address] Jan, [facility] [address] [place] [id number] [place] [address] Dec, [facility] [address] [place] [id number] [place] [address] Nov, [facility] [address] [place] [id number] [place] [address] Oct, [facility] [address] [place] [id number] [place] [address] Oct, [facility] [address] [place] [id number] [place] [address] Oct, [facility] [address] [place] [address] Oct, [facility] [address] [place] [address] Oct, longterm current use of anticoagulant therapy Z79.01 and Hyperlipidemia, unspecified E78.5 [place] [address] [place] [address] Aug, longterm current use of anticoagulant therapy Z79.01 ; Cardiomegaly I51.7 ; Insomnia G47.00 ; Neuropathy G62.9 ; Hyperlipidemia, unspecified E78.5 and Anxiety F41.9 [facility] [address], [place] [address] Aug, [facility] [address], [place] [address] Aug, Impacted cerumen of right ear H61.21 and Neuropathy G62.9 [facility] [address] [place] [address] [place] [address] 14 Aug, 2016 Otalgia of right ear H92.01 and Impacted cerumen of right ear H61.21 [facility] [address] [place] [address] 27 Jan, 2016 Rhinitis, allergic J30.9 [place] [id number] [place] [address] 07 Jan, 2016 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 ; longterm current use of anticoagulant therapy Z79.01 ; Hyperlipidemia, unspecified E78.5 ; Cardiomegaly I51.7 ; Insomnia G47.00 and BPH (benign prostatic hyperplasia) N40.0 [place] [id number] [place] [address] Dec, [place] [id number] [place] [address] Nov, 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 ; 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01 [place] [id number] [place] [address] Sep, Dyslipidemia 272.4 and longterm current use of anticoagulant therapy Z79.01 [place] [address], [place] [address] Sep, Primary hypercoagulable state D68.59 [place] [address], [place] [address] Sep, [place] [address] [place] [id number] [place] [address] Aug, Whiplash injury S13.4XXA [place] [address] [place] [address] Jul, 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 [place] [address] [place] [id number] [place] [address] Jul, Sprain of ligaments of cervical spine, subsequent encounter S13.4XXD ; Insomnia, unspecified G47.00 ; Hyperlipidemia, unspecified E78.5 and longterm current use of anticoagulant therapy Z79.01 [place] [address], [place] [address] Jul, [place] [address] [place] [id number] [place] [address] Jun, [place] [address] [place] [address] Apr, Dyslipidemia 272.4 [place] [address] [place] [address] Apr, Primary hypercoagulable state 289.81 [place] [address], [place] [address] Apr, Primary hypercoagulable state 289.81 [place] [address], [place] [address] Apr, Primary hypercoagulable state 289.81 [place] [address] [place] [address] 14 Jan, 2015 [facility] [place] [facility] [address] [id number] [place] [address] 13 Jan, 2015 [facility] [place] [facility] [address] [id number] [place] [address] Dec, [facility] [place] [facility] [address] [id number] [place] [address] Dec, [facility] [place] [facility] [address] [id number] [place] [address] Dec, [facility] [place] [facility] [address] [id number] [place] [address] Dec, [facility] [place] [facility] [address] [id number] [place] [address] Nov, 2014 [facility] [place] [facility] [address] [id number] [place] [address] Nov, 2014 [facility] [place] [facility] [address] [id number] [place] [address] Nov, 2014 [facility] [place] [facility] [address] [id number] [place] [address] Nov, 2014 [facility] [place] [facility] [address] [id number] [place] [address] Apr, [facility] [place] [facility] [address] [id number] [place] [address] Mar, [facility] [place] [facility] [address] [id number] [place] [address] 18 Mar, 2014 [facility] [place] [facility] [address] [id number] [place] [address] 16 Mar, 2014 [facility] [place] [facility] [address] [id number] [place] [address] 16 Mar, 2014 [facility] [place] [facility] [address] [id number] [place] [address] 12 Mar, 2014 [facility] [place] [facility] [address] [facility] [id number], [place] [address] Mar, [facility] [address] [facility] [id number], [place] [address] Mar, [facility] [address] [facility] [id number], [place] [address] Mar, [facility] [address] [facility] [id number], [place] [address] Mar, [facility] [address] [facility] [id number] [place] [address] Mar, [facility] [address] [facility] [id number] [place] [address] February, [facility] [address] [facility] [id number], [place] [address] February, [facility] [address], [place] [address] February, [facility] [address] [facility] [id number], [place] [address] February, [facility] [address] [id number] [address] February, [facility] [id number], [place] [address] February, [facility] [id number], [place] [address] February, [facility] [address] [facility] [id number], [place] [address] February, [facility] [address] [id number], [place] [address] Jan, [facility] [address] [facility] [id number], [place] [address] Jan, IMMUNIZATIONS No Known Immunizations SOCIAL HISTORY Never Assessed REASON FOR VISIT Refill request PLAN OF CARE VITAL SIGNS MEDICATIONS Medication Instructions Dosage Frequency Start Date End Date Duration Status Diazepam 5 MG TAKE ONE TABLET BY MOUTH TWICE DAILY 28 Active RESULTS No Results PROCEDURES No Known procedures INSTRUCTIONS MEDICATIONS ADMINISTERED No Known Medications MEDICAL (GENERAL) HISTORY Type Description Date Medical History Hx of DVT Medical History 2001 [place] Syndrome Medical History Closed fracture of one or more phalanges of foot Surgical History Right calf secondary to compartment syndrome 2005 Hospitalization History DVT- NO VENA CAVA FILTER 89,91,2000
--- OUTSIDE RECORDS SUMMARY | 2019-05-09 16:11 | XMS REPORT ---
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 [address]-38 7.5 MG Orally Once a day. LAB DRAW REQUIRED SHELBI Sep 18, 2015 1 tablet Results No Known Results Summary Purpose eClinicalWorks Submission
--- OUTSIDE RECORDS SUMMARY | 2019-05-09 16:11 | XMS REPORT ---
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 Active 078906015 Problem Primary hypercoagulable state D68.59 Active 48716824 Problem 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 Active 3721580 Problem Other male erectile dysfunction N52.8 Active 070094828 Problem Anxiety F41.9 Active 49076552 Problem BPH (benign prostatic hyperplasia) N40.0 Active 766143730 Problem Neuropathy G62.9 Active 250946126 Problem History of CVA (cerebrovascular accident) Z86.73 Active 748565758 ALLERGIES No Information ENCOUNTERS Encounter Location Date Diagnosis [place] [id number] [place] [address] February, [facility] [place] [id number] [place] [address] February, Medicare annual wellness visit, initial Z00.00 [facility] [place] [id number] [place] [address] Jan, Anxiety F41.9 [facility] [place] [id number] [place] [address] 17 Jan, 2018 [facility] [place] [id number] [place] [address] Dec, Anxiety F41.9 [place] [address] [place] [address] Dec, [place] [id number] [place] [address] 09 Dec, 2017 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 ; Cardiomegaly I51.7 ; 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 and 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 [place] [address] [address] [id number] [place] [address] Dec, 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 ; Cardiomegaly I51.7 ; 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 and 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 [place] [id number] [place] [address] Nov, [facility] [id number] [place] [id number] Nov, [place] [id number] [place] [address] Oct, [place] [address] [id number] [place] [address] Sep, [place] [address] [id number] [place] [address] Sep, Sprain of ligaments of cervical spine, subsequent encounter S13.4XXD and 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 [place] [address] [id number] [place] [address] Aug, [place] [address] [address] Aug, 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 [place] [address] [id number] [place] [address] Jul, [place] [address] [address] Jun, [place] [address] [id number] [place] [address] Jun, [place] [address] [address] May, [place] [address] [address] [id number] [place] [address] May, Sprain of ligaments of cervical spine, subsequent encounter S13.4XXD [place] [address] [id number] [place] [address] Apr, Medicare welcome exam Z00.00 ; Medicare annual wellness visit, initial Z00.00 ; Medicare annual wellness visit, subsequent Z00.00 and Vision changes H53.9 [place] [address] [place] [address] Apr, Anxiety F41.9 [place] [address] [address] Mar, History of CVA (cerebrovascular accident) Z86.73 ; Cardiomegaly I51.7 ; [facility] current use of anticoagulant therapy Z79.01 ; Hyperlipidemia, unspecified E78.5 ; Insomnia G47.00 ; BPH (benign prostatic hyperplasia) N40.0 ; Neuropathy G62.9 ; Anxiety F41.9 and Other male erectile dysfunction N52.8 [place] [address] [address] Mar, [place] [address] [address] February, [place] [address] [address] [id number] [place] [address] Jan, [place] [address] [address] Dec, [place] [address] [address] [id number] [place] [address] Nov, [place] [address] [address] [id number] [place] [address] Oct, [facility] [place] [id number] [place] [address] Oct, [place] [address] [address] [id number] [place] [address] Oct, [place] [address] [id number] [place] [address] Oct, [place] [address] [address] Oct, 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 and Hyperlipidemia, unspecified E78.5 [place] [id number] [place] [address] Aug, 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 ; Cardiomegaly I51.7 ; Insomnia G47.00 ; Neuropathy G62.9 ; Hyperlipidemia, unspecified E78.5 and Anxiety F41.9 [place] [address] [address] [id number] [place] [address] Aug, [place] [address] [address] [id number] [place] [address] Aug, Impacted cerumen of right ear H61.21 and Neuropathy G62.9 [facility] [address] [place] [id number] [place] [address] 14 Aug, 2016 Otalgia of right ear H92.01 and Impacted cerumen of right ear H61.21 [facility] [address] [place] [id number] [place] [address] Jan, Rhinitis, allergic J30.9 [place] [address] [id number] [place] [address] Jan, 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 ; [facility] current use of anticoagulant therapy Z79.01 ; Hyperlipidemia, unspecified E78.5 ; Cardiomegaly I51.7 ; Insomnia G47.00 and BPH (benign prostatic hyperplasia) N40.0 [place] [address] [address] Dec, [place] [address] [address] [id number] [place] [address] Nov, [facility] current use of anticoagulant therapy Z79.01 ; 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 ; URI (upper respiratory infection) J06.9 and Insomnia G47.00 [place] [id number] [place] [address] Oct, [address] [place] [address] Oct, 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 [place] [address] [address] [id number] [place] [address] Oct, Environmental allergies Z91.09 and Primary hypercoagulable state D68.59 [place] [id number] [place] [address] Sep, Hyperlipidemia, unspecified E78.5 and 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 [place] [address] [place] [address] Sep, Dyslipidemia 272.4 and [facility] current use of anticoagulant therapy Z79.01 [place] [address] [place] [address] Sep, Primary hypercoagulable state D68.59 [place] [address] [place] [address] Sep, [place] [address] [place] [address] Aug, Whiplash injury S13.4XXA [facility] [place] [address] [address] 09 Jul, 2015 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 [facility] [place] [address] [address] 06 Jul, 2015 Sprain of ligaments of cervical spine, subsequent encounter S13.4XXD ; Insomnia, unspecified G47.00 ; Hyperlipidemia, unspecified E78.5 and 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 [facility] [place] [address] [address] Jul, [place] [address] [address] [id number] [place] [address] Jun, [place] [address] [id number] [address] Apr, Dyslipidemia 272.4 [place] [address] [address] [id number] [place] [address] Apr, Primary hypercoagulable state 289.81 [facility] [place] [address] [address] Apr, Primary hypercoagulable state 289.81 [place] [address] [address] Apr, Primary hypercoagulable state 289.81 [place] [address] [address] 14 Jan, 2015 [place] [address] [address] Jan, [place] [id number] [address] Dec, [facility] [place] [address] [address] Dec, [place] [address] [address] Dec, [facility] [place] [facility] [address] [id number] [place] [address] Dec, 2014 [facility] [place] [facility] [address] [id number] [place] [address] Nov, 2014 [facility] [place] [facility] [address] [id number] [place] [address] Nov, 2014 [facility] [place] [facility] [address] [id number] [place] [address] Nov, 2014 [facility] [place] [facility] [address] [id number] [place] [address] Nov, [facility] [place] [facility] [address] [id number] [place] [address] Apr, [facility] [place] [facility] [address] [id number] [place] [address] Mar, [facility] [place] [facility] [address] [id number] [place] [address] 18 Mar, 2014 [facility] [place] [facility] [address] [id number] [place] [address] Mar, [facility] [place] [facility] [address] [id number] [place] [address] Mar, [facility] [place] [facility] [address] [id number] [place] [address] Mar, [facility] [place] [facility] [address] [id number] [place] [address] Mar, [facility] [place] [facility] [address] [id number] [place] [address] Mar, [facility] [place] [facility] [address] [id number] [place] [address] Mar, [facility] [place] [facility] [address] [id number] [place] [address] 04 Mar, 2014 [facility] [place] [facility] [address] [facility] [id number] [address] Mar, [facility] [place] [id number] [address] February, [facility] [place] [address] [facility] [id number] [address] February, [facility] [place] [address] [address] February, [facility] [place] [address] [facility] [id number] [address] February, [facility] [place] [address] [address] February, [facility] [place] [address] [address] February, [facility] [place] [address] [address] February, [facility] [place] [id number] [address] February, [facility] [place] [id number] [address] Jan, [facility] [place] [id number] [address] Jan, IMMUNIZATIONS No Known Immunizations SOCIAL HISTORY Never Assessed REASON FOR VISIT PLAN OF CARE VITAL SIGNS MEDICATIONS Unknown Medications RESULTS No Results PROCEDURES No Known procedures INSTRUCTIONS MEDICATIONS ADMINISTERED No Known Medications MEDICAL (GENERAL) HISTORY Type Description Date Medical History 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
--- OUTSIDE RECORDS SUMMARY | 2019-05-09 16:11 | XMS REPORT ---
Author Author OMID GRIFFITHS [employer] Address Unknown Phone Unavailable Care Team Providers Care Stenciling Machine Tender Name Role Phone OMID GRIFFITHS Unavailable Allergies, Adverse Reactions, Alerts Substance Reaction Event Type N.K.D.A. 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 Active 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.01 Active Problem Cardiomegaly I51.7 Active Medications Medication Code System Code Instructions Start Date End Date Status Dosage Coumadin [facility] [address]-28 7.5 MG Orally Once a day Nov 27, 2014 1 tablet Pravastatin Sodium [facility] [address]-28 20 MG Orally Once a day May 07, 2015 1 tablet Cyclobenzaprine HCl [facility] [address]-74 10 MG Orally Three times a day Jul 14, 2015 Sep 12, 2015 1 tablet Hydrocodone-Acetaminophen [facility] [address]-04 5-325 MG Orally 2 times a day Jul 14, 2015 Aug 13, 2015 1 tablet as needed Trazodone HCl [facility] [address]-63 100 MG Orally Once a day Jun 18, 2015 1 tablet at bedtime Viagra [facility] [address]-24 50 mg December 12, 2014 1 tablet by Oral route 1 time per day Procedures Procedure Coding System Code Date PROTHROMBIN TIME CPT-4 36765 Jul 14, 2015 VENIPUNCT, ROUTINE* CPT-4 69793 Jul 14, 2015 No Charge CPT-4 04765 Jul 14, 2015 Office Visit, Est Pt., Level 3 CPT-4 69712 Jul 14, 2015 [facility] VISIT ESTABLISHED PATIENT CPT-4 G0467 Jul 14, 2015 Vital Signs Date/Time: Jul 14, 2015 Temperature 98.0 F Weight 190.3 lbs Height 68 in Pain Scale 3-4 1-10 Blood Pressure Diastolic 90 mmHg Blood Pressure Systolic 146 mmHg Cardiac Monitoring Heart Rate 72 bpm BMI 28.93 Index Results Name Result Date Reference Range Unit Abnormality Flag ROUTINE VENIPUNCTURE PT/INR Summary Purpose eClinicalWorks Submission
--- OUTSIDE RECORDS SUMMARY | 2019-05-09 16:11 | XMS REPORT ---
Author TAMEKA More [facility] eClinicalWorks Address Unknown Phone Unavailable Care Team Providers Care Product Designer Name Role Phone TAMEKA RAM Unavailable Allergies, Adverse Reactions, Alerts Substance Reaction Event Type N.K.D.A. 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 Active Problem Cardiomegaly I51.7 Active Problem Primary hypercoagulable state D68.59 Active Assessment Impacted cerumen of right ear H61.21 Active Assessment Otalgia of right ear H92.01 Active Problem BPH (benign prostatic hyperplasia) N40.0 Active Problem URI (upper respiratory infection) J06.9 Active Problem Neuropathy G62.9 Active Problem Hyperlipidemia, unspecified E78.5 Active Problem jail current use of anticoagulant therapy Z79.01 Active Problem Insomnia G47.00 Active Problem Sprain of ligaments of cervical spine, subsequent encounter S13.4XXD Active Medications Medication Code System Code Instructions Start Date End Date Status Dosage Cortisporin [facility] [address]-19 3.5-52355-9 Otic Three times a day Aug 22, 2016 4 drops into affected ear Pravastatin Sodium [facility] [address]-04 40 mg Orally Once a day Sep 28, 2015 1 tablet Fluticasone Propionate [facility] [address]-11 50 MCG/ACT Nasally Once a day Nov 25, 2015 1 spray in each nostril Trazodone HCl [facility] 25562163048 100 MG TAKE ONE TABLET BY MOUTH AT BEDTIME Coumadin [facility] [address]-48 7.5 Orally Once a day Nov 02, 2015 1 tablet Procedures Procedure Coding System Code Date Office Visit, Est Pt., Level 3 CPT-4 47809 Aug 22, 2016 [facility] VISIT ESTABLISHED PATIENT CPT-4 G0467 Aug 22, 2016 Vital Signs Date/Time: Aug 22, 2016 Cardiac Monitoring Heart Rate 60 bpm Weight 193.4 lbs Height 68 in BMI 29.40 Index Blood Pressure Diastolic 94 mmHg Blood Pressure Systolic 150 mmHg Results No Known Results Summary Purpose eClinicalWorks Submission
--- OUTSIDE RECORDS SUMMARY | 2019-05-09 16:11 | XMS REPORT ---
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 Active 006092729 Problem Other male erectile dysfunction N52.8 Active 517987238 Problem Neuropathy G62.9 Active 765574237 Problem BPH (benign prostatic hyperplasia) N40.0 Active 263139688 Problem Insomnia G47.00 Active 075665759 Problem History of CVA (cerebrovascular accident) Z86.73 Active 508835674 Problem Anxiety F41.9 Active 52816163 ALLERGIES Unknown Allergies SOCIAL HISTORY No smoking Hx information available PLAN OF CARE VITAL SIGNS MEDICATIONS Medication Instructions Dosage Frequency Start Date End Date Duration Status Lopid 600 MG Orally Twice a day 1 tablet 12h Oct, 30 day(s) Active RESULTS No Results PROCEDURES No Known procedures IMMUNIZATIONS No Known Immunizations
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
--- OUTSIDE RECORDS SUMMARY | 2019-05-09 16:12 | XMS REPORT ---
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
--- OUTSIDE RECORDS SUMMARY | 2019-05-09 16:12 | XMS REPORT ---
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 Active 894688305 Problem Primary hypercoagulable state D68.59 Active 59685728 Problem 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 Active 5386811 Problem Other male erectile dysfunction N52.8 Active 771983915 Problem Anxiety F41.9 Active 34518470 Problem BPH (benign prostatic hyperplasia) N40.0 Active 261968890 Problem Neuropathy G62.9 Active 896699916 Problem History of CVA (cerebrovascular accident) Z86.73 Active 625504775 ALLERGIES No Information ENCOUNTERS Encounter Location Date Diagnosis [place] [id number] [place] [address] 13 Mar, 2018 Medicare annual wellness visit, initial Z00.00 ; Anxiety F41.9 ; 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 ; Neuropathy G62.9 ; Hyperlipidemia, unspecified E78.5 and Cardiomegaly I51.7 [facility] [address] [place] [address] February, longterm current use of anticoagulant therapy Z79.01 and 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 [facility] [address] [place] [id number] [place] [address] February, [facility] [address] [place] [address] February, Anxiety F41.9 [facility] [address] [address] Jan, Anxiety F41.9 [facility] [address] [place] [address] Jan, [facility] [id number] [place] [address] Dec, Anxiety F41.9 [facility] [address] [id number] [place] [address] Dec, [facility] [address] [place] [address] Dec, 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 ; Cardiomegaly I51.7 ; 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 and 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 [facility] [address] [place] [address] Dec, 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 ; Cardiomegaly I51.7 ; 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 and 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 [facility] [address] [address] Nov, [facility] [address] [id number] [id number] Nov, [facility] [address] [id number] [place] [address] Oct, [facility] [address] [address] Sep, [facility] [address] [place] [address] Sep, Sprain of ligaments of cervical spine, subsequent encounter S13.4XXD and 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 [place] [address] [place] [id number] [place] [address] Aug, [place] [address] [place] [id number] [place] [address] Aug, 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 [place] [address] [place] [id number] [place] [address] Jul, [place] [address] [place] [id number] [place] [address] Jun, [place] [address] [place] [id number] [place] [address] Jun, [place] [address] [place] [id number] [place] [address] May, [place] [address] [place] [id number] [place] [address] May, Sprain of ligaments of cervical spine, subsequent encounter S13.4XXD [place] [address] [place] [id number] [place] [address] Apr, Medicare welcome exam Z00.00 ; Medicare annual wellness visit, initial Z00.00 ; Medicare annual wellness visit, subsequent Z00.00 and Vision changes H53.9 [place] [address] [place] [address] Apr, Anxiety F41.9 [place] [address] [place] [address] Mar, History of CVA (cerebrovascular accident) Z86.73 ; Cardiomegaly I51.7 ; longterm current use of anticoagulant therapy Z79.01 ; Hyperlipidemia, unspecified E78.5 ; Insomnia G47.00 ; BPH (benign prostatic hyperplasia) N40.0 ; Neuropathy G62.9 ; Anxiety F41.9 and Other male erectile dysfunction N52.8 [facility] [address] [address] 14 Mar, 2017 [facility] [address] [place] [id number] [place] [address] February, [facility] [address] [place] [id number] [place] [address] Jan, [facility] [address] [id number] [place] [address] Dec, [facility] [address] [id number] [place] [address] Nov, [facility] [address] [id number] [place] [address] Oct, [facility] [address] [place] [id number] [place] [address] Oct, [facility] [address] [id number] [place] [address] Oct, [facility] [address] [place] [address] Oct, [place] [address] [place] [address] Oct, Hyperlipidemia, unspecified E78.5 and longterm current use of anticoagulant therapy Z79.01 [place] [address] [place] [address] Aug, longterm current use of anticoagulant therapy Z79.01 ; Cardiomegaly I51.7 ; Insomnia G47.00 ; Neuropathy G62.9 ; Hyperlipidemia, unspecified E78.5 and Anxiety F41.9 [place] [address] [place] [address] Aug, [place] [address] [place] [address] Aug, Impacted cerumen of right ear H61.21 and Neuropathy G62.9 [facility] [address] [address] 14 Aug, 2016 Otalgia of right ear H92.01 and Impacted cerumen of right ear H61.21 [facility] [address] [address] 27 Jan, 2016 Rhinitis, allergic J30.9 [place] [id number] [place] [address] 07 Jan, 2016 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 ; longterm current use of anticoagulant therapy Z79.01 ; Hyperlipidemia, unspecified E78.5 ; Cardiomegaly I51.7 ; Insomnia G47.00 and BPH (benign prostatic hyperplasia) N40.0 [place] [id number] [place] [address] Dec, [place] [id number] [place] [address] Nov, longterm current use of anticoagulant therapy Z79.01 ; 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 ; URI (upper respiratory infection) J06.9 and Insomnia G47.00 [facility] [id number] [place] [address] Oct, [address] [place] [address] Oct, 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 [address] [place] [address] Oct, Environmental allergies Z91.09 and Primary hypercoagulable state D68.59 [address] [place] [address] Sep, Hyperlipidemia, unspecified E78.5 and 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 [address] [place] [address] Sep, Dyslipidemia 272.4 and 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 [place] [address] [place] [address] Sep, Primary hypercoagulable state D68.59 [place] [address] [place] [id number] [place] [address] Sep, [place] [address] [place] [id number] [place] [address] Aug, Whiplash injury S13.4XXA [place] [address] [place] [id number] [place] [address] Jul, 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 [place] [address] [place] [id number] [place] [address] Jul, Sprain of ligaments of cervical spine, subsequent encounter S13.4XXD ; Insomnia, unspecified G47.00 ; Hyperlipidemia, unspecified E78.5 and 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 [place] [address] [place] [address] Jul, [place] [address] [place] [id number] [place] [address] Jun, [place] [address] [place] [address] Apr, Dyslipidemia 272.4 [place] [address] [place] [id number] [place] [address] Apr, Primary hypercoagulable state 289.81 [place] [address] [place] [address] Apr, Primary hypercoagulable state 289.81 [place] [address] [place] [address] Apr, Primary hypercoagulable state 289.81 [place] [address] [place] [id number] [place] [address] [place] [address] 14 Jan, 2014 [facility] [place] [facility] [address] [id number] [place] [address] 13 Jan, 2014 [facility] [place] [facility] [address] [id number] [place] [address] 26 Dec, 2014 [facility] [place] [facility] [address] [id number] [place] [address] Dec, 2014 [facility] [place] [facility] [address] [id number] [place] [address] Dec, 2014 [facility] [place] [facility] [address] [id number] [place] [address] Dec, 2014 [facility] [place] [facility] [address] [id number] [place] [address] 19 Nov, 2014 [facility] [place] [facility] [address] [id number] [place] [address] 19 Nov, 2014 [facility] [place] [facility] [address] [id number] [place] [address] 17 Nov, 2014 [facility] [place] [facility] [address] [id number] [place] [address] 17 Nov, 2014 [facility] [place] [facility] [address] [facility] [id number] [place] [address] 15 Apr, 2014 [facility] [place] [facility] [address] [id number] [place] [address] 18 Mar, 2014 [facility] [place] [facility] [address] [id number] [place] [address] 18 Mar, 2014 [facility] [place] [facility] [address] [id number] [place] [address] 16 Mar, 2014 [facility] [place] [facility] [address] [id number] [place] [address] 16 Mar, 2014 [facility] [place] [facility] [address] [id number] [place] [address] Mar, [facility] [address] [id number] [place] [address] Mar, [facility] [address] [id number] [place] [address] Mar, [facility] [address] [id number] [place] [address] Mar, [facility] [address] [id number] [place] [address] Mar, [facility] [address] [id number] [place] [address] Mar, [facility] [address] [id number] [place] [address] February, [facility] [address] [facility] [id number] [place] [address] February, [facility] [address] [id number] [place] [address] February, [facility] [address] [id number] [place] [address] February, [facility] [address] [facility] [id number] [place] [address] February, [facility] [address] [facility] [id number] [place] [address] February, [facility] [address] [id number] [address] February, [facility] [address] [id number] [place] [address] February, [facility] [address] [id number] [place] [address] Jan, [facility] [address] [facility] [id number], [place] [address] Jan, IMMUNIZATIONS No Known Immunizations SOCIAL HISTORY Never Assessed REASON FOR VISIT Lab (walk-in)-[facility] PLAN OF CARE VITAL SIGNS MEDICATIONS Unknown Medications RESULTS Name Result Date Reference Range INR (IN HOUSE) 2017-09-14 INR 3.3 1.10 - 3.30 PREVIOUS INR 1.4 CURRENT COUMADIN DOSE 7.5mg QD NEW COUMADIN DOSE Lot # [id number] Exp date 10/2017 [facility] 2017-09-14 PROCEDURES Procedure Date Ordered Result Body Site No Charge Sep 14, 2017 PROTHROMBIN TIME Sep 14, 2017 INSTRUCTIONS MEDICATIONS ADMINISTERED No Known Medications MEDICAL (GENERAL) HISTORY Type Description Date Medical History Hx of DVT Medical History 2001 Gullian [place] Syndrome Medical History Closed fracture of one or more phalanges of foot Surgical History Right calf secondary to compartment syndrome 2005 Hospitalization History DVT- NO VENA CAVA FILTER 89,91,2000
--- OUTSIDE RECORDS SUMMARY | 2019-05-09 16:12 | XMS REPORT ---
Author Author OLEGARIO SIMEON [facility] Address [address] [place] [address] Care Team Providers Care Engine Cowling Installer Name Role Phone OLEGARIO SIMEON Unavailable PROBLEMS Type Condition ICD9-CM Code [id number] Code Onset Dates Condition Status SNOMED Code 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 Active 673459204 Problem Insomnia G47.00 Active 300406737 Problem Hyperlipidemia, unspecified E78.5 Active 26746292 Problem Cardiomegaly I51.7 Active 6539889 Problem Atherosclerotic heart disease of [place] coronary artery with unspecified angina pectoris I25.119 Active 387215125 Problem Primary hypercoagulable state D68.59 Active 44262203 Problem 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 Active 8852867 Problem Other male erectile dysfunction N52.8 Active 260037783 Problem Anxiety F41.9 Active 73936317 Problem BPH (benign prostatic hyperplasia) N40.0 Active 013248212 Problem Neuropathy G62.9 Active 364637786 Problem History of CVA (cerebrovascular accident) Z86.73 Active 546878520 ALLERGIES No Information ENCOUNTERS Encounter Location Date Diagnosis [id number] [place] [address] Mar, Medicare annual wellness visit, initial Z00.00 ; Primary hypercoagulable state D68.59 ; Anxiety F41.9 ; Atherosclerotic heart disease of [place] coronary artery with unspecified angina pectoris I25.119 ; Neuropathy G62.9 ; Hyperlipidemia, unspecified E78.5 ; Cardiomegaly I51.7 ; 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 and Insomnia G47.00 [facility] [id number] [address] Mar, 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 [place] [address] [address] Mar, 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 [place] [address] [place] [address] 24 Feb, 2018 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 and History of Gu[place]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 [place] [address] [address] February, [place] [address] [place] [address] February, Anxiety F41.9 [place] [id number] [place] [address] Jan, Anxiety F41.9 [place] [address] [address] Jan, [place] [address] [place] [address] Dec, Anxiety F41.9 [place] [address] [place] [address] Dec, [place] [address] [address] Dec, History of [place]illain[place]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 ; Cardiomegaly I51.7 ; Atherosclerotic heart disease of [place] coronary artery with unspecified angina pectoris I25.119 and 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 [place] [id number] [address] Dec, History of [place]illain[place]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 ; Cardiomegaly I51.7 ; Atherosclerotic heart disease of [place] coronary artery with unspecified angina pectoris I25.119 and 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 [place] [address] [address] Nov, [address] [id number] Nov, [facility] [address] [address] Oct, [facility] [address] [address] Sep, [facility] [address] [place] [address] Sep, Sprain of ligaments of cervical spine, subsequent encounter S13.4XXD and 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 [facility] [address] [address] Aug, [place] [id number] [place] [address] 07 Aug, 2017 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 [place] [id number] [place] [address] Jul, [facility] [address] [address] Jun, [place] [address] [place] [address] Jun, [facility] [address] [address] May, [place] [address] [address] May, Sprain of ligaments of cervical spine, subsequent encounter S13.4XXD [facility] [address] [address] Apr, Medicare welcome exam Z00.00 ; Medicare annual wellness visit, initial Z00.00 ; Medicare annual wellness visit, subsequent Z00.00 and Vision changes H53.9 [facility] [address] [address] Apr, Anxiety F41.9 [place] [address] [address] Mar, History of CVA (cerebrovascular accident) Z86.73 ; Cardiomegaly I51.7 ; 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 ; Hyperlipidemia, unspecified E78.5 ; Insomnia G47.00 ; BPH (benign prostatic hyperplasia) N40.0 ; Neuropathy G62.9 ; Anxiety F41.9 and Other male erectile dysfunction N52.8 [place] [id number] [place] [address] Mar, [place] [id number] [place] [address] February, [place] [id number] [place] [address] Jan, [place] [id number] [place] [address] Dec, [place] [id number] [address] Nov, [place] [id number] [place] [address] Oct, [place] [id number] [address] Oct, [place] [address] [address] Oct, [place] [id number] [address] Oct, [place] [address] [address] Oct, 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 and Hyperlipidemia, unspecified E78.5 [place] [address] [address] Aug, 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 ; Cardiomegaly I51.7 ; Insomnia G47.00 ; Neuropathy G62.9 ; Hyperlipidemia, unspecified E78.5 and Anxiety F41.9 [place] [id number] [place] [address] Aug, [place] [id number] [place] [address] Aug, Impacted cerumen of right ear H61.21 and Neuropathy G62.9 [facility] [address] [address] 14 Aug, 2016 Otalgia of right ear H92.01 and Impacted cerumen of right ear H61.21 [facility] [address] [address] Jan, Rhinitis, allergic J30.[address] [address] Jan, Atherosclerotic heart disease of [place] coronary artery with unspecified angina pectoris I25.119 ; 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 ; Hyperlipidemia, unspecified E78.5 ; Cardiomegaly I51.7 ; Insomnia G47.00 and BPH (benign prostatic hyperplasia) N40.0 [place] [id number] [place] [address] Dec, [place] [id number] [place] [address] Nov, 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 ; Atherosclerotic heart disease of [place] coronary artery with unspecified angina pectoris I25.119 ; URI (upper respiratory infection) J06.9 and Insomnia G47.00 [facility] [address] [id number] [place] [address] Oct, [place] [id number] [place] [address] Oct, 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 [place] [id number] [place] [address] Oct, Environmental allergies Z91.09 and Primary hypercoagulable state D68.59 [place] [id number] [place] [address] Sep, Hyperlipidemia, unspecified E78.5 and 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 [place] [id number] [place] [address] Sep, Dyslipidemia 272.4 and 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 [place] [id number] [place] [address] Sep, Primary hypercoagulable state D68.59 [place] [id number] [place] [address] Sep, [place] [id number] [place] [address] Aug, Whiplash injury S13.4XXA [place] [id number] [place] [address] Jul, 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 [place] [id number] [place] [address] Jul, Sprain of ligaments of cervical spine, subsequent encounter S13.4XXD ; Insomnia, unspecified G47.00 ; Hyperlipidemia, unspecified E78.5 and 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 [place] [address] [address] Jul, [place] [id number] [place] [address] Jun, [place] [id number] [place] [address] Apr, Dyslipidemia 272.4 [place] [id number] [place] [address] Apr, Primary hypercoagulable state 289.81 [facility] [address] [facility] [id number] [place] [address] Apr, Primary hypercoagulable state 289.81 [facility] [address] [facility] [id number] [place] [address] Apr, Primary hypercoagulable state 289.81 [facility] [address] [facility] [id number] [place] [address] Jan, [facility] [address] [facility] [id number] [place] [address] Jan, [facility] [address] [place] [address] Dec, [facility] [id number] [place] [address] Dec, [facility] [address] [place] [address] Dec, [facility] [id number] [place] [address] Dec, [facility] [address] [place] [address] Nov, [facility] [id number] [address] Nov, [facility] [address] [address] Nov, [facility] [address] [facility] [id number] [place] [address] Nov, [facility] [address] [place] [address] Apr, [facility] [address] [facility] [id number] [address] Mar, [facility] [id number] [address] Mar, [facility] [place] [facility] [address] [id number] [place] [address] Mar, [facility] [place] [facility] [address] [id number] [place] [address] Mar, [facility] [place] [facility] [address] [id number] [place] [address] Mar, [facility] [place] [facility] [address] [id number] [place] [address] Mar, [facility] [place] [facility] [address] [id number] [place] [address] Mar, [facility] [place] [facility] [address] [id number] [place] [address] Mar, [facility] [place] [facility] [address] [id number] [place] [address] Mar, [facility] [place] [facility] [address] [id number] [place] [address] Mar, [facility] [place] [facility] [address] [id number] [place] [address] February, [facility] [place] [facility] [address] [id number] [place] [address] February, [facility] [place] [facility] [address] [id number] [place] [address] February, [facility] [place] [facility] [address] [id number] [place] [address] February, [facility] [place] [facility] [address] [id number] [place] [address] February, [facility] [place] [facility] [address] [id number] [place] [address] February, [facility] [place] [facility] [address] [id number] [place] [address] February, [facility] [place] [facility] [address] [facility] [id number] [place] [address] February, [facility] [address] [facility] [id number] [place] [address] Jan, [facility] [address] [facility] [id number] [place] [address] Jan, IMMUNIZATIONS No Known Immunizations SOCIAL HISTORY Never Assessed REASON FOR VISIT Diazepam 10/05 PLAN OF CARE VITAL SIGNS MEDICATIONS Medication Instructions Dosage Frequency Start Date End Date Duration Status Diazepam 5 mg Orally Twice a day 1 tablet 12 Active RESULTS No Results PROCEDURES No Known procedures INSTRUCTIONS MEDICATIONS ADMINISTERED No Known Medications MEDICAL (GENERAL) HISTORY Type Description Date Medical History Hx of DVT Medical History 2001 [place] Syndrome Medical History Closed fracture of one or more phalanges of foot Surgical History Right calf secondary to compartment syndrome 2005 Hospitalization History DVT- NO VENA CAVA FILTER 89,91,2000
--- OUTSIDE RECORDS SUMMARY | 2019-05-09 16:12 | XMS REPORT ---
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 Active 576638664 Problem Cardiomegaly I51.7 Active 6671362 Problem Atherosclerotic heart disease of [place] coronary artery with unspecified angina pectoris I25.119 Active 887800434 Problem Other male erectile dysfunction N52.8 Active 754729648 Problem Neuropathy G62.9 Active 590021394 Problem BPH (benign prostatic hyperplasia) N40.0 Active 301392402 Problem Insomnia G47.00 Active 425714471 Problem History of CVA (cerebrovascular accident) Z86.73 Active 096307525 Problem Anxiety F41.9 Active 53564729 ALLERGIES Unknown Allergies SOCIAL HISTORY No smoking Hx information available PLAN OF CARE VITAL SIGNS MEDICATIONS Medication Instructions Dosage Frequency Start Date End Date Duration Status Valium 5 mg Orally Twice a day 1 tablet as needed 12h 28 Active RESULTS No Results PROCEDURES No Known procedures IMMUNIZATIONS No Known Immunizations
--- OUTSIDE RECORDS SUMMARY | 2019-05-09 16:12 | XMS REPORT ---
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 Active 834971002 Problem Other male erectile dysfunction N52.8 Active 159820271 Problem Neuropathy G62.9 Active 496253634 Problem BPH (benign prostatic hyperplasia) N40.0 Active 995822516 Problem Insomnia G47.00 Active 085119089 Problem History of CVA (cerebrovascular accident) Z86.73 Active 947658883 Problem Anxiety F41.9 Active 58146972 ALLERGIES No Information SOCIAL HISTORY Never Assessed PLAN OF CARE VITAL SIGNS MEDICATIONS Medication Instructions Dosage Frequency Start Date End Date Duration Status Valium 5 mg Orally Twice a day 1 tablet as needed 12h 28 Active RESULTS No Results PROCEDURES No Known procedures IMMUNIZATIONS No Known Immunizations MEDICAL (GENERAL) HISTORY Type Description Date Medical History Hx of DVT Medical History 2002 [place] Syndrome Medical History Closed fracture of one or more phalanges of foot Surgical History Right calf secondary to compartment syndrome 2005 Hospitalization History DVT- NO VENA CAVA FILTER 89,91,2000
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
--- OUTSIDE RECORDS SUMMARY | 2019-05-09 16:13 | XMS REPORT ---
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
--- NOTE | 2019-05-09 16:20 | ED Upper Extremity ---
General Chief Complaint: Upper Extremity Stated Complaint: L ARM PAIN AND SWELLING Nursing Triage Note: c/o left arm pain and swelling. h/o blood clots . was off blood thinner x 1 week and restarted it 1 week ago. denies dyspnea and no acute sighns of dyspnea noted. pt alert gcs 15 and here with adult female. Nursing Sepsis Screen: No Definite Risk Source: patient Exam Limitations: no limitations History of Present Illness Date Seen by Provider: May 09, 2019 Time Seen by Provider: 16:16 Initial Comments To ER with reports of left arm swelling for the past few days. 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 He ran out of this about 2 weeks ago and was off of it for one week, resumed last Monday, 8 days ago. During that time when he was off of that he went to [place] visit son and mother, awakened the next morning after sleeping with some swelling of the left elbow. He denies shortness of breath. Denies known injury to the arm. Onset: just prior to arrival Severity: moderate Pain/Injury Location: left arm, left elbow Method of Injury: unknown Modifying Factors: Improves With Movement Allergies and Home Medications Allergies Coded Allergies: No Known Drug Allergies (Unverified , 03/04/14) Home Medications Cyclobenzaprine HCl 10 Mg Tablet, 10 MG PO Q8H PRN for SPASMS Prescribed by: SONAL VENTURA on 07/02/15 2306 Hydrocodone Bit/Acetaminophen 1 Tab Tab, 1 EACH PO Q6H PRN for BREAKTHROUGH PAIN Prescribed by: DRAKE ROBERTSON on 01/20/18 192 Warfarin Sod 7.5 Mg Tablet, 1 EACH PO DAILY, (Reported) Patient Home Medication List Home Medication List Reviewed: Yes Review of Systems Constitutional: see HPI EENTM: see HPI, other (healed tracheostomy scar) Respiratory: see HPI Cardiovascular: no symptoms reported Genitourinary: no symptoms reported Musculoskeletal: see HPI, other (atrophy of the thenar eminences bilaterally, 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 There is swelling to the left arm most noticeable at the elbow, without ecchymosis or erythema, no puncture wound or obvious sign of injury.) Skin: no symptoms reported Past Qtipyhk-Pdgufy-Esygdl Hx Patient Social History Alcohol Use: Denies Use Recreational Drug Use: No Smoking Status: Never a Smoker Recent Foreign Travel: No Contact w/Someone Who Travel: No Recent Infectious Disease Expo: No Physical Abuse: No Sexual Abuse: No Past Medical History Surgeries: Yes (r calf for copartment syndrome, ) Respiratory: No Cardiac: Yes Deep Vein Thrombosis Neurological: Yes (GUILLAIN-BARRE) Genitourinary: No Gastrointestinal: No Musculoskeletal: No Endocrine: No Cancer: No Psychosocial: No Integumentary: No Blood Disorders: Yes (PROTEIN S DIFFICIENCY) Family Medical History No Pertinent Family Hx Physical Exam Vital Signs Vital Signs - First Documented 05/09/19 16:01 Temp 97.4 Pulse 76 Resp 12 B/P (MAP) 142/82 (102) Pulse Ox 98 O2 Delivery Room Air Capillary Refill : Less Than 3 Seconds Height, Weight, BMI Height: 5'8.00" Weight: 200lbs. oz. 90.543646zt; BMI Method:Stated General Appearance: WD/WN, no apparent distress Neck: non-tender, full range of motion Respiratory: no respiratory distress, no accessory muscle use Shoulder: normal inspection, non-tender Elbow/Forearm: normal inspection, Left, swelling Wrist: Yes normal inspection, Yes non-tender Hand: normal inspection, non-tender Neurologic/Psychiatric: alert, normal mood/affect, oriented x 3 Skin: normal color, warm/dry Progress/Results/Core Measures Results/Orders Lab Results Laboratory Tests Test 05/09/19 16:28 Range/Units White Blood Count 6.2 4.3-11.0 10^3/uL Red Blood Count 4.63 4.35-5.85 10^6/uL Hemoglobin 14.6 13.3-17.7 G/DL Hematocrit 44 40-54 % Mean Corpuscular Volume 95 80-99 FL Mean Corpuscular Hemoglobin 32 25-34 PG Mean Corpuscular Hemoglobin Concent 33 32-36 G/DL Red Cell Distribution Width 13.4 10.0-14.5 % Platelet Count 201 130-400 10^3/uL Mean Platelet Volume 10.3 7.4-10.4 FL Neutrophils (%) (Auto) 51 42-75 % Lymphocytes (%) (Auto) 39 12-44 % Monocytes (%) (Auto) 8 0-12 % Eosinophils (%) (Auto) 2 0-10 % Basophils (%) (Auto) 1 0-10 % Neutrophils # (Auto) 3.2 1.8-7.8 X 10^3 Lymphocytes # (Auto) 2.4 1.0-4.0 X 10^3 Monocytes # (Auto) 0.5 0.0-1.0 X 10^3 Eosinophils # (Auto) 0.1 0.0-0.3 10^3/uL Basophils # (Auto) 0.0 0.0-0.1 10^3/uL Prothrombin Time 27.9 H 12.2-14.7 SEC INR Comment 2.5 H 0.8-1.4 Sodium Level 139 135-145 MMOL/L Potassium Level 3.8 3.6-5.0 MMOL/L Chloride Level 106 98-107 MMOL/L Carbon Dioxide Level 22 21-32 MMOL/L Anion Gap 11 5-14 MMOL/L Blood Urea Nitrogen 9 7-18 MG/DL Creatinine 0.70 0.60-1.30 MG/DL Estimat Glomerular Filtration Rate > 60 BUN/Creatinine Ratio 13 Glucose Level 166 H 70-105 MG/DL Calcium Level 9.2 8.5-10.1 MG/DL My Orders Orders - ROSAURA LOCKWOOD APRN Protime With Inr (05/09/19 16:15) Cbc With Automated Diff (05/09/19 16:15) Basic Metabolic Panel (05/09/19 16:15) Us Venous Upper Ext Lt (05/09/19 16:15) Vital Signs/I&O Blood Pressure Mean: 102 Departure Impression Primary Impression: Superficial venous thrombosis of left arm Disposition: 01 HOME, SELF-CARE Condition: Stable Departure-Patient Inst. Decision time for Depature: 17:06 Referrals: [facility] (PCP) Primary Care Physician AMANDA TY (Family) Primary Care Physician Patient Instructions: Superficial Phlebitis Add. Discharge Instructions: . Continue with the warfarin, you are therapeutic on your INR. Return to ER for any worsening, follow-up with your doctor later this week. All discharge instructions reviewed with patient and/or family. Voiced understanding. ROSAURA LOCKWOOD APRN May 09, 2019 16:20
--- NOTE | 2019-05-09 16:28 | NUR ---
carlos stick for labs by me and to lab by me and pt is going to u/s now.
[2019-05-09 16:36] LABS: BASOPHILS % (AUTO) 1 % (0-10); EOSINOPHILS # (AUTO) 0.1 10^3/uL (0.0-0.3); EOSINOPHILS % (AUTO) 2 % (0-10); HEMATOCRIT 44 % (40-54); HEMOGLOBIN 14.6 G/DL (13.3-17.7); LYMPHOCYTES # (AUTO) 2.4 X 10^3 (1.0-4.0); LYMPHOCYTES % (AUTO) 39 % (12-44); MEAN CORPUSCULAR HEMOGLOBIN 32 PG (25-34); MEAN CORPUSCULAR HGB CONC 33 G/DL (32-36); MEAN CORPUSCULAR VOLUME 95 FL (80-99); MEAN PLATELET VOLUME 10.3 FL (7.4-10.4); MONOCYTES # (AUTO) 0.5 X 10^3 (0.0-1.0); MONOCYTES % (AUTO) 8 % (0-12); NEUTROPHILS # (AUTO) 3.2 X 10^3 (1.8-7.8); NEUTROPHILS % (AUTO) 51 % (42-75); PLATELET COUNT 201 10^3/uL (130-400); RED CELL DISTRIBUTION WIDTH 13.4 % (10.0-14.5); WHITE BLOOD COUNT 6.2 10^3/uL (4.3-11.0)
[2019-05-09 16:45] LABS: INR 2.5 (0.8-1.4); PROTHROMBIN TIME PATIENT 27.9 SEC (12.2-14.7)
[2019-05-09 16:53] LABS: BUN/CREATININE RATIO 13; CALCIUM 9.2 MG/DL (8.5-10.1); CARBON DIOXIDE 22 MMOL/L (21-32); CHLORIDE 106 MMOL/L (98-107); GFR ESTIMATED > 60; GLUCOSE 166 MG/DL (70-105); POTASSIUM 3.8 MMOL/L (3.6-5.0); SODIUM 139 MMOL/L (135-145)
--- NOTE | 2019-05-09 17:04 | Diagnostic Imaging Report ---
PROCEDURE: US venous upper extremity left. TECHNIQUE: Multiple realtime grayscale images were obtained of left upper extremity in various projections. Additional spectral analysis and color Doppler duplex images were also obtained. INDICATION: Venous thrombus. FINDINGS: The jugular and the deep venous system is patent. The superficial clot in the cephalic vein terminates prior to its junction with the axillary and subclavian veins. No fluid collection. IMPRESSION: Superficial clot in the cephalic vein. No evidence for deep vein thrombus. Dictated by: Dictated on workstation # [id number]
[2019-05-09 17:18] VITALS: BP 141/77
--- NOTE | 2019-05-09 17:18 | NUR ---
d/c instructions to pt. told to read all papers. no scripts given. pt left ambulatory with adult female. pt knows f/u. i went over the handtyped by dr pink on the chart. pt had no iv. pt alert gcs 15 and no acute sighns of dyspnea noted at d/c.
== END 2019-05-09 17:18 | disposition home or self-care (01) ==
LOC: EDUNIT# 15:54 → ER 15:55
DX: I82.612 Acute embolism and thrombosis of superficial veins of left upper extremity (principal); Z86.718 Personal history of other venous thrombosis and embolism; Z79.01 Long term (current) use of anticoagulants; Z86.2 Personal history of diseases of the blood and blood-forming organs and certain disorders involving the immune mechanism
CPT/HCPCS: 36415; 80048; 85025; 85610